=== PATIENT | male | born 1955 | race Caucasian/White ===

== ENCOUNTER 2020-05-25 06:15 | Inpatient (IN) ==
--- NOTE | 2020-05-06 14:17 | PAT Medication Instructions ---
Medication Instructions Date of Service May 06, 2020 Home Medications Medication Instructions Recorded nitroglycerin 0.4 mg sublingual 0.4 mg SL Q5M PRN #25 tab 12/25/18 tablet nitroglycerin 0.4 mg sublingual tablet 0.4 mg SL Q5M PRN cyclobenzaprine 10 mg tablet 10 mg PO Q12H PRN sertraline 50 mg tablet 50 mg PO QAM zolpidem 10 mg tablet 10 mg PO HS PRN B-complex with vitamin C 1 cap PO HS aspirin [Adult Low Dose Aspirin] 162 mg PO HS cholecalciferol (vitamin D3) 1,000 units PO QAM ezetimibe [Zetia] 10 mg PO HS fluticasone propionate [Flonase] 2 spray INTRANASAL DAILY PRN hydrocodone-acetaminophen [Vicodin] 1 tab PO Q6H PRN levothyroxine 88 mcg PO QAM melatonin 3 mg PO HS multivitamin [Multiple Vitamins] 1 tab PO HS nebivolol [Bystolic] 10 mg PO HS omeprazole 20 mg PO QAM ranolazine 2,000 mg PO HS rosuvastatin [Crestor] 40 mg PO HS tramadol 100 mg PO Q6H PRN Continue as directed nitroglycerin 0.4 mg sublingual tablet 0.4 mg SL Q5M PRN(if needed) ASK your prescriber and surgeon aspirin [Adult Low Dose Aspirin] 162 mg PO HS DO NOT take the morning of surgery cyclobenzaprine 10 mg tablet 10 mg PO Q12H PRN cholecalciferol (vitamin D3) 1,000 units PO QAM Take morning of surgery With a small sip of water, OTHERWISE NOTHING TO EAT OR DRINK AFTER MIDNIGHT: sertraline 50 mg tablet 50 mg PO QAM fluticasone propionate [Flonase] 2 spray INTRANASAL DAILY PRN (if needed) hydrocodone-acetaminophen [Vicodin] 1 tab PO Q6H PRN (okay to take up to 4 hours prior to surgery if needed) levothyroxine 88 mcg PO QAM omeprazole 20 mg PO QAM tramadol 100 mg PO Q6H PRN (okay to take up to 4 hours prior to surgery if needed) Take evening before surgery cyclobenzaprine 10 mg tablet 10 mg PO Q12H PRN (if needed) zolpidem 10 mg tablet 10 mg PO HS PRN (if needed) B-complex with vitamin C 1 cap PO HS ezetimibe [Zetia] 10 mg PO HS fluticasone propionate [Flonase] 2 spray INTRANASAL DAILY PRN (if needed) hydrocodone-acetaminophen [Vicodin] 1 tab PO Q6H PRN (if needed) melatonin 3 mg PO HS multivitamin [Multiple Vitamins] 1 tab PO HS nebivolol [Bystolic] 10 mg PO HS ranolazine 2,000 mg PO HS rosuvastatin [Crestor] 40 mg PO HS tramadol 100 mg PO Q6H PRN (if needed) Other Notes If you have any questions please call us at [phone] or [phone] or [phone] or [phone]
--- NOTE | 2020-05-10 14:35 | Anesthesiology Consultation ---
Date of Service May 10, 2020 Assessment & Plan (1) Encounter for pre-operative examination: - Per assessment on 05/10: Travel screen negative. No known COVID-19 positive contacts or current COVID-19 related symptoms. Patient had COVID related symptoms 02/18/20 of joint/abdominal pain, low grade fever, decreased taste/smell which resolved after short period of time without intervention except for mild residual taste deficits. Patient did not have any other recent episodes consistent with Covid related symptoms except those surrounding 02/17. Patient did not have formal testing at time of symptoms but did have COVID a ntibodies test 04/19/20 which was positive ([facility]). DOS > 21 days since COVID antibodies tested positive. Surgeon arranging preop COVID testing (scheduled 05/18; [facility]). Awaiting results. - PCP office visit: 05/11/20: "He is doing well from a cardiopulmonary standpoint. Risk would be mild to moderate given multiple comorbidities.. medically optimized for surgery" - ASA instructions per surgeon/prescriber - Rib fracture: Mechanical fall 04/17/19 > Acute/subacute nondisplaced right lateral 7th rib fracture per 05/06/20 CT. Pt reports residual rib pain but improving. PCP monitoring. Chart Review Chart Review: Acceptable Risk for Surgery (pending surgeon-ordered cardiology clearance) and Patient seen in Pre Admission Testing Teaching & Discussion Pre-Anesthesia Teaching/Discussion Notes: Instructed NPO after midnight before surgery,except medications with 15 cc of water. Medication instructions provided according to the PAT guidelines. History Surgery Operation Date: 05/25/20 10:05 Proposed Procedures p L5-S1 Decompression Fusion, Spinal Cord Monitoring - Ramone Mann DO Height/Weight Height: 5 ft 11 in Weight: 100.8 kg Allergies Allergy/AdvReac Type Severity Reaction Status Date / Time LORCET Allergy Mild Itching Uncoded 05/04/20 10:49 Medications Home Medications Medication Instructions Recorded Confirmed Last Taken nitroglycerin 0.4 mg sublingual 0.4 mg SL Q5M PRN #25 tab 12/25/18 05/04/20 Unknown tablet cyclobenzaprine 10 mg tablet 10 mg PO Q12H PRN tab 02/25/19 05/04/20 Unknown sertraline 50 mg tablet 50 mg PO QAM 02/25/19 05/04/20 Unknown zolpidem 10 mg tablet 10 mg PO HS PRN tab 02/25/19 05/04/20 Unknown B-complex with vitamin C 1 cap PO HS 05/04/20 05/04/20 Unknown aspirin [Adult Low Dose Aspirin] 162 mg PO HS 05/04/20 05/04/20 Unknown cholecalciferol (vitamin D3) 1,000 units PO QAM 05/04/20 05/04/20 Unknown ezetimibe [Zetia] 10 mg PO HS 05/04/20 05/04/20 Unknown fluticasone propionate [Flonase] 2 spray INTRANASAL DAILY PRN 05/04/20 05/04/20 Unknown hydrocodone-acetaminophen [Vicodin] 1 tab PO Q6H PRN 05/04/20 05/04/20 Unknown levothyroxine 88 mcg PO QAM 05/04/20 05/04/20 Unknown melatonin 3 mg PO HS 05/04/20 05/04/20 Unknown multivitamin [Multiple Vitamins] 1 tab PO HS 05/04/20 05/04/20 Unknown nebivolol [Bystolic] 10 mg PO HS 05/04/20 05/04/20 Unknown omeprazole 20 mg PO QAM 05/04/20 05/04/20 Unknown ranolazine 2,000 mg PO HS 05/04/20 05/04/20 Unknown rosuvastatin [Crestor] 40 mg PO HS 05/04/20 05/04/20 Unknown tramadol 100 mg PO Q6H PRN 05/04/20 05/04/20 Unknown Past Medical History Medical History (Updated 05/13/20 @ 08:37 by Marsha Thompson) CAD (coronary artery disease) stent x1 to LAD (2003) Chronic back pain RLE radiculopathy Depression Dyslipidemia History of COVID-19 02/18/20 patient had symptoms of joint/abdominal pain, low grade fever, decreased taste/smell which resolved after short period of time without intervention except for mild residual taste deficits. 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 Exercise / Class Metabolic Activity II 4-5 Yardwork/Stairs/Walk up hill Past Family History Family History Grandfather (Maternal) Coronary heart disease Grandmother (Maternal) Family history of diabetes mellitus Father Family hx of colon cancer Past Surgical History Surgical History H/O hernia repair History of cardiac cath 2003 (stent x1), 2015 (no stent) History of colonoscopy History of esophagogastroduodenoscopy (EGD) History of foot surgery Left great toe Past Anesthesia History No Hx of Anesthesia Complications and No Family Hx of Anesthesia Complications History of PONV No Hx of PONV and Hx of Motion Sickness (+ boat rides) Social History Smoking Status: Never smoker Do You Dip or Chew Tobacco: No Hx Alcohol Use: Yes Alcohol type: wine and hard liquor alcohol intake frequency: 0-2 drinks per day (2 drinks/day a few days per week) Hx Substance Use: No Review of Systems Patient denies chest pain, shortness of breath, dyspnea on exertion, joint pain, reflux, cough, wheezing, palpitations. Physical Exam Vital Signs VITALS BP 159/84 P 72 TEMP SP02 99%RA RESP 16 PHYSICAL Full neck and c-spine range of motion. Full TMJ range of motion. TMD 3 finger breaths Mallampati Score 2 Dentition: intact Lungs: clear throughout to auscultation Cardiac: regular rate and rhythm, no murmurs noted Spine: normal Carotid arteries: negative bruit Extremities: no edema Testing Laboratory Results 05/10/20 15:15 05/10/20 15:15 PT 10.7 Seconds (9.0-12.0) 05/10/20 15:15 INR 1.1 (0.9-1.1) 05/10/20 15:15 APTT 25.3 Seconds (21.0-31.0) 05/10/20 15:15 Urine Color Dark Yellow 05/10/20 Unknown Urine Appearance Clear (Clear) 05/10/20 Unknown Urine pH 6.5 (4.5-7.5) 05/10/20 Unknown Ur Specific [place] 1.026 (1.000-1.030) 05/10/20 Unknown Urine Protein Negative (Negative) 05/10/20 Unknown Urine Glucose (UA) Negative (Negative) 05/10/20 Unknown Urine Ketones Trace (Negative) H 05/10/20 Unknown Urine Nitrite Negative (Negative) 05/10/20 Unknown Ur Leukocyte Esterase Negative (Negative) 05/10/20 Unknown Blood Type O Negative 05/10/20 15:15 Antibody Screen NEGATIVE 05/10/20 15:15 Electrocardiogram Date: 05/10/20 Findings: + NSR @ (66) Chest X-Ray Date: 04/19/20 No acute displaced right rib fracture is identified. The visualized lungs are clear, without focal consolidation, pleural effusion, or pneumothorax. Cardiac Catheterization Date: 12/11/15 Coronary Anatomy Dominant: Right Left Main (% Stenosis): Ostial (30), Distal (20) LAD (% Stenosis): Proximal (10-20 in stent), Mid (30-40,50-70), Distal (0- 10) D1 (% Stenosis): Ostial (30) Circumflex (% Stenosis): Proximal (20), Mid (0-10), Distal (0-10) RCA (% Stenosis): Proximal (30), Mid (30-40,75), Distal (0-10) R PDA (% Stenosis): Proximal (0-10), Mid (0-10) R PL1 (% Stenosis): Proximal (0-10), Mid (0-10) Ramus (% Stenosis): Mid, Distal (0-10), Proximal (30) Left Ventricular Angiography EF (%): 55 Medical therapy recommended. Other Testing CT Chest: 05/06/20: Patent central airways. The lungs are clear. No pleural effusion or pneumothorax. Acute/subacute nondisplaced fracture of the right lateral 7th rib. No pneumothorax.
[2020-05-10 16:00] LABS: Basophils # (auto) 0.01 K/uL (0-0.2); Basophils % (auto) 0.2 %; Eosinophils # (auto) 0.17 K/uL (0-0.5); Eosinophils % (auto) 3.1 %; Hematocrit (blood only) 41.4 % (42-52); Hemoglobin 14.2 g/dL (14.0-18.0); Immature Granulocytes # (auto) 0.01 K/uL (0.00-0.02); Immature Granulocytes % (auto) 0.2 %; Lymphocytes # (auto) 1.18 K/uL (1.2-3.4); Lymphocytes % (auto) 21.3 %; Mean Corpuscular Hemoglobin 31.1 pg (25-34); Mean Corpuscular Hgb Conc 34.3 g/dL (32-36); Mean Corpuscular Volume 90.6 fL (80-100); Mean Platelet Volume 8.8 fL (7.4-10.4); Monocytes # (auto) 0.75 K/uL (0.11-0.59); Monocytes % (auto) 13.6 %; Neutrophils # (auto) 3.41 K/uL (1.4-6.5); Neutrophils % (auto) 61.6 %; Platelet Count 139 K/uL (130-400); RDW Coefficient of Variation 13.1 % (11.5-14.5); RDW Standard Deviation 43.3 fL (36.4-46.3); Red Blood Count 4.57 M/uL (4.7-6.1); White Blood Count 5.53 K/uL (4.8-10.8)
[2020-05-10 16:19] LABS: BUN Creatinine Ratio 16.8 (10-20); Creatinine Clr Calc Pharmacy 73.8 ml/min; Est GFR (African American) 73.3; Est GFR (Non-African American) 63.3; Potassium 4.3 mmol/L (3.5-5.1)
[2020-05-10 16:24] LABS: INR 1.1 (0.9-1.1); Partial Thromboplastin Time 25.3 Seconds (21.0-31.0); Prothrombin Time 10.7 Seconds (9.0-12.0)
[2020-05-10 16:39] LABS: Appearance Urine Clear (Clear); Bilirubin Urine Negative (Negative); Blood Urine Negative (Negative); Color Urine Dark Yellow; Glucose Urine UA Negative (Negative); Ketones Urine Trace (Negative); Leukocyte Esterase Urine Negative (Negative); Nitrite Urine Negative (Negative); Protein Urine Negative (Negative); Specific Gravity Urine 1.026 (1.000-1.030); Urobilinogen Urine Negative (Negative); pH Urine 6.5 (4.5-7.5)
--- NOTE | 2020-05-10 17:06 | Electrocardiogram Report ---
Test Reason : Blood Pressure : / mmHG Vent. Rate : 066 BPM Atrial Rate : 066 BPM P-R Int : 178 ms QRS Dur : 094 ms QT Int : 432 ms P-R-T Axes : 072 -04 038 degrees QTc Int : 452 ms Normal sinus rhythm Normal ECG No previous ECGs available Confirmed by Lonnie Escalante ([id number]) on 05/10/2020 5:06:22 PM Referred By: Ramone Mann Confirmed By:Lonnie Escalante
[~2020-05-25 06:15] MED LIST: ACETAMINOPHEN 500 MG TAB PO SCH; CeleBREX 200 MG CAP PO SCH; GABAPENTIN 300 MG CAP PO SCH; LR 15ML/HR IV SCH; ceFAZolin 2000MG 2,000 MG/15 ML SYR IV SCH
[2020-05-25] MEDS ORDERED: DEXAMETHASONE SOD INJ 4 MG/ML VIAL ONE (06:39)
[2020-05-25] MEDS ORDERED: ONDANSETRON INJ 2 MG/ML 2 ML VIAL ONE (06:39)
[2020-05-25] MEDS ORDERED: ROCURONIUM BROMIDE 10 MG/ML 5 ML VIAL IV ONE ×2 (06:39→13:27)
[2020-05-25] MEDS ORDERED: LIDOCAINE HCL 2% 2 ML VIAL/AMP(20MG/ML) INFIL ONE (06:39)
[2020-05-25] MEDS ORDERED: fentaNYL citrate 100 MCG/2 ML VIAL ONE (06:39)
[2020-05-25] MEDS ORDERED: PROPOFOL IV EMULSION 10 MG/ML 20 ML VIAL IV ONE (06:39)
[2020-05-25] MEDS ORDERED: ATROPINE SULFATE 0.1 MG/ML 10ML SYR IV PRN (06:45)
[2020-05-25] MEDS ORDERED: ePHEDrine sulfate 50 MG/ML AMP IV PRN (06:45)
[2020-05-25] MEDS ORDERED: HYDROmorphone INJ 2 MG/ML SYR/VIAL IV PRN (06:45)
[2020-05-25] MEDS ORDERED: ONDANSETRON INJ 2 MG/ML 2 ML VIAL IV PRN ×2 (06:45→10:37)
[2020-05-25] MEDS ORDERED: BUPIVACAINE/EPINEPHRINE 0.5% MPF 1:200,000 30 ML VIAL ONE (07:08)
[2020-05-25] MEDS ORDERED: BACITRACIN INJ 50,000 UNIT VIAL ONE (07:08)
[2020-05-25] MEDS ORDERED: MIDAZOLAM HCL 1 MG/ML 2ML VIAL ONE (07:28)
[2020-05-25] MEDS ORDERED: KETAMINE 50 MG/5 ML SYRINGE ONE (07:29)
--- NOTE | 2020-05-25 07:35 | History & Physical Bridge Note ---
Date of Service May 25, 2020 History & Physical Bridge Note I have examined the patient, reviewed the History & Physical and in the interval since the performance of the History & Physical I have noted the following changes of clinical significance: no changes noted
--- NOTE | 2020-05-25 07:36 | History & Physical Report ---
Date of Service May 25, 2020 Assessment & Plan (1) Neurogenic claudication due to lumbar spinal stenosis: Admission and Anticipated Discharge Date Admission Date: L5-S1 decompression fusion History of Present Illness Chief Complaint: Back and leg pain Primary Care Provider: Moise Parish MD This is a 65-year-old male who presents with chronic persistent back and leg pain. Failing course of nonoperative care is here for surgical invention. Allergies Allergy/AdvReac Type Severity Reaction Status Date / Time hydrocodone Allergy Verified 05/25/20 06:37 acetaminophen [From Percocet] AdvReac Verified 05/25/20 06:37 oxycodone [From Percocet] AdvReac Verified 05/25/20 06:37 LORCET Allergy Mild Itching Uncoded 05/25/20 06:37 Home Medications Medication Instructions Recorded Confirmed Type nitroglycerin 0.4 mg sublingual 0.4 mg SL Q5M PRN #25 tab 12/25/18 05/25/20 Rx tablet cyclobenzaprine 10 mg tablet 10 mg PO Q12H PRN tab 02/25/19 05/25/20 History sertraline 50 mg tablet 50 mg PO QAM 02/25/19 05/25/20 History zolpidem 10 mg tablet 10 mg PO HS PRN tab 02/25/19 05/25/20 History B-complex with vitamin C 1 cap PO HS 05/04/20 05/25/20 History aspirin [Adult Low Dose Aspirin] 162 mg PO HS 05/04/20 05/25/20 History cholecalciferol (vitamin D3) 1,000 units PO QAM 05/04/20 05/25/20 History ezetimibe [Zetia] 10 mg PO HS 05/04/20 05/25/20 History fluticasone propionate [Flonase] 2 spray INTRANASAL DAILY PRN 05/04/20 05/25/20 History hydrocodone-acetaminophen [Vicodin] 1 tab PO Q6H PRN 05/04/20 05/25/20 History levothyroxine 88 mcg PO QAM 05/04/20 05/25/20 History melatonin 3 mg PO HS 05/04/20 05/25/20 History multivitamin [Multiple Vitamins] 1 tab PO HS 05/04/20 05/25/20 History nebivolol [Bystolic] 10 mg PO HS 05/04/20 05/25/20 History omeprazole 20 mg PO QAM 05/04/20 05/25/20 History ranolazine 2,000 mg PO HS 05/04/20 05/25/20 History rosuvastatin [Crestor] 40 mg PO HS 05/04/20 05/25/20 History tramadol 100 mg PO Q6H PRN 05/04/20 05/25/20 History Past Med/Surg History Medical History (Updated 05/25/20 @ 07:36 by Ramone Mann DO) CAD (coronary artery disease) stent x1 to LAD (2003) Chronic back pain RLE radiculopathy Depression Dyslipidemia History of COVID-19 02/18/20 patient had symptoms of joint/abdominal pain, low grade fever, decreased taste/smell which resolved after short period of time without intervention except for mild residual taste deficits. 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 Surgical History H/O hernia repair History of cardiac cath 2003 (stent x1), 2015 (no stent) History of colonoscopy History of esophagogastroduodenoscopy (EGD) History of foot surgery Left great toe Family History Grandfather (Maternal) Coronary heart disease Grandmother (Maternal) Family history of diabetes mellitus Father Family hx of colon cancer Social History (Updated 05/04/20 @ 11:30 by Lena Duggan RN) Smoking Status: Never smoker Second Hand Exposure: Yes (FATHER SMOKED); Do You Dip or Chew Tobacco: No; Hx Alcohol Use: Yes Alcohol type: wine and hard liquor Hx Substance Use: No Preferred Language: Vietnamese Communication Ability: Effective Desktop Architect Required: No Beliefs That Will Affect Care: None marital status: Current Living Situation: Spouse current occupational status: retired current occupation: Psychologist Other Information That Helps Us Care for You: No Feels Safe at Home: Yes Safety Concerns: Feels Safe At This Time Assistive Devices: Glasses and Hearing Aid - Bilateral Physical Exam Physical Exam: Patient is alert and oriented Heart regular in rhythm Lungs clear to auscultation Results & Data ([facility]) Vital Signs (Past 12 Hours) Vital Signs Temp Pulse Resp BP Pulse Ox 05/25/20 06:51 36.5 C 59 L 18 163/83 H 97
[2020-05-25] MEDS ORDERED: GLYCOPYRROLATE 0.2 MG/ML VIAL ONE (08:26)
[2020-05-25] MEDS ORDERED: NEOSTIGMINE METHYLSULFATE 1 MG/ML 10ML VIAL ONE (08:26)
[2020-05-25] MEDS ORDERED: FLOSEAL HEMOSTATIC MATRIX 10ML TOP ONE (09:12)
--- NOTE | 2020-05-25 09:23 | Operative Report ---
Post Operative Report Pre & Post Diagnosis Operation Date: 05/25/20 07:45 Pre-Op Diagnosis: Spinal Stenosis, Lumbar Region with Neurogenic Cla Post-Op Diagnosis: Spinal Stenosis, Lumbar Region with Neurogenic Cla I identified the patient and participated in the time-out.: Yes Procedure Operation Date: 05/25/20 07:45 Actual Procedures #1 lumbar decompression with bilateral medial facetectomies and foraminotomies L4-5 and L5-S1 per #2 posterior spinal fusion L5-S1 per #3 placed posterior instrumentation L5-S1 per #4 interbody fusion L5-S1. #5 placement peek cage 11 x 26 mm at L5-S1. 6 placement locally harvested morselized autograft in the posterior lateral gutters. #7 placement of I factor in the interbody space and posterior lateral gutters. Surgeon Ramone Mann, Trap Operator Corry Delaney Estimated Blood Loss 150 Findings Consistent with Post-Op Diagnosis Specimens None Indications Patient has a significant back and bilateral leg pain. Failing extensive course of nonoperative care is for surgical invention. Description of Procedure Patient is met with identified informed consent obtained. Patient was then taken to the operative suite underwent ablation placed in a prone position injectable top Santos frame. All bony prominences well-padded eyes inspected to ensure no external pressure placed upon the bed at this point the lumbar spine was prepped and draped in a sterile fashion. Sharp dissection with the assistance of Bovie cautery was performed down to and exposing the lamina and transverse processes of L5 and sacral ala bilaterally. From a caudal cephalad fashion complete laminectomy of L5 partial laminectomy of L4 was performed including bilateral medial facetectomies and foraminotomies addressing severe spinal stenosis. Pedicle screws were then placed in L5 and S1 levels bilaterally with assistance of fluoroscopy and the proper sized destini placed. By way of a transforaminal portion right complete discectomy was performed endplates curetted to subcortical being bone and a 11 x 26 mm peek cage filled with I factor tapped in position. The rods were then locked in final position bilaterally. The transverse processes of L5 and sacral ala burred to subcortical bleeding bone. I factor combined with local autograft placed in the posterior gutters. 15 round MISSY drain inserted. The incision was then closed with 1 Vicryl to fascia 2-0 Vicryl subcutaneously and 4 Monocryl for final skin closure. Steri-Strip sterile dressings placed. Patient will continue PACU stable condition. Please note spinal cord monitoring was utilized that the procedure no changes noted. Lastly Corry Delaney was present at the entire surgery involved the patient positioning complex portions of the surgery and final skin closure. I attest to the content of the Intraoperative Record and any orders documented therein. Any exceptions are noted below.
--- NOTE | 2020-05-25 09:40 | Fluoroscopy Report ---
FL lumbar spine 2-3V CLINICAL HISTORY: L5-S1 DECOMPRESSION AND FUSION COMPARISON STUDY: None. FLUOROSCOPY TIME: 22 seconds. FINDINGS: 2 fluoroscopic spot images of the lower lumbar spine demonstrate posterior decompression an d fusion at L5-S1 with pedicle screws and rods. The hardware appears intact. The disc spacer is locat ed anteriorly at the L5-S1 level. IMPRESSION: Fluoroscopy provided for L5-S1 posterior decompression and fusion. ACT 112: Negative or not required by law. Electronically signed by: Reuben King M.D. 05/25/2020 9:39 AM
[2020-05-25] MEDS: fentaNYL citrate 100 MCG/2 ML VIAL IV PRN ×2 (09:45→09:50)
[2020-05-25] MEDS ORDERED: HYDROmorphone INJ 1 MG/ML SYRINGE ONE (09:54)
[2020-05-25] MEDS ORDERED: SOD PHOSPHATE/SOD BIPHOSPHATE ENEMA 132 ML BTL PR PRN (10:37)
[2020-05-25] MEDS ORDERED: ALUMINUM/MAGNESIUM SUSP 30 ML UDC PO PRN (10:37)
[2020-05-25] MEDS ORDERED: hydrOXYzine HCl 25 MG TAB PO PRN (10:37)
[2020-05-25] MEDS ORDERED: FLUTICASONE PROPIONATE NA SPR 16 GM BTL PRN (10:37)
[2020-05-25] MEDS ORDERED: DO NOT ADMINISTER FLU VACCINE PRN (10:37)
[2020-05-25] MEDS ORDERED: DO NOT ADMINISTER PNEUMOCOCCAL VACCINE PRN (10:37)
[2020-05-25] MEDS ORDERED: ACETAMINOPHEN 1,000 MG/100 ML VIAL IV PRN (10:37)
[2020-05-25] MEDS ORDERED: LORazepam 0.5 MG/1 ML VIAL IV PRN (10:37)
[2020-05-25] MEDS ORDERED: METOCLOPRAMIDE HCL INJ 5 MG/ML 2 ML VIAL IV PRN (10:37)
[2020-05-25] MEDS ORDERED: MAGNESIUM HYDROXIDE SUSP 30 ML UDC PO PRN (10:37)
[2020-05-25] MEDS ORDERED: NALOXONE HCL 0.4 MG/1 ML VIAL/CARP IV PRN (10:37)
[2020-05-25] MEDS ORDERED: ONDANSETRON 4 MG OD TAB PO PRN (10:37)
[2020-05-25] MEDS ORDERED: bisacodyL 10 MG SUPP PR PRN (10:37)
[2020-05-25] MEDS ORDERED: NITROGLYCERIN SL 0.4 MG/TAB TAB SL PRN (10:37)
[2020-05-25] MEDS ORDERED: PROMETHAZINE HCL 12.5 MG in SODIUM CHLORIDE 0.9% 50 ML IV PRN (10:37)
[2020-05-25] MEDS ORDERED: LORazepam 0.5 MG TAB PO PRN (10:37)
[2020-05-25] MEDS ORDERED: FAMOTIDINE 20 MG TAB PO PRN (10:37)
[2020-05-25] MEDS ORDERED: ePHEDrine sulfate 50 MG/ML SYR ONE (10:50)
[2020-05-25] MEDS: LACTATED RINGER'S 1,000 ML IV SCH ×2 (10:55→17:38)
--- NOTE | 2020-05-25 11:09 | Consultation ---
Date of Consultation May 25, 2020 Assessment & Plan (1) Neurogenic claudication due to lumbar spinal stenosis: This is a 65-year-old male who has significant past medical history of CAD with history of stent to proximal LAD in 2004 and follows [facility] cardiology, HTN, HLD, hypothyroidism, BPH, GERD, depression who presents for elective L5-S1 decomp fusion. Status post L5-S1 decompression fusion by Dr. Mann, POD #0 EBL 150 mL; MISSY drain 90 mL Tolerated procedure well Pain/wound management per orthopedic Activity, therapy and diet per orthopedics Encourage incentive spirometry, weaned off oxygen Monitor H&H (2) CAD (coronary artery disease): Denies chest pain or shortness of breath Continue nebivolol, ASA, statin, ranolazine, Zetia Follows [place] PG cards (3) Hypertension: Blood pressure controlled Continue nebivolol (4) Dyslipidemia: Continue Crestor and Zetia (5) DVT prophylaxis: Per primary team SCD/teds Dispo: Per primary team PCP: Jem FULL CODE Patient was seen and examined in collaboration with Dr. Rodriguez, please see addendum Thank you for this consultation. We will follow the patient with you during their hospital stay. You can reach a member of the [facility] Hospitalist Team 01/10 via pager @ [phone] or through [employer] hospitalist role. Supervising Physician Co-Signing Physician Notes Patient seen and examined with CRUZ Sosa, please refer to her note for further detail. Patient is a 65-year-old male, who just underwent L5-S1 decompression and fusion with Dr. Mann. Patient is currently sitting up in bed, in no acute distress, he is alert and oriented and answering questions appropriately. He denies any chest pain shortness of breath, nausea, abdominal pain. Reports that back pain starts to be more noticeable now. He also feels urge to urinate however he did not void yet. Nursing staff notified. His surgical dressings on his lower back are bloody, and therefore nursing staff again was notified. Currently he is on 1 L of O2 per minute. Usually does not use supplemental oxygen. He is able to move lower extremities. Lung sounds are clear to auscultation bilaterally, heart sounds regular. Abdomen soft, nontender, nondistended, obese. Continue to closely monitor hemodynamic status, monitor for anemia, oxygen requirements. A. Knab, MD History of Present Illness Requesting Physician: Dr. Mann Reason for Consultation: Postop medical management Attending Physician: Ramone Mann DO History of Present Illness This is a 65-year-old male who has significant past medical history of CAD with history of stent to proximal LAD in 2003 and follows [facility] cardiology, HTN, HLD, hypothyroidism, BPH, GERD, depression who presents for elective lumbar procedure by Dr. Mann. Patient does suffer from chronic back pain and lumbar spinal stenosis with neurogenic claudication. He underwent L5-S1 decompression fusion today by Dr. Mann and tolerated the procedure well. Currently he is having incisional tenderness as well as right lower extremity and foot numbness. He offers no acute complaints. He denies any fever, chills, sweats, lightheadedness, dizziness, chest pain, shortness breath, cough, nausea, vomiting, abdominal pain, change in bowel or urinary habits. He did have a MISSY drain placed. In regards to CAD he is managed on nebivolol, ranolazine, Crestor, Zetia and ASA. He denies any exertional chest pain and follows r outinely with [facility] cardiology. Blood pressure is well controlled on nebivolol. 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 He denies any tobacco use. He does drink 2 glasses of wine nightly and if he does not drink wine he takes Ambien to help him sleep. His last alcoholic drink was 3 days ago. Denies any prior history of withdrawal. Allergies Allergy/AdvReac Type Severity Reaction Status Date / Time hydrocodone Allergy Verified 05/25/20 06:37 acetaminophen [From Percocet] AdvReac Verified 05/25/20 06:37 oxycodone [From Percocet] AdvReac Verified 05/25/20 06:37 LORCET Allergy Mild Itching Uncoded 05/25/20 06:37 Home Medications Medication Instructions Recorded Confirmed Type nitroglycerin 0.4 mg sublingual 0.4 mg SL Q5M PRN #25 tab 12/25/18 05/25/20 Rx tablet cyclobenzaprine 10 mg tablet 10 mg PO Q12H PRN tab 02/25/19 05/25/20 History sertraline 50 mg tablet 50 mg PO QAM 02/25/19 05/25/20 History zolpidem 10 mg tablet 10 mg PO HS PRN tab 02/25/19 05/25/20 History B-complex with vitamin C 1 cap PO HS 05/04/20 05/25/20 History aspirin [Adult Low Dose Aspirin] 162 mg PO HS 05/04/20 05/25/20 History cholecalciferol (vitamin D3) 1,000 units PO QAM 05/04/20 05/25/20 History ezetimibe [Zetia] 10 mg PO HS 05/04/20 05/25/20 History fluticasone propionate [Flonase] 2 spray INTRANASAL DAILY PRN 05/04/20 05/25/20 History hydrocodone-acetaminophen [Vicodin] 1 tab PO Q6H PRN 05/04/20 05/25/20 History levothyroxine 88 mcg PO QAM 05/04/20 05/25/20 History melatonin 3 mg PO HS 05/04/20 05/25/20 History multivitamin [Multiple Vitamins] 1 tab PO HS 05/04/20 05/25/20 History nebivolol [Bystolic] 10 mg PO HS 05/04/20 05/25/20 History omeprazole 20 mg PO QAM 05/04/20 05/25/20 History ranolazine 2,000 mg PO HS 05/04/20 05/25/20 History rosuvastatin [Crestor] 40 mg PO HS 05/04/20 05/25/20 History tramadol 100 mg PO Q6H PRN 05/04/20 05/25/20 History Patient History Medical History CAD (coronary artery disease) stent x1 to LAD (2003) Chronic back pain RLE radiculopathy Depression Dyslipidemia History of COVID-19 02/18/20 patient had symptoms of joint/abdominal pain, low grade fever, decreased taste/smell which resolved after short period of time without intervention except for mild residual taste deficits. 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 Surgical History H/O hernia repair History of cardiac cath 2003 (stent x1), 2015 (no stent) History of colonoscopy History of esophagogastroduodenoscopy (EGD) History of foot surgery Left great toe Family History Grandfather (Maternal) Coronary heart disease Grandmother (Maternal) Family history of diabetes mellitus Father Family hx of colon cancer Social History Smoking Status: Never smoker Second Hand Exposure: Yes (FATHER SMOKED); Do You Dip or Chew Tobacco: No; Hx Alcohol Use: Yes Alcohol type: wine and hard liquor Hx Substance Use: No Preferred Language: Citizen Of [place] Communication Ability: Effective Ski Patroller Required: No Beliefs That Will Affect Care: None marital status: Current Living Situation: Spouse current occupational status: retired current occupation: Psychologist Other Information That Helps Us Care for You: No Feels Safe at Home: Yes Safety Concerns: Feels Safe At This Time Assistive Devices: Glasses and Hearing Aid - Bilateral Review of Systems Review of Systems: All systems reviewed & are unremarkable except as noted in HPI & below Physical Exam Physical Exam: Constitutional: WD/WN, male, vitals as above, NAD, sitting up in bed, pleasant, conversing easily Head: Normocephalic, Atraumatic Eyes: PERRL, conjunctivae normal, anicteric sclerae ENMT: external ear and nose normal, oropharynx normal Neck: trachea midline, no thyromegaly normal visual inspection Respiratory: normal respiratory effort, lungs clear to auscultation, no wheeze, rales, rhonchi. Normal insp/exp effort, no accessory muscle use Cardiovascular: RRR, no murmur, no edema Vessels: no JVD or carotid bruit Chest: normal inspection of chest Abdomen: normal bowel sounds, soft, nontender, no hepatosplenomegaly Musculoskeletal: no cyanosis or clubbing, active range of motion x4, lumbar caleb ssing CDI with MISSY drain and serosanguineous drainage Skin: no rashes, warm and dry normal turgor Neurologic: PERRL, EOMI, accommodation nl, no face palsy, no dysarthria CN's II-XI intact bilaterally and moves all extremities Psychiatric: A+Ox3, euthymic affect Lymphatic: no cervical or axillary lymphadenopathy : deferred Results & Data ([facility]) Vital Signs (Past 12 Hours) Vital Signs Temp Pulse Pulse Resp BP BP Pulse Ox 05/25/20 10:30 36.2 C L 67 16 136/76 92 05/25/20 10:05 68 12 138/84 95 05/25/20 09:55 61 14 150/80 H 100 05/25/20 09:45 64 15 134/80 100 05/25/20 09:37 36.4 C L 76 16 160/79 H 99 05/25/20 06:51 36.5 C 59 L 18 163/83 H 97 Laboratory Results Preop labs 05/10/2020 CBC: WBC 5.53, H&H 14.2 and 41.4, platelet 139 BMP sodium 139, creatinine 4.3, BUN 20, creatinine 1.19, glucose 139 Urinalysis negative Diagnostic Findings Lumbar spine xray: IMPRESSION: Fluoroscopy provided for L5-S1 posterior decompression and fusion. CT scan chest 05/06/2020 Acute/subacute nondisplaced fracture of the right lateral seventh rib Chest x-ray 04/21/2020 No acute cardiopulmonary disease Medications Administered Acetaminophen (Acetaminophen 500 Mg Tab) 1,000 mg PO PREOP CARLO Stop: 05/25/20 18:00 Last Admin: 05/25/20 07:04 Dose: 1,000 mg Documented by: [id number] Celecoxib (Celebrex 200 Mg Cap) 200 mg PO PREOP CARLO Stop: 05/25/20 18:00 Last Admin: 05/25/20 07:04 Dose: 200 mg Documented by: [id number] Gabapentin (Gabapentin 300 Mg Cap) 300 mg PO PREOP CARLO Stop: 05/25/20 18:00 Last Admin: 05/25/20 07:03 Dose: 300 mg Documented by: [id number] Lactated Ringer's (Lr) 1,000 mls @ 15 mls/hr IV .Q24H CARLO Stop: 05/26/20 05:59 Last Infusion: 05/25/20 07:45 Dose: 0 mls/hr Documented by: [id number] Admin: 05/25/20 07:03 Dose: 15 mls/hr Documented by: [id number] Cefazolin Sodium (Ancef 2000mg) 2,000 mg in 15 mls @ 3.75 mls/min IV PREOP CARLO; Protocol Stop: 05/25/20 18:00 Last Admin: 05/25/20 07:44 Dose: 3.75 mls/min Documented by: [id number] Lactated Ringer's (Lr) 1,000 mls @ 150 mls/hr IV .Q6H40M CARLO Stop: 06/24/20 10:59 Last Admin: 05/25/20 10:55 Dose: 150 mls/hr Documented by: [id number] Discontinued Medications Bacitracin (Bacitracin Inj 50,000 Unit Vial) Confirm Administered Dose 50,000 units .ROUTE .STK-MED ONE Stop: 05/25/20 07:09 Last Admin: 05/25/20 08:20 Dose: 50,000 units Documented by: [id number] Bupivacaine HCl/Epinephrine Bitart (Bupivacaine/Epinephrine 0.5% Mpf 1:200,000 30 Ml Vial) Confirm Administered Dose 30 ml .ROUTE .STK-MED ONE Stop: 05/25/20 07:09 Last Admin: 05/25/20 08:19 Dose: 20 ml Documented by: [id number] Fentanyl Citrate (Fentanyl Citrate 100 Mcg/2 Ml Vial) 50 mcg IV Q5M PRN PRN Reason: PACU Use Only-Pain Stop: 05/25/20 14:46 Last Admin: 05/25/20 09:50 Dose: 50 mcg Documented by: [id number] Admin: 05/25/20 09:45 Dose: 50 mcg Documented by: [id number] Miscellaneous ( Floseal Hemostatic Matrix 10ml) 10 ml TOP ONCE ONE Stop: 05/25/20 09:13 Last Admin: 05/25/20 09:13 Dose: 10 ml Documented by: [id number] ECG Rate (beats per minute): 66 Rhythm: normal sinus
--- NOTE | 2020-05-25 11:45 | Anesthesiology Progress Note ---
Date of Service May 25, 2020 Anesthesia Post Procedure Vital Signs Vital Signs: Temp Pulse Pulse Resp BP BP Pulse Ox 05/25/20 11:00 36.5 C 65 20 144/76 H 97 05/25/20 10:30 36.2 C L 67 16 136/76 92 05/25/20 10:05 68 12 138/84 95 05/25/20 09:55 61 14 150/80 H 100 05/25/20 09:45 64 15 134/80 100 05/25/20 09:37 36.4 C L 76 16 160/79 H 99 05/25/20 06:51 36.5 C 59 L 18 163/83 H 97 Pain Intensity Back: Pain Intensity: 4 Transfer of Care Handoff Completed per policy Notes Mental Status: alert / awake / arousable and participated in evaluation Patient Amnestic to Procedure: Yes Nausea / Vomiting: adequately controlled Pain: adequately controlled Airway Patency, RR, SpO2: stable & adequate BP & HR: stable & adequate Hydration State: stable & adequate Anesthetic Complications: no major complications apparent and Pt Satisfied with anesthetic care
[2020-05-25] MEDS: KETOROLAC TROMETHAMINE 15 MG/ML VIAL IV SCH ×3 (11:51→23:16)
[2020-05-25] MEDS ORDERED: KETOROLAC TROMETHAMINE 15 MG/ML VIAL IM SCH (12:00)
[2020-05-25] MEDS: HYDROmorphone INJ 0.5 MG/0.5 ML SYR IV PRN (12:19)
[2020-05-25] MEDS: traMADol HCL 50 MG TABLET PO PRN (14:02)
[2020-05-25] MEDS: diphenhydrAMINE Capsule 25 MG CAP PO PRN (14:03)
[2020-05-25] MEDS: HYDROmorphone INJ 1 MG/ML SYRINGE IV PRN ×2 (15:37→20:04)
[2020-05-25] MEDS: ceFAZolin 2000MG 2,000 MG/15 ML SYR IV SCH ×2 (16:46→23:16)
[2020-05-25] MEDS: EZETIMIBE 10 MG TABLET PO SCH (20:21)
[2020-05-25] MEDS: METOPROLOL TARTRATE 25 MG TAB PO SCH (20:21)
[2020-05-25] MEDS: VITAMIN B COMPLEX TAB PO SCH (20:22)
[2020-05-25] MEDS: DOCUSATE SODIUM/SENNA 50/8.6MG TAB PO SCH (20:22)
[2020-05-25] MEDS: ROSUVASTATIN CALCIUM 20 MG TAB PO SCH (20:22)
[2020-05-25] MEDS: ASPIRIN 81 MG ECTAB PO SCH (20:22)
[2020-05-25] MEDS: ASCORBIC ACID 500 MG TAB PO SCH (20:22)
[2020-05-25] MEDS: MELATONIN 3 MG TAB PO SCH (20:25)
[2020-05-25] MEDS ORDERED: B COMPLEX WITH VITAMIN C PO SCH (21:00)
[2020-05-25] MEDS: RANOLAZINE 500 MG ER TAB PO SCH (21:43)
[2020-05-26] MEDS: LACTATED RINGER'S 1,000 ML IV SCH ×2 (00:02→08:15)
[2020-05-26] MEDS: KETOROLAC TROMETHAMINE 15 MG/ML VIAL IV SCH (05:40)
[2020-05-26] MEDS: POLYETHYLENE (MIRALAX) 17 GM PACK PO SCH ×4 (05:42→22:49)
[2020-05-26] MEDS: LEVOTHYROXINE SODIUM 88 MCG TABLET PO SCH (06:02)
[2020-05-26] MEDS: diphenhydrAMINE Capsule 25 MG CAP PO PRN ×4 (07:17→20:25)
[2020-05-26] MEDS: traMADol HCL 50 MG TABLET PO PRN ×3 (07:17→20:26)
[2020-05-26 07:43] LABS: Basophils # (auto) 0.01 K/uL (0-0.2); Basophils % (auto) 0.1 %; Hematocrit (blood only) 33.9 % (42-52); Hemoglobin 11.6 g/dL (14.0-18.0); Immature Granulocytes # (auto) 0.05 K/uL (0.00-0.02); Immature Granulocytes % (auto) 0.4 %; Lymphocytes # (auto) 1.03 K/uL (1.2-3.4); Mean Corpuscular Hgb Conc 34.2 g/dL (32-36); Mean Corpuscular Volume 90.6 fL (80-100); Mean Platelet Volume 8.3 fL (7.4-10.4); Monocytes # (auto) 1.56 K/uL (0.11-0.59); Monocytes % (auto) 13.7 %; Neutrophils # (auto) 8.74 K/uL (1.4-6.5); Neutrophils % (auto) 76.8 %; Platelet Count 133 K/uL (130-400); RDW Coefficient of Variation 13.3 % (11.5-14.5); RDW Standard Deviation 43.5 fL (36.4-46.3); Red Blood Count 3.74 M/uL (4.7-6.1); White Blood Count 11.39 K/uL (4.8-10.8)
[2020-05-26 08:10] LABS: BUN Creatinine Ratio 12.1 (10-20); Calcium 8.7 mg/dl (8.5-10.1); Creatinine Clr Calc Pharmacy 94.9 ml/min; Est GFR (African American) 100.1; Est GFR (Non-African American) 86.4; Potassium 4.2 mmol/L (3.5-5.1)
[2020-05-26] MEDS: CHOLECALCIFEROL 1,000 UNITS 25 MCG TAB PO SCH (08:21)
[2020-05-26] MEDS: SERTRALINE HCL 50 MG TABLET PO SCH (08:21)
[2020-05-26] MEDS: PANTOprazole 40 MG TAB PO SCH (08:22)
[2020-05-26] MEDS: METOPROLOL TARTRATE 25 MG TAB PO SCH ×2 (08:22→20:21)
--- NOTE | 2020-05-26 09:17 | Hospitalist Consultation ---
Date of Consultation May 26, 2020 Assessment & Plan (1) Neurogenic claudication due to lumbar spinal stenosis: This is a 65-year-old male who has significant past medical history of CAD with history of stent to proximal LAD in 2004 and follows [facility] cardiology, HTN, HLD, hypothyroidism, BPH, GERD, depression who is POD#1 s/p L5-S1 decomp fusion. Status post L5-S1 decompression fusion by Dr. Mann, POD #1 EBL 150 mL; MISSY drain 90 mL Tolerated procedure well Pain/wound management per orthopedic Activity, therapy and diet per orthopedics Encourage incentive spirometry, weaned off oxygen Monitor H&H (2) CAD (coronary artery disease): Denies chest pain or shortness of breath Continue nebivolol, ASA, statin, ranolazine, Zetia Follows [place] PG cards (3) Hypertension: Blood pressure controlled Continue nebivolol (4) Dyslipidemia: Continue Crestor and Zetia (5) DVT prophylaxis: Per primary team SCD/teds Dispo: Per primary team PCP: Jem Patient was seen and examined in collaboration with Dr. Rodriguez, please see addendum Thank you for this consultation. We will follow the patient with you during their hospital stay. You can reach a member of the [facility] Hospitalist Team 01/10 via pager @ [phone] or through [employer] hospitalist role. History of Present Illness Reason for Consultation: post op med mgmt Attending Physician: Ramone Mann DO History of Present Illness Seen and examined in [facility]. Allergies Allergy/AdvReac Type Severity Reaction Status Date / Time hydrocodone Allergy Verified 05/25/20 06:37 acetaminophen [From Percocet] AdvReac Verified 05/25/20 06:37 oxycodone [From Percocet] AdvReac Verified 05/25/20 06:37 LORCET Allergy Mild Itching Uncoded 05/25/20 06:37 Home Medications Medication Instructions Recorded Confirmed Type nitroglycerin 0.4 mg sublingual 0.4 mg SL Q5M PRN #25 tab 12/25/18 05/25/20 Rx tablet cyclobenzaprine 10 mg tablet 10 mg PO Q12H PRN tab 02/25/19 05/25/20 History sertraline 50 mg tablet 50 mg PO QAM 02/25/19 05/25/20 History zolpidem 10 mg tablet 10 mg PO HS PRN tab 02/25/19 05/25/20 History B-complex with vitamin C 1 cap PO HS 05/04/20 05/25/20 History aspirin [Adult Low Dose Aspirin] 162 mg PO HS 05/04/20 05/25/20 History cholecalciferol (vitamin D3) 1,000 units PO QAM 05/04/20 05/25/20 History ezetimibe [Zetia] 10 mg PO HS 05/04/20 05/25/20 History fluticasone propionate [Flonase] 2 spray INTRANASAL DAILY PRN 05/04/20 05/25/20 History hydrocodone-acetaminophen [Vicodin] 1 tab PO Q6H PRN 05/04/20 05/25/20 History levothyroxine 88 mcg PO QAM 05/04/20 05/25/20 History melatonin 3 mg PO HS 05/04/20 05/25/20 History multivitamin [Multiple Vitamins] 1 tab PO HS 05/04/20 05/25/20 History nebivolol [Bystolic] 10 mg PO HS 05/04/20 05/25/20 History omeprazole 20 mg PO QAM 05/04/20 05/25/20 History ranolazine 2,000 mg PO HS 05/04/20 05/25/20 History rosuvastatin [Crestor] 40 mg PO HS 05/04/20 05/25/20 History tramadol 100 mg PO Q6H PRN 05/04/20 05/25/20 History Patient History Medical History CAD (coronary artery disease) stent x1 to LAD (2003) Chronic back pain RLE radiculopathy Depression Dyslipidemia History of COVID-19 02/18/20 patient had symptoms of joint/abdominal pain, low grade fever, decreased taste/smell which resolved after short period of time without intervention except for mild residual taste deficits. 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 Surgical History H/O hernia repair History of cardiac cath 2003 (stent x1), 2016 (no stent) History of colonoscopy History of esophagogastroduodenoscopy (EGD) History of foot surgery Left great toe Family History Grandfather (Maternal) Coronary heart disease Grandmother (Maternal) Family history of diabetes mellitus Father Family hx of colon cancer Social History Smoking Status: Never smoker Second Hand Exposure: Yes (FATHER SMOKED); Do You Dip or Chew Tobacco: No; Hx Alcohol Use: Yes Alcohol type: wine and hard liquor Hx Substance Use: No Preferred Language: U[place] Communication Ability: Effective Outsole Rounder Required: No Beliefs That Will Affect Care: None marital status: Current Living Situation: Spouse current occupational status: retired current occupation: Psychologist Other Information That Helps Us Care for You: No Feels Safe at Home: Yes Safety Concerns: Feels Safe At This Time Assistive Devices: Glasses Review of Systems Review of Systems: At least ten systems reviewed and negative except as noted in the HPI. Results & Data Results & Data ([facility]) Vital Signs (Past 12 Hours) Vital Signs Temp Pulse Pulse Resp BP BP Pulse Ox 05/26/20 07:03 36.9 C 63 18 153/74 H 96 05/26/20 02:30 36.8 C 64 16 122/62 96 05/25/20 22:18 36.9 C 64 16 128/65 94 Laboratory Results Short CBC 05/26/20 Range/Units 07:29 WBC 11.39 H (4.8-10.8) K/uL Hgb 11.6 L (14.0-18.0) g/dL Hct 33.9 L (42-52) % Plt Count 133 (130-400) K/uL BMP 05/26/20 07:29 Sodium 137 Potassium 4.2 Chloride 106 Carbon Dioxide 28 BUN 11 Creatinine 0.92 Glucose 120 H Calcium 8.7
--- NOTE | 2020-05-26 09:24 | Hospitalist Progress Note ---
Date of Service May 26, 2020 Assessment & Plan (1) Neurogenic claudication due to lumbar spinal stenosis: This is a 65-year-old male who has significant past medical history of CAD with history of stent to proximal LAD in 2004 and follows [facility] [place], HTN, HLD, hypothyroidism, BPH, GERD, depression who is POD#1 s/p L5-S1 decomp fusion. Status post L5-S1 decompression fusion by Dr. Mann, POD #1 EBL 150 mL; MISSY drain 455 mL to date Pain/wound management per orthopedic Activity, therapy and diet per orthopedics Not yet passing flatus, abdomen mildly distended on exam but no nausea/vomiting- continue bowel regimen, consider KUB tomorrow Encourage incentive spirometry, weaned off oxygen Monitor H&H Acute blood loss anemia and dilutional anemia Hgb down to 11.6 Expected post-op Cont to monitor H&H No need for blood transfusion (2) CAD (coronary artery disease): Denies chest pain or shortness of breath Continue nebivolol, ASA, statin, ranolazine, Zetia Follows [place] PG cards (3) Hypertension: Blood pressure controlled Continue nebivolol (4) Dyslipidemia: Continue Crestor and Zetia (5) DVT prophylaxis: Per primary team SCD/teds Dispo: Per primary team PCP: Dr. Parish Patient was seen and examined in collaboration with Dr. Rodriguez, please see addendum Thank you for this consultation. We will follow the patient with you during their hospital stay. You can reach a member of the [facility] Hospitalist Team 01/10 via pager @ [phone] or through [employer] hospitalist role. Admission and Anticipated Discharge Date Admission Date: May 25, 2020 Supervising Physician Co-Signing Physician Notes Pt seen and examined by me, care coordinated with Angela Diaz PA-C, pls see her note above for further detail. Pt is currently laying in bed in [facility]. Reports he has been walking today w/o difficulty. Has minimal post surgical back pain. No fever, chills, chest pain, shortness of breath. He is voiding w/o difficulty but no BM yet. He has been eating. Lungs are CTAB, heart sounds regular. Abdomen soft, mildly distended, nontender to palp. Pt moves extremities. Some drop in Hgb noted - likely dilutional and acute blood loss/ post-op, expected, no need for blood transfusion, cont. to monitor H&H. Ignacio Rodriguez MD Subjective Seen and examined in [id number]. Minimal surgical pain today with some extension into R sciatic, which was previous prior to surgery. Tolerating diet without issue. Not passing flatus since surgery yesterday. No bowel movement yet. Denies any f ever, chills, lightheadedness, headache, chest pain, shortness of breath, nausea, vomiting, abdominal pain, dysuria or diarrhea. Review of Systems Review of Systems: At least ten systems reviewed and negative except as noted in the HPI. Physical Exam Physical Exam: General Appearance: WD/WN, vitals as above, NAD, sitting in bedside chair, pleasant, conversing easily Head: normocephalic, atraumatic Eyes: normal inspection, PERRL, conjunctivae normal, anicteric sclerae ENT: external ear and nose normal, oropharynx normal Neck: normal visual inspection, trachea midline, no thyromegaly Respiratory: normal respiratory effort, lungs clear to auscultation, no wheeze, rales, rhonchi. No accessory muscle use Cardiovascular: regular rate, rhythm, no murmur, normal peripheral pulses, no BLE edema. Vessels: no JVD Chest: normal inspection of chest Abdomen/GI: hypoactive bowel sounds, soft but distended, nontender, no hepatosplenomegaly Extremities/Musculoskeletal: Lumbar surgical dressing c/d/i. MISSY drain visualized. No cyanosis or clubbing, extremities motor strength 5/5 Neurologic: PERRL, EOMI, accommodation nl, no face palsy, no dysarthria, CN's II-XI intact bilaterally and moves all extremities Psychiatric: A+Ox3, euthymic affect Skin: no rashes, normal color, warm/dry Results & Data Results & Data ([facility]) Vital Signs (Past 12 Hours) Vital Signs Temp Pulse Pulse Resp BP BP Pulse Ox 05/26/20 07:03 36.9 C 63 18 153/74 H 96 05/26/20 02:30 36.8 C 64 16 122/62 96 05/25/20 22:18 36.9 C 64 16 128/65 94 Laboratory Results Short CBC 05/26/20 Range/Units 07:29 WBC 11.39 H (4.8-10.8) K/uL Hgb 11.6 L (14.0-18.0) g/dL Hct 33.9 L (42-52) % Plt Count 133 (130-400) K/uL BMP 05/26/20 07:29 Sodium 137 Potassium 4.2 Chloride 106 Carbon Dioxide 28 BUN 11 Creatinine 0.92 Glucose 120 H Calcium 8.7
[2020-05-26] MEDS: HYDROmorphone INJ 0.5 MG/0.5 ML SYR IV PRN (10:39)
--- NOTE | 2020-05-26 15:24 | Orthopedic Progress Note ---
Date of Service May 26, 2020 Assessment & Plan (1) Neurogenic claudication due to lumbar spinal stenosis: Admission and Anticipated Discharge Date Admission Date: May 25, 2020 This time we will continue physical therapy monitor his MISSY operatively discharge home in next day or so. Subjective Back pain controlled leg symptoms improved Physical Exam Physical Exam: Patient is comfortable with good strength testing. Results & Data ([facility]) Vital Signs (Past 12 Hours) Vital Signs Temp Pulse Resp BP Pulse Ox 05/26/20 15:07 37.2 C 63 20 156/79 H 93 05/26/20 11:00 36.8 C 62 18 145/75 H 98 05/26/20 07:03 36.9 C 63 18 153/74 H 96
[2020-05-26] MEDS: HYDROmorphone INJ 1 MG/ML SYRINGE IV PRN (17:42)
[2020-05-26] MEDS: DOCUSATE SODIUM/SENNA 50/8.6MG TAB PO SCH (20:18)
[2020-05-26] MEDS: ASCORBIC ACID 500 MG TAB PO SCH (20:18)
[2020-05-26] MEDS: RANOLAZINE 500 MG ER TAB PO SCH (20:19)
[2020-05-26] MEDS: ROSUVASTATIN CALCIUM 20 MG TAB PO SCH (20:19)
[2020-05-26] MEDS: ASPIRIN 81 MG ECTAB PO SCH (20:21)
[2020-05-26] MEDS: VITAMIN B COMPLEX TAB PO SCH (20:21)
[2020-05-26] MEDS: MELATONIN 3 MG TAB PO SCH (20:22)
[2020-05-26] MEDS: EZETIMIBE 10 MG TABLET PO SCH (20:22)
[2020-05-26] MEDS: ACETAMINOPHEN 500 MG TAB PO PRN (20:25)
[2020-05-26] MEDS ORDERED: diphenhydrAMINE Capsule 25 MG CAP PO ONE (22:42)
[2020-05-26] MEDS ORDERED: diphenhydrAMINE Capsule 25 MG CAP ONE (22:46)
[2020-05-26] MEDS: ZOLPIDEM TARTRATE 10 MG TAB PO PRN ×2 (22:49)
[2020-05-27] MEDS: LEVOTHYROXINE SODIUM 88 MCG TABLET PO SCH (06:19)
[2020-05-27] MEDS: POLYETHYLENE (MIRALAX) 17 GM PACK PO SCH ×2 (06:19→11:59)
[2020-05-27 06:38] LABS: Hematocrit (blood only) 33.3 % (42-52); Hemoglobin 11.4 g/dL (14.0-18.0); Mean Corpuscular Hemoglobin 30.8 pg (25-34); Mean Corpuscular Hgb Conc 34.2 g/dL (32-36); Mean Platelet Volume 8.8 fL (7.4-10.4); Platelet Count 147 K/uL (130-400); RDW Coefficient of Variation 13.4 % (11.5-14.5); RDW Standard Deviation 44.2 fL (36.4-46.3); White Blood Count 8.12 K/uL (4.8-10.8)
[2020-05-27 07:16] LABS: BUN Creatinine Ratio 17.1 (10-20); Calcium 8.3 mg/dl (8.5-10.1); Creatinine Clr Calc Pharmacy 88.2 ml/min; Est GFR (African American) 91.6
[2020-05-27] MEDS: METOPROLOL TARTRATE 25 MG TAB PO SCH (08:09)
[2020-05-27] MEDS: traMADol HCL 50 MG TABLET PO PRN ×2 (08:10→16:04)
[2020-05-27] MEDS: diphenhydrAMINE Capsule 25 MG CAP PO PRN ×2 (08:10→14:13)
[2020-05-27] MEDS: CHOLECALCIFEROL 1,000 UNITS 25 MCG TAB PO SCH (08:11)
[2020-05-27] MEDS: PANTOprazole 40 MG TAB PO SCH (08:11)
[2020-05-27] MEDS: SERTRALINE HCL 50 MG TABLET PO SCH (08:11)
--- NOTE | 2020-05-27 09:37 | Hospitalist Progress Note ---
Date of Service May 27, 2020 Assessment & Plan (1) Neurogenic claudication due to lumbar spinal stenosis: This is a 65-year-old male who has significant past medical history of CAD with history of stent to proximal LAD in 2004 and follows [facility] cardiology, HTN, HLD, hypothyroidism, BPH, GERD, depression who is POD#1 s/p L5-S1 decomp fusion. Status post L5-S1 decompression fusion by Dr. Mann, POD #2 Pain/wound management per orthopedic Activity, therapy and diet per orthopedics Passing flatus, however no BM yet, discussed suppository with the patient and the nursing staff Encourage incentive spirometry, weaned off oxygen Monitor H&H Acute blood loss anemia and dilutional anemia Hgb down to 11.4 (stable from 11.6 yesterday) Expected post-op Cont to monitor H&H No need for blood transfusion (2) CAD (coronary artery disease): Denies chest pain or shortness of breath Continue nebivolol, ASA, statin, ranolazine, Zetia Follows [place] [facility] cards (3) Hypertension: Blood pressure controlled Continue nebivolol (4) Dyslipidemia: Continue Crestor and Zetia (5) DVT prophylaxis: Per primary team SCD/teds Dispo: Per primary team PCP: Dr. Parish Thank you for this consultation. We will follow the patient with you during their hospital stay. You can reach a member of the [facility] Hospitalist Team 01/10 via pager @ [phone] or through [email or web address] text hospitalist role. Admission and Anticipated Discharge Date Admission Date: May 25, 2020 Subjective Patient seen in follow-up, medicine consult. s/p back surgery Patient is feeling well, walking around without difficulty Says he overdid it this morning, and then required Dilaudid He is urinating, passing gas, however no BM yet, despite several stool softeners. Discussed with him that he should try suppository now. He denies any fevers, chills, chest pain, shortness of breath, abdominal pain, nausea or vomiting. Review of Systems Review of Systems: All systems reviewed & are unremarkable except as noted in HPI & below Constitutional: no fever and no chills Respiratory: no cough and no dyspnea Cardiovascular: no chest pain and no palpitations Gastrointestinal: no abdominal pain, no nausea and no vomiting Physical Exam Physical Exam: General Appearance: WD/WN, vitals as above, NAD, pleasant, conversing easily Head: normocephalic, atraumatic Eyes: normal inspection, PERRL, EOMI, conjunctivae normal, anicteric sclerae ENT: external ear and nose normal, oropharynx normal Neck: normal visual inspection, trachea midline, no thyromegaly Respiratory: normal respiratory effort, lungs clear to auscultation, no wheeze, rales, rhonchi. No accessory muscle use Cardiovascular: regular rate, rhythm, no murmur, normal peripheral pulses, no BLE edema. Vessels: no JVD Chest: normal inspection of chest Abdomen/GI: hypoactive bowel sounds, soft but distended, nontender Extremities/Musculoskeletal: Lumbar surgical dressing c/d/i. MISSY drain visualized. No cyanosis or clubbing, extremities motor strength 5/5 Neurologic: PERRL, EOMI, no face palsy, no dysarthria, CN's II-XI intact bilaterally and moves all extremities Psychiatric: A+Ox3, euthymic affect Skin: no rashes, normal color, warm/dry Results & Data Results & Data ([facility]) Vital Signs (Past 12 Hours) Vital Signs Temp Pulse Resp BP Pulse Ox 05/27/20 07:40 37 C 59 L 16 145/74 H 95 05/26/20 22:45 36.9 C 57 L 14 150/74 H 96 Laboratory Results 05/27/20 05/27/20 Range/Units 05:54 05:54 WBC 8.12 (4.8-10.8) K/uL RBC 3.70 L (4.7-6.1) M/uL Hgb 11.4 L (14.0-18.0) g/dL Hct 33.3 L (42-52) % MCV 90.0 (80-100) fL MCH 30.8 (25-34) pg MCHC 34.2 (32-36) g/dL RDW Std Deviation 44.2 (36.4-46.3) fL RDW Coeff of [place] 13.4 (11.5-14.5) % Plt Count 147 (130-400) K/uL MPV 8.8 (7.4-10.4) fL Sodium 138 (136-145) mmol/L Potassium 4.0 (3.5-5.1) mmol/L Chloride 106 (98-107) mmol/L Carbon Dioxide 27 (21-32) mmol/L Anion Gap 5.0 (3-11) BUN 17 D (7-18) mg/dl Creatinine 0.99 (0.6-1.4) mg/dl Est Cr Clr Drug Dosing 88.2 ml/min Est GFR ( Amer) 91.6 Est GFR (Non-Af Amer) 79.0 BUN/Creatinine Ratio 17.1 (10-20) Glucose 84 (70-99) mg/dl Calcium 8.3 L (8.5-10.1) mg/dl Specimen Hemolysis Medications Administered Current Inpatient Medications Acetaminophen (Acetaminophen 500 Mg Tab) 1,000 mg PO Q8H PRN PRN Reason: MILD Pain Scale 1,2,3 & Pre PT Stop: 06/24/20 10:36 Last Admin: 05/26/20 20:25 Dose: 1,000 mg Documented by: Al Hydrox/Mg Hydrox/Simethicone (Aluminum/Magnesium Susp 30 Ml Udc) 30 ml PO Q6H PRN PRN Reason: Dyspepsia Stop: 06/24/20 10:36 Ascorbic Acid (Ascorbic Acid 500 Mg Tab) 500 mg PO [facility] Stop: 06/24/20 20:59 Last Admin: 05/26/20 20:18 Dose: 500 mg Documented by: Aspirin (Aspirin 81 Mg Ectab) 162 mg PO [facility] Stop: 06/24/20 20:59 Last Admin: 05/26/20 20:21 Dose: 162 mg Documented by: Bisacodyl (Bisacodyl 10 Mg Supp) 10 mg [place] DAILY PRN PRN Reason: Constipation Stop: 06/24/20 10:36 Diphenhydramine HCl (Diphenhydramine Capsule 25 Mg Cap) 50 mg PO Q6H PRN PRN Reason: Allergic Rhinitis/Insomnia Stop: 06/24/20 10:36 Last Admin: 05/27/20 08:10 Dose: 50 mg Documented by: Ezetimibe (Ezetimibe 10 Mg Tablet) 10 mg PO [facility] Stop: 06/24/20 20:59 Last Admin: 05/26/20 20:22 Dose: 10 mg Documented by: Famotidine (Famotidine 20 Mg Tab) 20 mg PO Q12H PRN PRN Reason: Dyspepsia Stop: 06/24/20 10:36 Fluticasone Propionate (Fluticasone Propionate Na Spr 16 Gm Btl) 2 sprays NA DAILY PRN PRN Reason: Nasal Congestion Stop: 06/24/20 10:36 Hydromorphone HCl (Hydromorphone Inj 0.5 Mg/0.5 Ml Syr) 0.5 mg IV Q3H PRN PRN Reason: MOD pain (scale 4-6) & Pre PT Stop: 06/08/20 10:36 Last Admin: 05/26/20 10:39 Dose: 0.5 mg Documented by: Hydromorphone HCl (Hydromorphone Inj 1 Mg/Ml Syringe) 1 mg IV Q3H PRN PRN Reason: severe pain (scale 7-10) Stop: 06/08/20 10:36 Last Admin: 05/26/20 17:42 Dose: 1 mg Documented by: Hydroxyzine HCl (Hydroxyzine Hcl 25 Mg Tab) 25 mg PO Q8H PRN PRN Reason: Anxiety Stop: 06/24/20 10:36 Lorazepam (Ativan) 0.5 mg in 1 mls @ 0.5 mls/min IV Q8H PRN PRN Reason: Sedation/Anxiety Stop: 06/24/20 10:36 Promethazine HCl 12.5 mg/ (Sodium Chloride) 50.5 mls @ 204 mls/hr IV Q6H PRN PRN Reason: Nausea &/or Vomiting Stop: 06/24/20 10:36 Influenza Virus Vaccine Quadrival (Do Not Administer Flu Vaccine) 1 ea N/A PRN PRN PRN Reason: Notification Stop: 06/24/20 10:36 Levothyroxine Sodium (Levothyroxine Sodium 88 Mcg Tablet) [facility] Stop: 06/25/20 06:29 Last Admin: 05/27/20 06:19 Dose: 88 mcg Documented by: Lorazepam (Lorazepam 0.5 Mg Tab) 0.5 mg PO Q8H PRN PRN Reason: Sedation/Anxiety Stop: 06/24/20 10:36 Magnesium Hydroxide (Magnesium Hydroxide Susp 30 Ml Udc) 30 ml PO DAILY PRN PRN Reason: Constipation Stop: 06/24/20 10:36 Melatonin (Melatonin 3 Mg Tab) 3 mg PO HS [facility] Stop: 06/24/20 20:59 Last Admin: 05/26/20 20:22 Dose: Not Given Documented by: Metoclopramide HCl (Metoclopramide Hcl Inj 5 Mg/Ml 2 Ml Vial) 10 mg IV Q6H PRN PRN Reason: Nausea &/or Vomiting Stop: 06/24/20 10:36 Metoprolol Tartrate (Metoprolol Tartrate 25 Mg Tab) 50 mg PO BID [facility]; Protocol Stop: 06/24/20 20:59 Last Admin: 05/27/20 08:09 Dose: Not Given Documented by: Naloxone HCl (Naloxone Hcl 0.4 Mg/1 Ml Vial/Carp) 0.1 mg IV Q5M PRN; Protocol PRN Reason: Oversedation/Resp Depression Stop: 06/24/20 10:36 Nitroglycerin (Nitroglycerin Sl 0.4 Mg/Tab Tab) 0.4 mg SL Q5M PRN PRN Reason: chest pain Stop: 06/24/20 10:36 Ondansetron HCl (Ondansetron Inj 2 Mg/Ml 2 Ml Vial) 4 mg IV Q6H PRN PRN Reason: Nausea &/or Vomiting Stop: 06/24/20 10:36 Ondansetron HCl (Ondansetron 4 Mg Od Tab) 4 mg PO Q6H PRN PRN Reason: Nausea Stop: 06/24/20 10:36 Pantoprazole Sodium (Pantoprazole 40 Mg Tab) 40 mg PO QAM [facility]; Protocol Stop: 06/25/20 08:59 Last Admin: 05/27/20 08:11 Dose: 40 mg Documented by: Pneumococcal Polyvalent Vaccine (Do Not Administer Pneumococcal Vaccine) 1 ea N/A PRN PRN PRN Reason: Notification Stop: 06/24/20 10:36 Polyethylene Glycol (Polyethylene (Miralax) 17 Gm Pack) 17 gm PO Q6 [facility] Stop: 06/25/20 05:59 Last Admin: 05/27/20 06:19 Dose: 17 gm Documented by: Ranolazine (Ranolazine 500 Mg Er Tab) 2,000 mg PO [facility] Stop: 06/24/20 20:59 Last Admin: 05/26/20 20:19 Dose: 2,000 mg Documented by: Rosuvastatin Calcium (Rosuvastatin Calcium 20 Mg Tab) 40 mg PO HS [facility] Stop: 06/24/20 20:59 Last Admin: 05/26/20 20:19 Dose: 40 mg Documented by: Senna/Docusate Sodium (Docusate Sodium/Senna 50/8.6mg Tab) 2 tab PO HS [facility] Stop: 06/24/20 20:59 Last Admin: 05/26/20 20:18 Dose: 2 tab Documented by: Sertraline HCl (Sertraline Hcl 50 Mg Tablet) 50 mg PO QAM [facility] Stop: 06/25/20 08:59 Last Admin: 05/27/20 08:11 Dose: 50 mg Documented by: Sodium Biphosphate/Sodium Phosphate (Sod Phosphate/Sod Biphosphate Enema 132 Ml Btl) 132 ml [place] ONE PRN PRN Reason: Constipation Stop: 06/24/20 10:36 Tramadol HCl (Tramadol Hcl 50 Mg Tablet) 50 - 100 mg PO Q4H PRN PRN Reason: Moderate-Severe Pain & Pre PT Stop: 06/24/20 10:36 Last Admin: 05/27/20 08:10 Dose: 100 mg Documented by: Vitamin B Complex (Vitamin B Complex Tab) 1 tab PO HS [facility] Stop: 06/24/20 20:59 Last Admin: 05/26/20 20:21 Dose: 1 tab Documented by: Vitamin D (Cholecalciferol 1,000 Units 25 Mcg Tab) 1,000 units PO QAM [facility] Stop: 06/25/20 08:59 Last Admin: 05/27/20 08:11 Dose: 1,000 units Documented by: Zolpidem Tartrate (Zolpidem Tartrate 10 Mg Tab) 10 mg PO HS PRN PRN Reason: sleep Stop: 06/24/20 10:36 Last Admin: 05/26/20 22:49 Dose: 10 mg Documented by:
[2020-05-27] MEDS: ACETAMINOPHEN 500 MG TAB PO PRN (09:44)
[2020-05-27] MEDS: HYDROmorphone INJ 1 MG/ML SYRINGE IV PRN (11:08)
--- NOTE | 2020-05-27 15:00 | Discharge Summary ---
Date of Service May 27, 2020 Principal Diagnosis Lumbar spinal stenosis with neurogenic claudication Discharge Data Allergies Allergy/AdvReac Type Severity Reaction Status Date / Time hydrocodone Allergy Verified 05/25/20 06:37 acetaminophen [From Percocet] AdvReac Verified 05/25/20 06:37 oxycodone [From Percocet] AdvReac Verified 05/25/20 06:37 LORCET Allergy Mild Itching Uncoded 05/25/20 06:37 Consultations 05/25/20 10:37 Consult Hospitalist Routine Procedures Performed Operation Date: 05/25/20 07:45 Actual Procedures p L5-S1 Decompression and Fusion, Spinal Cord Monitoring - Ramone Mann DO Ordered Studies 05/25/20 07:45 FL fluoroscopy <1hr Routine FL lumbar spine 2-3V Routine Hospital Course (1) Neurogenic claudication due to lumbar spinal stenosis: Patient with lumbar decompression fusion tolerated so was taken to orthopedic for postoperative. Postop day 1 is up and ambulating leg pain impr bryant progressed to postop day #2 MISSY drain decreasing appropriately. Pain well controlled. Excellent strength testing. Subsequent discharge home. Discharge orders and instructions were on the chart for further review. Total Time Total Time Spent Total Time Spent (In Minutes): 20 minutes Discharge Plan Discharge Items Patient Disposition: Home - Self-Care Reason For Visit: Spinal Stenosis, Lumbar Region with Neurogenic Cla Discharge Diagnosis: Lumbar spinal stenosis with neurogenic claudication Activity: As commented below Non-emergency contact: Primary Care Provider Call non-emergency contact if: you have any medication questions Follow-up/Referrals: Moise Parish MD [Primary Care Provider] - Diet: Regular Addtl Attending Provider Instructions: ACTIVITY RECOMMENDATIONS: SELF CARE INSTRUCTIONS AFTER THORACIC/LUMBAR FUSIONS 1. You may walk to your tolerance. It is good exercise for your legs and back. Expect some back and intermittent leg aches and pains. 2. You may perform "counter-top" level activities (make a sandwich, asia with a project, etc.). 3. No bending or lifting of more than 10 pounds or back twisting of any nature (roll like a log when turning in bed). 4. You may ride in a car for 20-30 minutes at a time. No driving until after your first visit with your doctor. 5. Frequent changes of position and restricting sitting to 30 minutes at a time will help limit the amount of back spasms and stiffness you may experience. 6. You may discontinue the use of ambulatory aids (cane, crutches, etc.) once your strength and confidence allow. 7. You may business planning manager the shower and let water strike your incision when you arrive home at least once daily. Do not take a tub bath, sit in a hot tub or go into a swimming pool until after your first recheck in the office. SPECIAL CARE INSTRUCTIONS: VERY IMPORTANT TO READ AND REVIEW A. Your surgical incision has been closed with a cosmetic suture under the skin that will dissolve in about 6 weeks. In 14 days, you can use a pair of clean scissors and cut the suture that is left outside of the skin at the ends of your incision. 1. The small skin tapes can be removed 7 days after surgery if they have not fallen off by that point. 2. You may keep the wound open to air as much as possible to promote healing after post-op day number 5 unless told otherwise by your doctor. 3. If you think the wound looks like it is becoming infected (redness or worsening drainage) and/or you are experiencing fever, chill or worsening back pain and muscle spasms, contact the office so that we may evaluate you as soon as possible. B. Complications are uncommon, but please contact us if you have any signs or symptoms of: 1. wound infection (fever higher than 102.5 degrees F, redness, separation of wound, drainage, or increasing pain from the incision) 2. blood clots in legs (pain, swelling, redness and warmth in legs) 3. urinary tract infection (fever higher than 102.5 degrees F, burning upon urination or increased frequency of urination) 4. nerve problems (inability to walk on your toes or heels, numbness, loss of bowel or bladder control) 5. any other symptoms that concern you C. Please call the office at if you have any concerns or questions about your operation or recovery. D. No smoking! Smoking drastically decreases the chance of a solid fusion. E. Do not take any anti-inflammatory medications (Indocin, Advil, Motrin, Aspirin, Naprosyn, etc.) as these may inhibit the chance of a solid fusion. Tylenol is okay to take for pain. MANAGING PAIN AFTER SPINAL SURGERY 1. Narcotic medication is intended for short-term use and will be provided for surgical pain. Surgical pain usually lasts for a period of 4-6 weeks. Narcotic medication includes Percocet, Vicodin, Darvocet, Tylenol #3 or Lortab. 2. Longer-term pain is more appropriately treated with non-narcotic medication such as Tylenol ES. 3. Muscle spasm is not appropriately treated with narcotics. Muscle relaxers such as Soma, Flexeril or Skelaxin can be used along with Tylenol ES. 4. Remember that we all live with some "aches and pains". This is not unusual or uncommon after an injury or as we get older. a. Back pain is expected and may include muscle spasms for 4 to 6 weeks after surgery. The pain should gradually improve. If the pain worsens for no apparent reason, please contact the office. b. Intermittent leg pain may also be experienced and should not be concerned about unless it worsens for no apparent reason. If so, please contact the office. 5. We will provide appropriate medication within the normal guidelines of their prescribed use. We will also be very cautious and aware of potential abuse and extended duration of patients' medication needs. a. Pain medications are for your comfort and to assist with sleep and rest so that the tissue can heal. They are not provided in order to return to normal activity and should not be used through the day. To do so or worsening pain at night can result from ongoing tissue damage and development of tolerance to the prescribed medicine. 6. Please allow 2-3 days to process refills. Prescriptions will not be mailed but must be picked up at the office. FOLLOW UP VISIT: Keep your scheduled follow-up appointment. Any questions, please call the office at . Pending Studies at Discharge: No Stand-Alone Forms: My [employer], Smoking Cessation Medications and DC Order Prescriptions: New tramadol 50 mg tablet 50 mg PO Q6H PRN (Reason: pain, moderate) Qty: 30 RF: 0 hydromorphone [Dilaudid] 2 mg tablet 2 mg PO Q6H PRN (Reason: pain) Qty: 20 RF: 0 Continued nitroglycerin 0.4 mg tablet, sublingual 0.4 mg SL Q5M PRN (Reason: chest pain) Qty: 25 RF: 0 sertraline 50 mg tablet 50 mg PO QAM RF: 0 cyclobenzaprine 10 mg tablet 10 mg PO Q12H PRN (Reason: muscle spasm) RF: 0 zolpidem 10 mg tablet 10 mg PO HS PRN (Reason: sleep) RF: 0 hydrocodone-acetaminophen 5-300 mg Tablet 1 tab PO Q6H PRN (Reason: Pain) RF: 0 aspirin [Adult Low Dose Aspirin] 81 mg tablet,delayed release (DR/EC) 162 mg PO HS RF: 0 cholecalciferol (vitamin D3) 1,000 unit capsule 1,000 units PO QAM RF: 0 B-complex with vitamin C capsule 1 cap PO HS RF: 0 ezetimibe [Zetia] 10 mg tablet 10 mg PO HS RF: 0 levothyroxine 88 mcg capsule 88 mcg PO QAM RF: 0 multivitamin [Multiple Vitamins] tablet 1 tab PO HS RF: 0 rosuvastatin [Crestor] 40 mg tablet 40 mg PO HS RF: 0 ranolazine 1,000 mg tablet extended release 12 hr 2,000 mg PO HS RF: 0 Bystolic 10 mg tablet 10 mg PO HS RF: 0 omeprazole 20 mg tablet,delayed release (DR/EC) 20 mg PO QAM RF: 0 fluticasone propionate 50 mcg/actuation [place],Suspension 2 spray INTRANASAL DAILY PRN (Reason: Nasal Congestion) RF: 0 tramadol 50 mg Tablet 100 mg PO Q6H PRN (Reason: Pain) RF: 0 melatonin 3 mg Tablet 3 mg PO HS RF: 0 Discharge Orders: Discharge Order (Routine); Ordered 05/27/20 Ordered By: Ramone Mann Admission Data Admit Date/Time: 05/25/20 09:55 Attending Provider: Ramone Mann Admit Provider: Ramone Mann Primary Care Provider: Moise Parish Other Providers: Uriah Rodriguez
== END 2020-05-27 16:50 | disposition home or self-care (01) | DRG 454 ==
LOC: ASU 06:15 → 3N 09:55

== ENCOUNTER 2023-02-02 10:57 | Inpatient (IN) ==
--- OUTSIDE RECORDS SUMMARY | 2023-02-02 11:02 | External Medical Summary | Summary of Care ---
Author Name Unknown Organization [facility] Address [address] [place] [address] Phone [phone] Care Team Providers Care Claim Review Medical Director Name Role Phone Moise Parish MD Primary Care Provider [phone] [phone] Reason for Visit * Reason Onset Date Comments Appointment 11/23/2022 Encounter Details Date Type Department Care Team Description 11/23/2022 Telephone Gastroenterology, [facility] [address] [facility] [place] [id number] Specified, Zz No Resource [address], [place] [id number] Appointment Allergies Active Allergy Reactions Severity Noted Date Comments Acetaminophen 01/31/2022 Bee Venom Rash Medium 03/26/2012 Honeybees Honey Bee Venom Anaphylaxis High 04/11/2021 Hydrocodone 01/31/2022 Hydrocodone-Acetaminophen 01/31/2022 Other reaction(s): Dermatological problems, e.g., rash, hives Propoxyphene N-Acetaminophen Hives 12/28/2009 Oxycodone Medium 12/08/2019 Other reaction(s): Itching, Skin irritation documented as of this encounter (statuses as of 12/04/2022) Medications Medication Sig Dispensed Refills Start Date End Date Status ASPIRIN 81 MG PO TABS 1 daily 0 Active DAILY MULTIVITAMIN PO TABS 1 daily 0 Active Cholecalciferol (VITAMIN D) 1000 UNIT Capsule Take 1,000 Units by mouth daily. 0 Active nitroglycerin (NITROSTAT) 0.[address] 1 Tab under the tongue as needed for Pain, Chest. May repeat 3 times. If chest pain continues, call 911. 75 Tab 3 01/20/2019 Active Additional Information Patient not taking.Reported on 02/05/2022 EPINEPHrine, anaphylaxis, (EPI-PEN) 0.3 MG/0.3ML SOAJ injectionIndication s:Bee sting allergy For a severe reaction: Place orange end against the outer thigh, press firmly, hold in place for 10 seconds and go to the Emergency room. 2 Each 3 07/08/2019 Active betamethasone dipropionate (DIPROSONE) 0.05 % creamIndications:Se borrheic dermatitis Apply topically to affected area 2 times a day. To affected area. 90 g 3 07/07/2019 Active terbinafine (LAMISIL AT) 1 % creamIndications:Ti gina cruris Apply topically to affected area 2 times a day. To affected area. 12 g 0 07/10/2019 Active metroNIDAZOLE, topical, (METROCREAM) 0.75 % creamIndications:De rmatitis Apply topically to affected area 2 times a day. apply to affected area. 45 g 2 07/07/2019 Active triamcinolone acetonide (ARISTOCORT) 0.1 % lotionIndications:D ermatitis Apply topically to affected area 2 times a day. Apply to scalp daily as needed 60 mL 3 07/07/2019 Active traMADol HCl 100 MG Oral TabletIndications:L umbar back pain Take 100 mg by mouth every 6 hours as needed for Pain, Moderate or Pain, Severe. 90 Tab 3 01/18/2020 Active Olopatadine HCl 0.2 % Ophthalmic Solution (Pataday) Instill 1 Drop into eye daily. 7.5 mL 3 08/12/2020 Active Celecoxib 100 MG Oral Capsule (CeleBREX) Take 1 Capsule (100 mg) by mouth in the morning. 0 Active Ibuprofen 600 MG Oral Tablet (Motrin) Take 1 Tablet (600 mg) by mouth every 6 hours as needed. 0 Active Fluticasone Propionate 50 MCG/ACT Nasal Suspension (Flonase)Indication s:Seasonal allergic rhinitis due to pollen Administer 2 Sprays into each nostril in the morning. 16 g 0 05/29/2022 Active Zolpidem Tartrate 10 MG Oral Tablet (Ambien)Indications :Persistent insomnia Take 1 Tablet by mouth at bedtime as needed for Sleep. 15 Tablet 0 05/29/2022 Active Loratadine 10 MG Oral CapsuleIndications: Allergic rhinitis due to pollen Take 1 Capsule by mouth in the morning. 90 Capsule 3 08/25/2022 Active Ezetimibe 10 MG Oral Tablet (Zetia)Indications: Atherosclerosis of [place] coronary artery of [place] heart without angina pectoris Take 1 Tablet by mouth in the morning. In the morning.. 30 Tablet 0 08/25/2022 Active Levothyroxine Sodium 88 MCG Oral Tablet (Levoxyl)Indication s:Atherosclerosis of [place] coronary artery of [place] heart without angina pectoris,Hypothyroi dism, acquired Take 1 Tablet by mouth daily first thing in the morning. (at least 30 min prior to breakfast or other meds) 90 Tablet 3 08/25/2022 Active Sertraline HCl 50 MG Oral Tablet (Zoloft) Take 1 Tablet by mouth in the morning. 90 Tablet 3 08/27/2022 Active Nebivolol HCl 10 MG Oral Tablet (Bystolic)Indicatio ns:Atherosclerosis of [place] coronary artery of [place] heart without angina pectoris Take 1 Tablet by mouth in the morning. 90 Tablet 3 08/27/2022 Active Rosuvastatin Calcium 40 MG Oral Tablet (Crestor)Indication s:Atherosclerosis of [place] coronary artery of [place] heart without angina pectoris Take 1 Tablet by mouth in the morning. In the morning.. 30 Tablet 0 09/25/2022 Active Ranolazine ER 1000 MG Oral Tablet Extended Release 12 HourIndications:Ath erosclerosis of [place] coronary artery of [place] heart without angina pectoris Take 1 Tablet by mouth in the morning and 1 Tablet before bedtime. 60 Tablet 0 09/25/2022 Active documented as of this encounter (statuses as of 12/04/2022) Active Problems Problem Noted Date Alcoholism in recovery 12/12/2021 IPMN (intraductal papillary mucinous mak plasm) 11/09/2020 Arthritis of carpometacarpal (CMC) joint s of both thumbs 01/06/2020 Spinal stenosis of lumbar region with ne urogenic claudication 12/29/2019 Rosacea 04/30/2018 Recurrent major depressive disorder, in full remission 01/01/2018 Seasonal allergic rhinitis due to pollen 01/01/2018 Persistent insomnia 12/27/2016 HTN, goal below 130/80 01/06/2016 Coronary artery disease invo lving [place] coronary artery of [place] heart without angina pectoris 11/09/2015 Gastroesophageal reflux disease with eso phagitis 01/06/2015 Obesity, Class I, BMI 30.0-34.9 (see act ual BMI) 01/06/2015 S/P angioplasty with stent 01/06/2015 Primary osteoarthritis involving multipl e joints 01/06/2015 Hypothyroidism, acquired 10/04/2014 Hyperuricuria 03/26/2012 Dyslipidemia 12/28/2009 BPH with obstruction/lower urinary tract symptoms 12/28/2009 documented as of this encounter (statuses as of 12/04/2022) Resolved Problems Problem Noted Date Resolved Date Chronic bilateral low back pain without sciatica 11/09/2015 01/01/2018 Epigastric pain 11/09/2015 12/27/2016 Diarrhea 11/09/2015 12/27/2016 Ganglion cyst 11/09/2015 07/01/2017 Overview: 1st carpal/metacarpal joint at base of left thumb Tick bite 11/09/2015 12/27/2016 Overview: Questionable - Early October Atherosclerosis of [place] co ronary artery without angina pectoris 01/06/2015 11/09/2015 Primary osteoarthritis of fi rst carpometacarpal joint of one hand 01/06/2015 01/06/2015 Elevated prostate specific antigen (PSA) 015 09/15/2019 Adjustment disorder with depressed mood 01/07/20 15 01/01/2018 Family history of thyroid disease 08/31/2014 01/06/2015 Onychomycosis 11/24/2012 01/06/2015 Low back pain 03/26/2012 11/09/2015 Bee sting allergy 03/26/2012 04/30/2018 MEDICATION USE AGREEMENT 03/26/2012 015 Overview: Signed here 03/26/12 Chronic narcotic use 03/26/2012 10/22/2013 Overview: Intermittant use Hearing loss 03/26/2012 01/06/2015 Right kidney stone 09/21/2011 03/26/2012 Overweight (BMI 25.0-29.9) 08/01/201101/06 Obesity, Class I, BMI 30.0-34.9 (see actual BMI) 03/30/2011 08/01/2011 Osteoarthritis 03/30/2011 01/06/2015 Tinea cruris 03/30/2011 03/26/2012 Lumbar spine strain 03/30/2011 03/26/2012 Seborrheic dermatitis 03/30/2011 01/06/2015 Lumbar spine pain 03/29/2011 03/26/2012 TEAR OF ARTICULAR CARTILEGE LEFT KNEE 09/06/2010 03/26/2012 TEAR LATERAL MENISCUS OF LEFT KNEE 08/14/2010 09/06/2010 GOUT 05/15/2010 01/06/2015 Lipoma 05/15/2010 03/26/2012 Overview: ICD-10 update of inactive term SLEEP APNEA 12/28/2009 03/26/2012 PPD POSITIVE 199412/28/2009 03/26/2012 CAD S/P STENTING 12/28/2009 01/06/2015 URETERAL CALCULI IN PAST 12/28/2009 013 UMBILICAL HERNIA S/P REPAIR 200212/28/2009 03/26/2012 TINEA CORPORIS 12/21/2009 03/26/2012 Esophageal reflux 07/01/2009 01/06/2015 Floaters 07/01/2009 03/26/2012 TINNITUS 07/01/2009 04/30/2018 documented as of this encounter (statuses as of 12/04/2022) Immunizations Name Administration Dates Next Due PPD 03/11/1994 Pneumococcal Conjugate Vacc, 13 Valent (Prevnar) 09/15/2019 Pneumococcal Polysaccharide PPV23 (Pneumovax) 03/30/2011 Season Influenza, Quad, PF, Adjuvanted, 65+ Yrs, IM (FLUAD) 12/29/2019 Seasonal Influenza, PF, 6 mo ns & Above, IM , (Flulaval) 12/27/2016 Seasonal Influenza, Quadriva lent, No Preserve, IM 02/28/2021,01/22/2018,02/15/2015 Seasonal Influenza, Split, I IV3, With Preserve, Inj 12/23/2015,11/01/2014,01/09/2014,11/24,12/05/2011,12/09/2010,12/27/2009 ,12/09/2006,12/09/2005,01/09/2005 TDAP (age 11 and older)(Adacel) 03/30/2011 Varicella Zoster Vaccine (Adult) 11/01/2014 documented as of this encounter Social History Tobacco Use Types Packs/Day Years Used Date Smoking Tobacco: Never Smokeless Tobacco: Never Alcohol Use Standard Drinks/Week Comments Yes 0 (1 standard drink = 0.6 oz pur e alcohol) daily Food Insecurity Answer Date Recorded Within the past 12 months, y ou worried that your food would run out before you got money to buy more. Never true 01/07/2019 Within the past 12 months, t he food you bought just didn't last and you didn't have money to get more. Never true 01/07/2019 Sex Assigned at Date Recorded Not on file Job Start Date Occupation Industry Not on file Not on file Not on file documented as of this encounter Miscellaneous Notes * Telephone Encounter - LEXUS Patel - 12/04/2022 12:46 PM EDT Pt returned call, appt scheduled on 03/27 * Telephone Encounter - LEXUS Patel - 11/30/2022 12:11 PM EDT Letter sent * Telephone Encounter - LEXUS Patel - 11/29/2022 10:49 AM EDT LMOM for pt to call back to schedule * Telephone Encounter - LEXUS Paul - 11/23/2022 3:52 PM EDT Records scanned, referral is for pancreatic cyst. * Telephone Encounter - Whit Cavanaugh - 11/23/2022 2:11 PM EDT [facility]. (Consult) DX:Abnormal finds on Diagnostic Imaging of other parts of [place] (ICD-CM- R93.3) Referring provider: Jf Melvin LMDEWEY 11/23/22 Records were placed into scans on 11/23/22 documented in this encounter Plan of Treatment Upcoming Encounters Date Type Specialty Care Team Description 03/27/2023 Office Visit Gastroenterology Cheyanne Mcginnis CRNP [address] [place] [id number] Scheduled Procedures Name Priority Associated Diagnoses Date/Ti me COLONOSCOPY FLEXIBLE PROXIMA L DIAGNOSTIC Recall History of colonic polyps Family history of colon cancer Health Maintenance Due Date Last Done Comments COVID-19 Vaccine (#1) 1955 Albumin/Creatinine Ratio 02/09/1972 Pneumococcal Vaccine: 65+ Years (3 - PPSV23 or PCV20) 09/14/2020 09/15/2019, 03/30/2011 Depression Screening 12/28/2020 12/29/2019 DTaP,Tdap,and Td Vaccines (2 - Td or Tdap) 03/30/2021 03/30/2011 TSH 06/21/2022 06/21/2021, 1208/2020, 12/29/2019, Additional history exists Influenza Vaccine (FLU shot) (#1) 2022 02/28/2021, 12/29/2019, 01/22/2018, Additional history exists GFR 12/12/2022 12/12/2021, 10/09, 12/29/2019, Additional history exists Diabetes Screening 12/12/2024 12/12/2021, 0 10/25/2020, 12/29/2019, Additional history exists COLONOSCOPY-EVERY 5 YRS AGES 18-100 02/07/2027 02/07/2022, 02/07/2022, 08/08/2016, Additional history exists Zoster Vaccines Completed 07/19/2021, 03/2021, 11/01/2014 Colonoscopy Discontinued 02/07/2022, 01/11, 08/08/2016, Additional history exists Colorectal Cancer Screening Discontinued Cologuard Discontinued Fecal Occult Blood Test Discontinued GARDASIL-HPV IMMUNIZATION SERIES Aged Out No longer eligible based on patient's age to complete this topic Hepatitis B Aged Out No longer eligi ble based on patient's age to complete this topic MENINGOCOCCAL (MENACTRA/MENVEO) Aged Out No longer eligible based on patient's age to complete this topic Sigmoidoscopy Discontinued documented as of this encounter Medical Devices Not on filedocumented as of this encounter Care Teams Claim Review Medical Director Relationship Specialty Start Date End Date Moise Parish MD [address] [place] [id number] PCP - General Family Medicine 01/07/19 documented as of this encounter
--- OUTSIDE RECORDS SUMMARY | 2023-02-02 11:02 | External Medical Summary | Summary of Care ---
Author Name Unknown Organization [facility] Address [address] [place] [address] Phone [phone] Care Team Providers Care Bunghole Borer Name Role Phone Moise Parish MD Primary Care Provider [phone] [phone] Reason for Visit * Reason Onset Date Comments Appointment 11/23/2022 Encounter Details Date Type Department Care Team Description 11/23/2022 Telephone Gastroenterology, [facility] [address] [facility] [place] [id number] Specified, Zz No Resource [address] [place], [place] [id number] Appointment Allergies Active Allergy Reactions Severity Noted Date Comments Acetaminophen 01/31/2022 Bee Venom Rash Medium 03/26/2012 Honeybees Honey Bee Venom Anaphylaxis High 04/11/2021 Hydrocodone 01/31/2022 Hydrocodone-Acetaminophen 01/31/2022 Other reaction(s): Dermatological problems, e.g., rash, hives Propoxyphene N-Acetaminophen Hives 12/28/2009 Oxycodone Medium 12/08/2019 Other reaction(s): Itching, Skin irritation documented as of this encounter (statuses as of 11/29/2022) Medications Medication Sig Dispensed Refills Start Date [...] 10 MG Oral Tablet (Zetia)Indications: Atherosclerosis of [place] coronary artery of [place] heart without angina pectoris Take 1 Tablet by mouth in the morning. In the morning.. 30 Tablet 0 08/25/2022 Active Levothyroxine Sodium 88 MCG Oral Tablet (Levoxyl)Indication s:Atherosclerosis of [place] coronary artery of [place] heart without angina pectoris,Hypothyroi dism, acquired Take 1 Tablet by mouth daily first thing in the morning. (at least 30 min prior to breakfast or other meds) 90 Tablet 3 08/25/2022 Active Sertraline HCl 50 MG Oral Tablet (Zoloft) Take 1 Tablet by mouth in the morning. 90 Tablet 3 08/27/2022 Active Nebivolol HCl 10 MG Oral Tablet (Bystolic)Indicatio ns:Atherosclerosis of [place] coronary artery of [place] heart without angina pectoris Take 1 Tablet by mouth in the morning. 90 Tablet 3 08/27/2022 Active Rosuvastatin Calcium 40 MG Oral Tablet (Crestor)Indication s:Atherosclerosis of [place] coronary artery of [place] heart without angina pectoris Take 1 Tablet by mouth in the morning. In the morning.. 30 Tablet 0 09/25/2022 Active Ranolazine ER 1000 MG Oral Tablet Extended Release 12 HourIndications:Ath erosclerosis of [place] coronary artery of [place] heart without angina pectoris Take 1 Tablet by mouth in the morning and 1 Tablet before bedtime. 60 Tablet 0 09/25/2022 Active documented as of this encounter (statuses as of 11/29/2022) Active Problems Problem Noted Date Alcoholism in [...] 130/80 01/06/2016 Coronary artery disease invo lving [place] coronary artery of [place] heart without angina pectoris 11/09/2015 Gastroesophageal reflux disease with eso phagitis 01/06/2015 Obesity, Class I, BMI 30.0-34.9 (see act ual BMI) 01/06/2015 S/P angioplasty with stent 01/06/2015 Primary osteoarthritis involving multipl e joints 01/06/2015 Hypothyroidism, acquired 10/04/2014 Hyperuricuria 03/26/2012 Dyslipidemia 12/28/2009 BPH with obstruction/lower urinary tract symptoms 12/28/2009 documented as of this encounter (statuses as of 11/29/2022) Resolved Problems Problem Noted Date Resolved Date Chronic bilateral low back pain without sciatica 11/09/2015 01/01/2018 Epigastric pain 11/09/2015 12/27/2016 Diarrhea 11/09/2015 12/27/2016 Ganglion cyst 11/09/2015 07/01/2017 Overview: 1st carpal/metacarpal joint at base of left thumb Tick bite 11/09/2015 12/27/2016 Overview: Questionable - Early October Atherosclerosis of [place] co ronary artery without angina pectoris 01/06/2015 [...] as of this encounter (statuses as of 11/29/2022) Immunizations Name Administration Dates Next Due PPD [...] 2:11 PM EDT Referral received from the [facility] to get patient scheduled for an appointment. (Consult) DX:Abnormal finds on Diagnostic Imaging of other parts of [place] (ICD-CM- R93.3) Referring provider: Jf Melvin 11/23/22 Records were placed into scans on 11/23/22 documented in this encounter Plan of Treatment Scheduled Procedures Name Priority Associated Diagnoses Date/Ti [...] or Tdap) 03/30/2021 03/30/2011 TSH 06/21/2022 06/21/2021, 12/08/2020, 12/29/2019, Additional history exists Influenza Vaccine (FLU [...] filedocumented as of this encounter Care Teams Bunghole Borer Relationship Specialty Start Date End Date Moise Parish MD [address] [place] [id number] PCP - General Family Medicine 01/07/19 documented as of this encounter
--- OUTSIDE RECORDS SUMMARY | 2023-02-02 11:02 | External Medical Summary | Summary of Care ---
Author Name Unknown Organization [facility] Address [address] [place] [address] Phone [phone] Care Team Providers Care Events Associate Name Role Phone Moise Parish MD Primary Care Provider [phone] [phone] Reason for Visit * Reason Onset Date Comments Appointment 11/23/2022 Encounter Details Date Type Department Care Team Description 11/23/2022 Telephone Gastroenterology, [facility] [address] [facility] [place] [id number] Specified, Zz No Resource [address] [place], [place] [phone] Appointment Allergies Active Allergy Reactions Severity Noted Date Comments Acetaminophen 01/31/2022 Bee Venom Rash Medium 03/26/2012 Honeybees Honey Bee Venom Anaphylaxis High 04/11/2021 Hydrocodone 01/31/2022 Hydrocodone-Acetaminophen 01/31/2022 Other reaction(s): Dermatological problems, e.g., rash, hives Propoxyphene N-Acetaminophen Hives 12/28/2009 Oxycodone Medium 12/08/2019 Other reaction(s): Itching, Skin irritation documented as of this encounter (statuses as of 11/23/2022) Medications Medication Sig Dispensed Refills Start Date [...] 10 MG Oral Tablet (Zetia)Indications: Atherosclerosis of [place] coronary artery of [place] heart without angina pectoris Take 1 Tablet by mouth in the morning. In the morning.. 30 Tablet 0 08/25/2022 Active Levothyroxine Sodium 88 MCG Oral Tablet (Levoxyl)Indication s:Atherosclerosis of [place] coronary artery of [place] heart without angina pectoris,Hypothyroi dism, acquired Take 1 Tablet by mouth daily first thing in the morning. (at least 30 min prior to breakfast or other meds) 90 Tablet 3 08/25/2022 Active Sertraline HCl 50 MG Oral Tablet (Zoloft) Take 1 Tablet by mouth in the morning. 90 Tablet 3 08/27/2022 Active Nebivolol HCl 10 MG Oral Tablet (Bystolic)Indicatio ns:Atherosclerosis of [place] coronary artery of [place] heart without angina pectoris Take 1 Tablet by mouth in the morning. 90 Tablet 3 08/27/2022 Active Rosuvastatin Calcium 40 MG Oral Tablet (Crestor)Indication s:Atherosclerosis of [place] coronary artery of [place] heart without angina pectoris Take 1 Tablet by mouth in the morning. In the morning.. 30 Tablet 0 09/25/2022 Active Ranolazine ER 1000 MG Oral Tablet Extended Release 12 HourIndications:Ath erosclerosis of [place] coronary artery of [place] heart without angina pectoris Take 1 Tablet by mouth in the morning and 1 Tablet before bedtime. 60 Tablet 0 09/25/2022 Active documented as of this encounter (statuses as of 11/23/2022) Active Problems Problem Noted Date Alcoholism in [...] 130/80 01/06/2016 Coronary artery disease invo lving [place] coronary artery of [place] heart without angina pectoris 11/09/2015 Gastroesophageal reflux disease with eso phagitis 01/06/2015 Obesity, Class I, BMI 30.0-34.9 (see act ual BMI) 01/06/2015 S/P angioplasty with stent 01/06/2015 Primary osteoarthritis involving multipl e joints 01/06/2015 Hypothyroidism, acquired 10/04/2014 Hyperuricuria 03/26/2012 Dyslipidemia 12/28/2009 BPH with obstruction/lower urinary tract symptoms 12/28/2009 documented as of this encounter (statuses as of 11/23/2022) Resolved Problems Problem Noted Date Resolved Date Chronic bilateral low back pain without sciatica 11/09/2015 01/01/2018 Epigastric pain 11/09/2015 12/27/2016 Diarrhea 11/09/2015 12/27/2016 Ganglion cyst 11/09/2015 07/01/2017 Overview: 1st carpal/metacarpal joint at base of left thumb Tick bite 11/09/2015 12/27/2016 Overview: Questionable - Early October Atherosclerosis of [place] co ronary artery without angina pectoris 01/06/2015 [...] as of this encounter (statuses as of 11/23/2022) Immunizations Name Administration Dates Next Due PPD [...] Miscellaneous Notes * Telephone Encounter - LEXUS Paul - [...] or Tdap) 03/30/2021 03/30/2011 TSH 06/21/2022 06/21/2021, 12/0 08/2020, 12/29/2019, Additional history exists Influenza Vaccine (FLU [...] filedocumented as of this encounter Care Teams Events Associate Relationship Specialty Start Date End Date Moise Parihs MD [address] [place] [id number] PCP - General Family Medicine 01/07/19 documented as of this encounter
--- OUTSIDE RECORDS SUMMARY | 2023-02-02 11:02 | External Medical Summary | Summary of Care ---
Author Name Unknown Organization [facility] Address [address] [facility] [place] [address] Phone [phone] Care Team Providers Care Paster Supervisor Name Role Phone Moise Parish MD Primary Care Provider [phone] [phone] Reason for Visit * Reason Onset Date Comments Tick Bite 12/31/2022 Encounter Details Date Type Department Care Team (Late st Contact Info) Description 12/31/2022 Telephone Family Practice [facility] [address] [place] [id number] Moise Parish MD [address] [place] [id number] Tick Bite Allergies Active Allergy Reactions Criticality Noted Date Comments Acetaminophen 01/31/2022 Bee Venom Rash Medium 03/26/2012 Honeybees Honey Bee Venom Anaphylaxis High 04/11/2021 Hydrocodone 01/31/2022 Hydrocodone-Acetaminophen 01/31/2022 Other reaction(s): Dermatological problems, e.g., rash, hives Propoxyphene N-Acetaminophen Hives 12/28/2009 Oxycodone Medium 12/08/2019 Other reaction(s): Itching, Skin irritation documented as of this encounter (statuses as of 12/31/2022) Medications Medication Sig Dispensed Refills Start Date [...] 10 MG Oral Tablet (Zetia)Indications: Atherosclerosis of [place] coronary artery of [place] heart without angina pectoris Take 1 Tablet by mouth in the morning. In the morning.. 30 Tablet 0 08/25/2022 Active Levothyroxine Sodium 88 MCG Oral Tablet (Levoxyl)Indication s:Atherosclerosis of [place] coronary artery of [place] heart without angina pectoris,Hypothyroi dism, acquired Take 1 Tablet by mouth daily first thing in the morning. (at least 30 min prior to breakfast or other meds) 90 Tablet 3 08/25/2022 Active Sertraline HCl 50 MG Oral Tablet (Zoloft) Take 1 Tablet by mouth in the morning. 90 Tablet 3 08/27/2022 Active Nebivolol HCl 10 MG Oral Tablet (Bystolic)Indicatio ns:Atherosclerosis of [place] coronary artery of [place] heart without angina pectoris Take 1 Tablet by mouth in the morning. 90 Tablet 3 08/27/2022 Active Rosuvastatin Calcium 40 MG Oral Tablet (Crestor)Indication s:Atherosclerosis of [place] coronary artery of [place] heart without angina pectoris Take 1 Tablet by mouth in the morning. In the morning.. 30 Tablet 0 09/25/2022 Active Ranolazine ER 1000 MG Oral Tablet Extended Release 12 HourIndications:Ath erosclerosis of [place] coronary artery of [place] heart without angina pectoris Take 1 Tablet by mouth in the morning and 1 Tablet before bedtime. 60 Tablet 0 09/25/2022 Active Doxycycline Hyclate 100 MG Oral Capsule Take 2 Capsules by mouth once for 1 dose. For a tick bite 2 Capsule 0 12/31/2022 12/31/2022 Active documented as of this encounter (statuses as of 12/31/2022) Active Problems Problem Noted Date Diagnosed Date Alcoholism in recovery 12/12/2021 IPMN (intraductal papillary mucinous neoplasm) 0 11/09/2020 Arthritis of carpometacarpal (CMC) joints of bot h thumbs 01/06/2020 Spinal stenosis of lumbar re gion with neurogenic claudication 12/29/2019 Rosacea 04/30/2018 Recurrent major depressive disorder, in full rem ission 01/01/2018 Seasonal allergic rhinitis due to pollen 018 Persistent insomnia 12/27/2016 HTN, goal below 130/80 01/06/2016 Coronary artery disease invo lving [place] coronary artery of [place] heart without angina pectoris 11/09/2015 Gastroesophageal reflux disease with esophagitis 01/06/2015 Obesity, Class I, BMI 30.0-34.9 (see actual BMI) 01/06/2015 S/P angioplasty with stent 01/06/2015 Primary osteoarthritis involving multiple joints 01/06/2015 Hypothyroidism, acquired 10/04/2014 Hyperuricuria 03/26/2012 Dyslipidemia 12/28/2009 BPH with obstruction/lower urinary tract symptom s 12/28/2009 documented as of this encounter (statuses as of 12/31/2022) Resolved Problems Problem Noted Date Diagnosed Date Resolved Date Chronic bilateral low back p ain without sciatica 11/09/2015 01/01/2018 Epigastric pain 11/09/2015 12/27/2016 Diarrhea 11/09/2015 12/27/2016 Ganglion cyst 11/09/2015 07/01/2017 Overview: 1st carpal/metacarpal joint at base of left thumb Tick bite 11/09/2015 12/27/2016 Overview: - Early October Atherosclerosis of [place] co ronary artery without angina pectoris 01/06/2015 11/09/2015 Primary osteoarthritis of fi rst carpometacarpal joint of one hand 01/06/20152014 Elevated prostate specific antigen (PSA) 01/06/2015 09/15/2019 Adjustment disorder with depressed mood 01/06/2015 01/01/2018 Family history of thyroid disease 08/31/2014 01/06/2015 Onychomycosis 11/24/2012 01/06/2015 Low back pain 03/26/2012 11/09/2015 Bee sting allergy 03/26/2012 04/30/2018 MEDICATION USE AGREEMENT 03/26/2012 Overview: Signed here 03/26/12 Chronic narcotic use 03/26/2012 014 Overview: Intermittant use Hearing loss 03/26/2012 01/06/2015 Right kidney stone 09/21/2011 3 Overweight (BMI 25.0-29.9) 08/01/2011 1 Obesity, Class I, BMI 30.0-3 4.9 (see actual BMI) 03/30/2011 08/01/2011 Osteoarthritis 03/30/2011 01/06/2015 Tinea cruris 03/30/2011 03/26/2012 Lumbar spine strain 03/30/2011 03/26/19 13 Seborrheic dermatitis 03/30/20112014 Lumbar spine pain 03/29/2011 03/26/2012 TEAR OF ARTICULAR CARTILEGE LEFT KNEE 09/06/2010 03/26/2012 TEAR LATERAL MENISCUS OF LEFT KNEE 08/14/2010 09/06/2010 GOUT 05/15/2010 01/06/2015 Lipoma 05/15/2010 03/26/2012 Overview: ICD-10 update of inactive term SLEEP APNEA 12/28/2009 03/26/2012 PPD POSITIVE 199412/28/2009 03/26/2012 CAD S/P STENTING 12/28/2009 01/06/2015 URETERAL CALCULI IN PAST 12/28/2009 UMBILICAL HERNIA S/P REPAIR 200212/28/2009 03/26/2012 TINEA CORPORIS 12/21/2009 03/26/2012 Esophageal reflux 07/01/2009 01/06/2015 Floaters 07/01/2009 03/26/2012 TINNITUS 07/01/2009 04/30/2018 documented as of this encounter (statuses as of 12/31/2022) Immunizations Name Administration Dates Next Due PPD 03/11/1994 Pneumococcal Conjugate Vacc, 13 Valent (Prevnar) 09/15/2019 Pneumococcal Polysaccharide PPV23 (Pneumovax) 03/30/2011 SEASONAL INFLUENZA, PF, 6 M & Above, IM , (FLULAVAL or FLUZONE) 12/27/2016 Season Influenza, Quad, PF, Adjuvanted, 65+ Yrs, IM (FLUAD) 12/29/2019 Seasonal Influenza, Quadriva lent, No Preserve, IM [...] = 0.6 oz pur e alcohol) daily Sex and Gender Information Value Date Recorded Sex Assigned at Not on file Gender Identity Not on file Sexual Orientation Not on file Job Start Date Occupation Industry Not on file Not on file Not on file documented as of this encounter Miscellaneous Notes * Telephone Encounter - Zoila Vega LPN - 12/31/2022 3:59 PM EDT Patient is requesting to be treated for his tick bite now Pharm selected. Please advise. He would like a phone call back once med is sent in * Telephone Encounter - Zoila Vega LPN - 12/31/2022 3:52 PM EDT Patient called to c/o of tick bite. Symptoms include: Tick bite occurred on [place] - but was out hunting 12/27, 12/28 and 12/29 Tick is not still attached. Has the tick been completely removed: Yes Patient was bitten while HUNTING in [facility]. Tick thought to be attached for UNKNOWN hours. Tick thought to be unknown. History of Lyme Disease? No Presence of a rash: No Other associated symptoms: Erythema around bite area Symptom onset: TODAY Patient Instruction: 1. If the tick has been completely removed, no appointment needed. 2. If the tick is still embedded, try to remove it by grasping it as close to the skin as possible w/ tweezers and pulling gently until it lets go or its mouth breaks off. 3. The longer the tick stays embedded, the greater the chance to transmit infection. 4. The bite itself will be red and sore for a few days or more. That is to be expected. Call back for an appointment if: 1. Redness at the bite site persists and is still sore in a week. 2. The development of any flu-like symptoms over the next month, (such as fatigue, achy, feverish or generally ill). 3. If a rash that looks like a bullseye develops over the next month. 4. Call with any further questions or concerns. Verify pharmacy. Route message to provider if tick is attached longer than 36 hours but less than 72 hours. If tick is attached for over 72 hours schedule an appointment. Any symptoms require an appointment. * Telephone Encounter - LEXUS Banegas - 12/31/2022 3:48 PM EDT Reason for patient's call: tick bite. Could have been there since or after. Pt was deer hunting Caller was transferred to Zoila at the nurse line. documented in this encounter Plan of Treatment Upcoming Encounters Date Type Department Care Team (Late st Contact Info) Description 03/27/2023 12:00 PM EST Office Visit Gastroenterology, [facility] [address] [facility] [place] [address] Cheyanne Mcginnis CRNP [address] [facility] [place] [address] Scheduled Procedures Name Priority Associated Diagnoses Date/Ti [...] filedocumented as of this encounter Care Teams Paster Supervisor Relationship Specialty Start Date End Date Moise Parish MD [address] [facility] [place] [address] PCP - General Family Medicine 01/07/19 documented as of this encounter
--- OUTSIDE RECORDS SUMMARY | 2023-02-02 11:02 | External Medical Summary | Summary of Care ---
Author Name Unknown Organization [facility] Address [address] [place] [address] Phone [phone] Care Team Providers Care Gynecologist Name Role Phone Moise Parish MD Primary Care Provider [phone] Reason for Visit * Reason Onset Date Comments Appointment 11/23/2022 Encounter Details Date Type Department Care Team Description 11/23/2022 Telephone Gastroenterology, [facility] [address] [facility] [place] [id number] Specified, Zz No Resource [address] [place], [place] [phone] Appointment Allergies Active Allergy Reactions Severity Noted [...] 10 MG Oral Tablet (Zetia)Indications: Atherosclerosis of [place] coronary artery of [place] heart without angina pectoris Take 1 Tablet by mouth in the morning. In the morning.. 30 Tablet 0 08/25/2022 Active Levothyroxine Sodium 88 MCG Oral Tablet (Levoxyl)Indication s:Atherosclerosis of [place] coronary artery of [place] heart without angina pectoris,Hypothyroi dism, acquired Take 1 Tablet by mouth daily first thing in the morning. (at least 30 min prior to breakfast or other meds) 90 Tablet 3 08/25/2022 Active Sertraline HCl 50 MG Oral Tablet (Zoloft) Take 1 Tablet by mouth in the morning. 90 Tablet 3 08/27/2022 Active Nebivolol HCl 10 MG Oral Tablet (Bystolic)Indicatio ns:Atherosclerosis of [place] coronary artery of [place] heart without angina pectoris Take 1 Tablet by mouth in the morning. 90 Tablet 3 08/27/2022 Active Rosuvastatin Calcium 40 MG Oral Tablet (Crestor)Indication s:Atherosclerosis of [place] coronary artery of [place] heart without angina pectoris Take 1 Tablet by mouth in the morning. In the morning.. 30 Tablet 0 09/25/2022 Active Ranolazine ER 1000 MG Oral Tablet Extended Release 12 HourIndications:Ath erosclerosis of [place] coronary artery of [place] heart without angina pectoris Take 1 Tablet [...] 130/80 01/06/2016 Coronary artery disease invo lving [place] coronary artery of [place] heart without angina pectoris 11/09/2015 Gastroesophageal reflux [...] Overview: Questionable - Early October Atherosclerosis of [place] co ronary artery without angina pectoris 01/06/2015 [...] encounter Miscellaneous Notes * Telephone Encounter - Whit Cavanaugh - [...] filedocumented as of this encounter Care Teams Gynecologist Relationship Specialty Start Date End Date Moise Parish MD [address] [place] [address] PCP - General Family Medicine 01/07/19 documented as of this encounter
--- OUTSIDE RECORDS SUMMARY | 2023-02-02 11:02 | External Medical Summary | Summary of Care ---
Author Name Unknown Organization [facility] Address [address] [place] [address] Phone [phone] Care Team Providers Care Compressor Mechanic Bus Name Role Phone Moise Parish MD Primary Care Provider [phone] Reason for Visit * Reason Onset Date Comments Appointment 11/23/2022 Encounter Details Date Type Department Care Team Description 11/23/2022 Telephone Gastroenterology, [facility] [address] [facility] [place] [id number] Specified, Zz No Resource [address] [place], [place] [id number] Appointment Allergies Active Allergy Reactions Severity Noted Date Comments Acetaminophen 01/31/2022 Bee Venom Rash Medium 03/26/2012 Honeybees Honey Bee Venom Anaphylaxis High 04/11/2021 Hydrocodone 01/31/2022 Hydrocodone-Acetaminophen 01/31/2022 Other reaction(s): Dermatological problems, e.g., rash, hives Propoxyphene N-Acetaminophen Hives 12/28/2009 Oxycodone Medium 12/08/2019 Other reaction(s): Itching, Skin irritation documented as of this encounter (statuses as of 11/30/2022) Medications Medication Sig Dispensed Refills Start Date [...] 10 MG Oral Tablet (Zetia)Indications: Atherosclerosis of [place] coronary artery of [place] heart without angina pectoris Take 1 Tablet by mouth in the morning. In the morning.. 30 Tablet 0 08/25/2022 Active Levothyroxine Sodium 88 MCG Oral Tablet (Levoxyl)Indication s:Atherosclerosis of [place] coronary artery of [place] heart without angina pectoris,Hypothyroi dism, acquired Take 1 Tablet by mouth daily first thing in the morning. (at least 30 min prior to breakfast or other meds) 90 Tablet 3 08/25/2022 Active Sertraline HCl 50 MG Oral Tablet (Zoloft) Take 1 Tablet by mouth in the morning. 90 Tablet 3 08/27/2022 Active Nebivolol HCl 10 MG Oral Tablet (Bystolic)Indicatio ns:Atherosclerosis of [place] coronary artery of [place] heart without angina pectoris Take 1 Tablet by mouth in the morning. 90 Tablet 3 08/27/2022 Active Rosuvastatin Calcium 40 MG Oral Tablet (Crestor)Indication s:Atherosclerosis of [place] coronary artery of [place] heart without angina pectoris Take 1 Tablet by mouth in the morning. In the morning.. 30 Tablet 0 09/25/2022 Active Ranolazine ER 1000 MG Oral Tablet Extended Release 12 HourIndications:Ath erosclerosis of [place] coronary artery of [place] heart without angina pectoris Take 1 Tablet by mouth in the morning and 1 Tablet before bedtime. 60 Tablet 0 09/25/2022 Active documented as of this encounter (statuses as of 11/30/2022) Active Problems Problem Noted Date Alcoholism in [...] 130/80 01/06/2016 Coronary artery disease invo lving [place] coronary artery of [place] heart without angina pectoris 11/09/2015 Gastroesophageal reflux disease with eso phagitis 01/06/2015 Obesity, Class I, BMI 30.0-34.9 (see act ual BMI) 01/06/2015 S/P angioplasty with stent 01/06/2015 Primary osteoarthritis involving multipl e joints 01/06/2015 Hypothyroidism, acquired 10/04/2014 Hyperuricuria 03/26/2012 Dyslipidemia 12/28/2009 BPH with obstruction/lower urinary tract symptoms 12/28/2009 documented as of this encounter (statuses as of 11/30/2022) Resolved Problems Problem Noted Date Resolved Date Chronic bilateral low back pain without sciatica 11/09/2015 01/01/2018 Epigastric pain 11/09/2015 12/27/2016 Diarrhea 11/09/2015 12/27/2016 Ganglion cyst 11/09/2015 07/01/2017 Overview: 1st carpal/metacarpal joint at base of left thumb Tick bite 11/09/2015 12/27/2016 Overview: Questionable - Early October Atherosclerosis of [place] co ronary artery without angina pectoris 01/06/2015 [...] as of this encounter (statuses as of 11/30/2022) Immunizations Name Administration Dates Next Due PPD [...] 11/23/22 Records were placed into scans on 09/15/23 documented in this encounter Plan of Treatment [...] or Tdap) 03/30/2021 03/30/2011 TSH 06/21/2022 06/21/2021, 08/2020, 12/29/2019, Additional history exists Influenza Vaccine [...] filedocumented as of this encounter Care Teams Compressor Mechanic Bus Relationship Specialty Start Date End Date Moise Parish MD [address] [place] [address] PCP - General Family Medicine 01/07/19 documented as of this encounter
--- OUTSIDE RECORDS SUMMARY | 2023-02-02 11:03 | External Medical Summary | Summary of Care ---
Author Name Unknown Organization [facility] Address [address] [facility] [place] [address] Phone [phone] Care Team Providers Care Breed To Wean Production Technician Name Role Phone Moise Parish MD Primary Care Provider [phone] Reason for Visit * Reason Onset Date Comments Medication Refill 08/23/2022 Encounter Details Date Type Department Care Team Description 08/23/2022 [facility] [address] [facility] [place] [address] Ankit Camacho DO [address] [place] [address] Atherosclerosis of twenty-nine [place] coronary artery of [place] heart without angina pectoris Allergies Active Allergy Reactions Severity Noted Date Comments Acetaminophen 01/31/2022 Bee Venom Rash Medium 03/26/2012 Honeybees Honey Bee Venom Anaphylaxis High 04/11/2021 Hydrocodone 01/31/2022 Hydrocodone-Acetaminophen 01/31/2022 Other reaction(s): Dermatological problems, e.g., rash, hives Propoxyphene N-Acetaminophen Hives 12/28/2009 Oxycodone Medium 12/08/2019 Other reaction(s): Itching, Skin irritation documented as of this encounter (statuses as of 08/27/2022) Medications Medication Sig Dispensed Refills Start Date [...] 02/05/2022 EPINEPHrine, anaphylaxis, (EPI-PEN) 0.3 MG/0.3ML SOAJ injectionIndicatio ns:Bee sting allergy For a severe reaction: Place orange end against the outer thigh, press firmly, hold in place for 10 seconds and go to the Emergency room. 2 Each 3 07/08/2019 Active betamethasone dipropionate (DIPROSONE) 0.05 % creamIndications:S eborrheic dermatitis Apply topically to affected area 2 times a day. To affected area. 90 g 3 07/07/2019 Active terbinafine (LAMISIL AT) 1 % creamIndications:T inea cruris Apply topically to affected area 2 times a day. To affected area. 12 g 0 07/10/2019 Active metroNIDAZOLE, topical, (METROCREAM) 0.75 % creamIndications:D ermatitis Apply topically to affected area 2 times a day. apply to affected area. 45 g 2 07/07/2019 Active triamcinolone acetonide (ARISTOCORT) 0.1 % lotionIndications: Dermatitis Apply topically to affected area 2 times a day. Apply to scalp daily as needed 60 mL 3 07/07/2019 Active traMADol HCl 100 MG Oral TabletIndications: Lumbar back pain Take 100 mg by mouth [...] Active Fluticasone Propionate 50 MCG/ACT Nasal Suspension (Flonase)Indicatio ns:Seasonal allergic rhinitis due to pollen Administer 2 Sprays into each nostril in the morning. 16 g 0 05/29/2022 Active Zolpidem Tartrate 10 MG Oral Tablet (Ambien)Indication s:Persistent insomnia Take 1 Tablet by mouth at bedtime as needed for Sleep. 15 Tablet 0 05/29/2022 Active Sertraline HCl 50 MG Oral Tablet (Zoloft) Take 1 Tablet by mouth in the morning. 90 Tablet 3 08/27/2022 Active Nebivolol HCl 10 MG Oral Tablet (Bystolic)Indicati ons:Atherosclerosi s of [place] coronary artery of [place] heart without angina pectoris Take 1 Tablet by mouth in the morning. 90 Tablet 3 08/27/2022 Active Loratadine 10 MG CapIndications:All ergic rhinitis due to pollen Take 1 Cap by mouth daily. 90 Cap 3 07/07/2019 3 Discontinue d(Refill) Sertraline HCl 50 MG Oral Tablet (Zoloft) TAKE 1 TABLET DAILY 90 Tablet 3 06/27/2021 3 Discontinue d(Refill) Nebivolol HCl 10 MG Oral Tablet (Bystolic)Indicati ons:Atherosclerosi s of [place] coronary artery of [place] heart without angina pectoris TAKE 1 TABLET DAILY 90 Tablet 3 06/27/2021 3 Discontinue d(Refill) Ezetimibe 10 MG Oral Tablet (Zetia)Indications :Atherosclerosis of [place] coronary artery of [place] heart without angina pectoris Take 1 Tablet by mouth in the morning. In the morning.. 30 Tablet 0 05/29/2022 3 Discontinue d(Refill) Levothyroxine Sodium 88 MCG Oral Tablet (Levoxyl)Indicatio ns:Atherosclerosis of [place] coronary artery of [place] heart without angina pectoris,Hypothyro idism, acquired Take 1 Tablet by mouth daily first thing in the morning. (at least 30 min prior to breakfast or other meds) 90 Tablet 3 05/29/2022 3 Discontinue d(Refill) Rosuvastatin Calcium 40 MG Oral Tablet (Crestor)Indicatio ns:Atherosclerosis of [place] coronary artery of [place] heart without angina pectoris Take 1 Tablet by mouth in the morning. In the morning.. 30 Tablet 0 05/29/2022 3 Discontinue d(Refill) Ranolazine ER 1000 MG Oral Tablet Extended Release 12 HourIndications:At herosclerosis of [place] coronary artery of [place] heart without angina pectoris Take 1 Tablet by mouth in the morning and 1 Tablet before bedtime. 60 Tablet 0 05/29/2022 3 Discontinue d(Refill) documented as of this encounter (statuses as of 08/27/2022) Active Problems Problem Noted Date Alcoholism in [...] 130/80 01/06/2016 Coronary artery disease invo lving [place] coronary artery of [place] heart without angina pectoris 11/09/2015 Gastroesophageal reflux disease with eso phagitis 01/06/2015 Obesity, Class I, BMI 30.0-34.9 (see act ual BMI) 01/06/2015 S/P angioplasty with stent 01/06/2015 Primary osteoarthritis involving multipl e joints 01/06/2015 Hypothyroidism, acquired 10/04/2014 Hyperuricuria 03/26/2012 Dyslipidemia 12/28/2009 BPH with obstruction/lower urinary tract symptoms 12/28/2009 documented as of this encounter (statuses as of 08/27/2022) Resolved Problems Problem Noted Date Resolved Date Chronic bilateral low back pain without sciatica 11/09/2015 01/01/2018 Epigastric pain 11/09/2015 12/27/2016 Diarrhea 11/09/2015 12/27/2016 Ganglion cyst 11/09/2015 07/01/2017 Overview: 1st carpal/metacarpal joint at base of left thumb Tick bite 11/09/2015 12/27/2016 Overview: - Early October Atherosclerosis of [place] co ronary artery without angina pectoris 01/06/2015 11/09/2015 Primary osteoarthritis of fi rst carpometacarpal joint of one hand 01/06/2015 01/06/2015 Elevated prostate specific antigen (PSA) 015 09/15/2019 Adjustment disorder with depressed mood 01/07/20 01/01/2018 Family history of thyroid disease 08/31/2014 [...] as of this encounter (statuses as of 08/27/2022) Immunizations Name Administration Dates Next Due PPD 03/11/1994 Pneumococcal Conjugate Vacc, 13 Valent (Prevnar) 09/15/2019 Pneumococcal Polysaccharide PPV23 (Pneumovax) 03/30/2011 Seasonal Influenza, Quadriva lent, No Preserve, 6 Mons & Above, IM 12/27/2016 Seasonal Influenza, Quadriva lent, No Preserve, Adjuvanted, 65+ Yrs, IM 12/29/2019 Seasonal Influenza, Quadriva lent, No Preserve, [...] encounter Miscellaneous Notes * Telephone Encounter - Ankit Camacho DO - 08/27/2022 9:36 AM EDTSigned Prescriptions: Disp Refills Sertraline HCl 50 MG Oral Tablet (Zoloft) 90 Tab*3 Sig: Take 1 Tablet by mouth in the morning. Authorizing Provider: ANKIT CAMACHO Nebivolol HCl 10 MG Oral Tablet (Bystolic) 90 Tab*3 Sig: Take 1 Tablet by mouth in the morning. Authorizing Provider: ANKIT CAMACHO * Telephone Encounter - Luz Arroyo LPN - 08/25/2022 12:28 PM EDTPending Prescriptions: Disp Refills Sertraline HCl 50 MG Oral Tablet (Zoloft) 90 Tab*3 Sig: Take 1 Tablet by mouth in the morning. Nebivolol HCl 10 MG Oral Tablet (Bystolic) 90 Tab*3 Sig: Take 1 Tablet by mouth in the morning. * Telephone Encounter - Luz Arroyo LPN - 08/25/2022 12:27 PM EDT Pending Prescriptions: Disp Refills Sertraline HCl 50 MG Oral Tablet (Zoloft) 90 Tab*3 Sig: Take 1 Tablet by mouth in the morning. Nebivolol HCl 10 MG Oral Tablet (Bystolic)90 Tab*3 Sig: Take 1 Tablet by mouth in the morning. Last Visit: 01/01/2018 (in office), Visit date not found (telemedicine) Next Visit: Visit date not found Last date the medication was ordered: 06/27/2021 Patient Active Problem List Diagnosis Code Dyslipidemia E78.5 BPH with obstruction/lower urinary tract symptoms N40.1, N13.8 Hyperuricuria R82.998 Hypothyroidism, acquired E03.9 Gastroesophageal reflux disease with esophagitis K21.00 Obesity, Class I, BMI 30.0-34.9 (see actual BMI) E66.9 S/P angioplasty with stent Z95.820 Primary osteoarthritis involving multiple joints M15.9 Coronary artery disease involving [place] coronary artery of [place] heart without angina pectoris I25.10 HTN, goal below 130/80 I10 Persistent insomnia G47.00 Recurrent major depressive disorder, in full remission (HCC) F33.42 Seasonal allergic rhinitis due to pollen J30.1 Rosacea L71.9 Spinal stenosis of lumbar region with neurogenic claudication M48.062 Arthritis of carpometacarpal (CMC) joints of both thumbs M18.0 IPMN (intraductal papillary mucinous neoplasm) D49.0 Alcoholism in recovery (HCC) F10.21 Labs: Lab Results Component Value Date/Time CREATININE - [facility] 1.0 12/12/2021 02:44 PM CREATININE - [facility] 0.9 12/29/2019 01:23 PM CREATININE-[facility] 1.06 01/07/2019 12:00 AM Lab Results Component Value Date/Time POTASSIUM - [facility] 4.7 12/12/2021 02:44 PM POTASSIUM - [facility] 4.8 12/29/2019 01:23 PM POTASSIUM-[facility] 4.5 01/07/2019 12:00 AM Lab Results Component Value Date/Time TSH - [facility] 2.07 06/21/2021 04:54 PM TSH - [facility] 3.02 12/29/2019 01:23 PM TSH - [facility] 3.92 01/07/2019 12:00 AM Lab Results Component Value Date/Time LDL (CALCULATED)-[facility] 106 (A) 01/07/2019 12:00 AM LDL (CALCULATED)-[facility] 70 12/30/2017 12:00 AM LDL (DIRECT MEASURE)-[facility] 90 06/27/2017 12:00 AM LDL (DIRECT MEASURE)-[facility] 88 12/25/2012 12:00 AM LDL CHOLESTEROL (CALCULATED) - [facility] 75 02/13/2021 10:38 AM LDL CHOLESTEROL (CALCULATED) - [facility] 79 12/29/2019 01:23 PM LDL CHOLESTEROL (CALCULATED) - [facility] 89 10/11/2015 08:12 AM LDL CHOLESTEROL (DIRECT MEASURE) - [facility] NOT APPLICABLE 12/29/2019 01:23 PM LDL CHOLESTEROL (DIRECT MEASURE) - [facility] 69 12/25/2016 08:31 AM LDL CHOLESTEROL (DIRECT MEASURE) - [facility] 120 11/11/2015 08:08 AM Lab Results Component Value Date/Time ALT - [facility] 41 12/12/2021 02:44 PM ALT - [facility] 61 (H) 12/25/2016 08:31 AM Hemoglobin AIC Results: No results found for: HEMOGLOBIN A1C documented in this encounter Plan of Treatment Scheduled Procedures Name Priority Associated Diagnoses Date/Ti me COLONOSCOPY FLEXIBLE PROXIMA L DIAGNOSTIC Recall History of colonic polyps Family history of colon cancer Health Maintenance Due Date Last Done Comments COVID-19 Vaccine (#1) 1955 Albumin/Creatinine Ratio 02/09/1972 Pneumococcal Vaccine: 65+ Years (3 - PPSV23 if available, else PCV20) 09/14/2020 09/15/2019, 03/30/2011 Depression Screening, Annual for Pts 12 and Over 12/28/2020 12/29/2019 DTaP,Tdap,and Td Vaccines (2 - Td or Tdap) 03/30/2021 03/30/2011 TSH 06/21/2022 06/21/2021, 12/0 08/2020, 12/29/2019, Additional history exists Influenza Vaccine (FLU shot) (Season Ended) 2022 02/28/2021, 12/29/2019, 01/22/2018, Additional history exists GFR 12/12/2022 12/12/2021, 10/09, 12/29/2019, Additional history exists Diabetes Screening 12/12/2024 12/12/2021, 0 10/25/2020, 12/29/2019, Additional history exists COLONOSCOPY-EVERY 5 YRS AGES 18-100 02/07/2027 02/07/2022, 02/07/2022, 08/08/2016, Additional history exists Zoster Vaccines Completed 07/19/2021, 020 03/2021, 11/01/2014 Colonoscopy Discontinued 02/07/2022, 01/11, 08/08/2016, [...] Not on filedocumented as of this encounter Visit Diagnoses Diagnosis Atherosclerosis of twenty-nine [place] coronary artery of [place] heart without angina pectoris documented in this encounter Care Teams Breed To Wean Production Technician Relationship Specialty Start Date End Date Moise Parish MD [address] [place] [address] PCP - General Family Medicine 01/07/19 documented as of this encounter
--- OUTSIDE RECORDS SUMMARY | 2023-02-02 11:03 | External Medical Summary | Summary of Care ---
Author Name Unknown Organization [facility] [address] [facility] [address] Phone [phone] Care Team Providers Care Asset Protection Representative Name Role Phone Ace Turk MD Primary Care Provider [phone] Reason for Visit * Reason Onset Date Comments Medication Refill 08/23/2022 Encounter Details Date Type Department Care Team Description 08/23/2022 Refill [facility] [address] [facility] [place] [address] Ace Turk MD [address] [facility] [place] [address] Allergic rhinitis due to pollen; Atherosclerosis of [place] coronary artery of [place] heart without angina pectoris; Hypothyroidism, acquired Allergies Active Allergy Reactions Severity Noted Date Comments Acetaminophen 01/31/2022 Bee Venom Rash Medium 03/26/2012 Honeybees Honey Bee Venom Anaphylaxis High 04/11/2021 Hydrocodone 01/31/2022 Hydrocodone-Acetaminophen 01/31/2022 Other reaction(s): Dermatological problems, e.g., rash, hives Propoxyphene N-Acetaminophen Hives 12/28/2009 Oxycodone Medium 12/08/2019 Other reaction(s): Itching, Skin irritation documented as of this encounter (statuses as of 08/25/2022) Medications Medication Sig Dispensed Refills Start Date [...] eye daily. 7.5 mL 3 08/12/2020 Active Sertraline HCl 50 MG Oral Tablet (Zoloft) TAKE 1 TABLET DAILY 90 Tablet 3 06/27/2021 Active Nebivolol HCl 10 MG Oral Tablet (Bystolic)Indicati ons:Atherosclerosi s of [place] coronary artery of [place] heart without angina pectoris TAKE 1 TABLET DAILY 90 Tablet 3 06/27/2021 Active Celecoxib 100 MG Oral Capsule (CeleBREX) [...] 0 05/29/2022 Active Loratadine 10 MG Oral CapsuleIndications :Allergic rhinitis due to pollen Take 1 Capsule by mouth in the morning. 90 Capsule 3 08/25/2022 Active Ezetimibe 10 MG Oral Tablet (Zetia)Indications :Atherosclerosis of [place] coronary artery of [place] heart without angina pectoris Take 1 Tablet by mouth in the morning. In the morning.. 30 Tablet 0 08/25/2022 Active Levothyroxine Sodium 88 MCG Oral Tablet (Levoxyl)Indicatio ns:Atherosclerosis of [place] coronary artery of [place] heart without angina pectoris,Hypothyro idism, acquired Take 1 Tablet by mouth daily first thing in the morning. (at least 30 min prior to breakfast or other meds) 90 Tablet 3 08/25/2022 Active Rosuvastatin Calcium 40 MG Oral Tablet (Crestor)Indicatio ns:Atherosclerosis of [place] coronary artery of [place] heart without angina pectoris Take 1 Tablet by mouth in the morning. In the morning.. 30 Tablet 0 08/25/2022 Active Ranolazine ER 1000 MG Oral Tablet Extended Release 12 HourIndications:At herosclerosis of [place] coronary artery of [place] heart without angina pectoris Take 1 Tablet by mouth in the morning and 1 Tablet before bedtime. 60 Tablet 0 08/25/2022 Active Loratadine 10 MG CapIndications:All ergic rhinitis due to pollen Take 1 Cap by mouth daily. 90 Cap 3 07/07/2019 3 Discontinue d(Refill) Ezetimibe 10 MG Oral Tablet (Zetia)Indications :Atherosclerosis of [place] coronary artery of [place] heart without angina pectoris Take 1 Tablet by mouth in the morning. In the morning.. 30 Tablet 0 05/29/2022 3 Discontinue d(Refill) Levothyroxine Sodium 88 MCG Oral Tablet (Levoxyl)Indicatio ns:Atherosclerosis of [place] coronary artery of [place] heart without angina pectoris,Hypothyro idism, acquired Take 1 Tablet by mouth daily first thing in the morning. (at least 30 min prior to breakfast or other meds) 90 Tablet 3 05/29/2022 3 Discontinue d(Refill) Rosuvastatin Calcium 40 MG Oral Tablet (Crestor)Indicatio ns:Atherosclerosis of [place] coronary artery of [place] heart without angina pectoris Take 1 Tablet by mouth in the morning. In the morning.. 30 Tablet 0 05/29/2022 3 Discontinue d(Refill) Ranolazine ER 1000 MG Oral Tablet Extended Release 12 HourIndications:At herosclerosis of [place] coronary artery of [place] heart without angina pectoris Take 1 Tablet by mouth in the morning and 1 Tablet before bedtime. 60 Tablet 0 05/29/2022 3 Discontinue d(Refill) documented as of this encounter (statuses as of 08/25/2022) Active Problems Problem Noted Date Alcoholism in [...] 130/80 01/06/2016 Coronary artery disease invo lving [place] coronary artery of [place] heart without angina pectoris 11/09/2015 Gastroesophageal reflux disease with eso phagitis 01/06/2015 Obesity, Class I, BMI 30.0-34.9 (see act ual BMI) 01/06/2015 S/P angioplasty with stent 01/06/2015 Primary osteoarthritis involving multipl e joints 01/06/2015 Hypothyroidism, acquired 10/04/2014 Hyperuricuria 03/26/2012 Dyslipidemia 12/28/2009 BPH with obstruction/lower urinary tract symptoms 12/28/2009 documented as of this encounter (statuses as of 08/25/2022) Resolved Problems Problem Noted Date Resolved Date Chronic bilateral low back pain without sciatica 11/09/2015 01/01/2018 Epigastric pain 11/09/2015 12/27/2016 Diarrhea 11/09/2015 12/27/2016 Ganglion cyst 11/09/2015 07/01/2017 Overview: 1st carpal/metacarpal joint at base of left thumb Tick bite 11/09/2015 12/27/2016 Overview: Questionable - Early October Atherosclerosis of [place] co ronary artery without angina pectoris 01/06/2015 [...] as of this encounter (statuses as of 08/25/2022) Immunizations Name Administration Dates Next Due PPD [...] encounter Miscellaneous Notes * Telephone Encounter - Ace Turk MD - 08/25/2022 12:33 PM EDTSigned Prescriptions: Disp Refills Loratadine 10 MG Oral Capsule 90 Cap*3 Sig: Take 1 Capsule by mouth in the morning. Authorizing Provider: ACE TURK Ezetimibe 10 MG Oral Tablet (Zetia) 30 Tab*0 Sig: Take 1 Tablet by mouth in the morning. In the morning.. Authorizing Provider: ACE TURK Levothyroxine Sodium 88 MCG Oral Tablet (L*90 Tab*3 Sig: Take 1 Tablet by mouth daily first thing in the morning. (at least 30 min prior to breakfast or other meds) Authorizing Provider: ACE TURK Rosuvastatin Calcium 40 MG Oral Tablet (Cr*30 Tab*0 Sig: Take 1 Tablet by mouth in the morning. In the morning.. Authorizing Provider: ACE TURK Ranolazine ER 1000 MG Oral Tablet Exten ded*60 Tab*0 Sig: Take 1 Tablet by mouth in the morning and 1 Tablet before bedtime. Authorizing Provider: ACE TURK * Telephone Encounter - Luz Arroyo LPN - 08/25/2022 12:26 PM EDTPending Prescriptions: Disp Refills Loratadine 10 MG Oral Capsule 90 Cap*3 Sig: Take 1 Capsule by mouth in the morning. Ezetimibe 10 MG Oral Tablet (Zetia) 30 Tab*0 Sig: Take 1 Tablet by mouth in the morning. In the morning.. Levothyroxine Sodium 88 MCG Oral Tablet (L*90 Tab*3 Sig: Take 1 Tablet by mouth daily first thing in the morning. (at least 30 min prior to breakfast or other meds) Rosuvastatin Calcium 40 MG Oral Tablet (Cr*30 Tab*0 Sig: Take 1 Tablet by mouth in the morning. In the morning.. Ranolazine ER 1000 MG Oral Tablet Extended*60 Tab*0 Sig: Take 1 Tablet by mouth in the morning and 1 Tablet before bedtime. * Telephone Encounter - Luz Arroyo LPN - 08/25/2022 12:25 PM EDT Pending Prescriptions: Disp Refills Loratadine 10 MG Oral Capsule 90 Cap*3 Sig: Take 1 Capsule by mouth in the morning. Ezetimibe 10 MG Oral Tablet (Zetia) 30 Tab*0 Sig: Take 1 Tablet by mouth in the morning. In the morning.. Levothyroxine Sodium 88 MCG Oral Tablet (*90 Tab*3 Sig: Take 1 Tablet by mouth daily first thing in the morning. (at least 30 min prior to breakfast or other meds) Rosuvastatin Calcium 40 MG Oral Tablet (C*30 Tab*0 Sig: Take 1 Tablet by mouth in the morning. In the morning.. Ranolazine ER 1000 MG Oral Tablet Extende*60 Tab*0 Sig: Take 1 Tablet by mouth in the morning and 1 Tablet before bedtime. Last Visit: 01/01/2018 (in office), Visit date not found (telemedicine) Next Visit: Visit date not found Last date the medication was ordered: 05/29/2022 Patient Active Problem List Diagnosis Code Dyslipidemia E78.5 BPH with obstruction/lower urinary tract symptoms N40.1, N13.8 Hyperuricuria R82.998 Hypothyroidism, acquired E03.9 Gastroesophageal reflux disease with esophagitis K21.00 Obesity, Class I, BMI 30.0-34.9 (see actual BMI) E66.9 S/P angioplasty with stent Z95.820 Primary osteoarthritis involving multiple joints M15.9 Coronary artery disease involving [place] coronary artery of [place] heart without angina pectoris I25.10 HTN, goal [...] Additional history exists Zoster Vaccines Completed 07/19/2021, 0203/2021, 11/01/2014 Colonoscopy Discontinued 02/07/2022, 01/11, 08/08/2016, Additional [...] as of this encounter Visit Diagnoses Diagnosis Allergic rhinitis due to pollen Atherosclerosis of [place] coronary artery of [place] heart without angina pectoris Hypothyroidism, acquired Unspecified hypothyroidism documented in this encounter Care Teams Asset Protection Representative Relationship Specialty Start Date End Date Ace Turk MD [address] [place] [address] PCP - General Family Medicine 01/07/19 documented as of this encounter
--- OUTSIDE RECORDS SUMMARY | 2023-02-02 11:03 | External Medical Summary | Summary of Care ---
Author Name Unknown Organization [facility] Address [address] [place] [address] Phone [phone] Care Team Providers Care Canning Machine Operator Name Role Phone Moise Parish MD Primary Care Provider [phone] Reason for Visit * Reason Onset Date Comments Films 10/16/2022 Encounter Details Date Type Department Care Team Description 10/16/2022 Telephone Radiology Film File [address], [place] [id number] Moise Parish MD [address] [place] [address] Films Allergies Active Allergy Reactions Severity Noted Date Comments Acetaminophen 01/31/2022 Bee Venom Rash Medium 03/26/2012 Honeybees Honey Bee Venom Anaphylaxis High 04/11/2021 Hydrocodone 01/31/2022 Hydrocodone-Acetaminophen 01/31/2022 Other reaction(s): Dermatological problems, e.g., rash, hives Propoxyphene N-Acetaminophen Hives 12/28/2009 Oxycodone Medium 12/08/2019 Other reaction(s): Itching, Skin irritation documented as of this encounter (statuses as of 10/16/2022) Medications Medication Sig Dispensed Refills Start Date [...] 10 MG Oral Tablet (Zetia)Indications: Atherosclerosis of [place] coronary artery of [place] heart without angina pectoris Take 1 Tablet by mouth in the morning. In the morning.. 30 Tablet 0 08/25/2022 Active Levothyroxine Sodium 88 MCG Oral Tablet (Levoxyl)Indication s:Atherosclerosis of [place] coronary artery of [place] heart without angina pectoris,Hypothyroi dism, acquired Take 1 Tablet by mouth daily first thing in the morning. (at least 30 min prior to breakfast or other meds) 90 Tablet 3 08/25/2022 Active Sertraline HCl 50 MG Oral Tablet (Zoloft) Take 1 Tablet by mouth in the morning. 90 Tablet 3 08/27/2022 Active Nebivolol HCl 10 MG Oral Tablet (Bystolic)Indicatio ns:Atherosclerosis of [place] coronary artery of [place] heart without angina pectoris Take 1 Tablet by mouth in the morning. 90 Tablet 3 08/27/2022 Active Rosuvastatin Calcium 40 MG Oral Tablet (Crestor)Indication s:Atherosclerosis of [place] coronary artery of [place] heart without angina pectoris Take 1 Tablet by mouth in the morning. In the morning.. 30 Tablet 0 09/25/2022 Active Ranolazine ER 1000 MG Oral Tablet Extended Release 12 HourIndications:Ath erosclerosis of [place] coronary artery of [place] heart without angina pectoris Take 1 Tablet by mouth in the morning and 1 Tablet before bedtime. 60 Tablet 0 09/25/2022 Active documented as of this encounter (statuses as of 10/16/2022) Active Problems Problem Noted Date Alcoholism in [...] 130/80 01/06/2016 Coronary artery disease invo lving [place] coronary artery of [place] heart without angina pectoris 11/09/2015 Gastroesophageal reflux disease with eso phagitis 01/06/2015 Obesity, Class I, BMI 30.0-34.9 (see act ual BMI) 01/06/2015 S/P angioplasty with stent 01/06/2015 Primary osteoarthritis involving multipl e joints 01/06/2015 Hypothyroidism, acquired 10/04/2014 Hyperuricuria 03/26/2012 Dyslipidemia 12/28/2009 BPH with obstruction/lower urinary tract symptoms 12/28/2009 documented as of this encounter (statuses as of 10/16/2022) Resolved Problems Problem Noted Date Resolved Date Chronic bilateral low back pain without sciatica 11/09/2015 01/01/2018 Epigastric pain 11/09/2015 12/27/2016 Diarrhea 11/09/2015 12/27/2016 Ganglion cyst 11/09/2015 07/01/2017 Overview: 1st carpal/metacarpal joint at base of left thumb Tick bite 11/09/2015 12/27/2016 Overview: Questionable - Early October Atherosclerosis of [place] co ronary artery without angina pectoris 01/06/2015 [...] as of this encounter (statuses as of 10/16/2022) Immunizations Name Administration Dates Next Due PPD [...] Miscellaneous Notes * Telephone Encounter - LEXUS Hall - 10/16/2022 10:22 AM EDT [facility] / [place] requesting 11/07/20 Liver MR Imaging and Report(s). [place] Authorization to Release on file. Images pushed through [email or web address] to [facility]. Job ID: [id number] Report(s) faxed to [phone]. Successful fax confirmation received. documented in this encounter Plan of Treatment Scheduled Procedures Name Priority Associated Diagnoses Date/Ti me COLONOSCOPY FLEXIBLE PROXIMA L DIAGNOSTIC Recall History of colonic polyps Family history of colon cancer Health Maintenance Due Date Last Done Comments COVID-19 Vaccine (#1) 1955 Albumin/Creatinine Ratio 02/09/1972 Pneumococcal Vaccine: 65+ Years (3 - PPSV23 or PCV20) 09/14/2020 09/15/2019, 03/30/2011 Depression Screening, Annual [...] filedocumented as of this encounter Care Teams Canning Machine Operator Relationship Specialty Start Date End Date Moise Parish MD [address] [place] [address] PCP - General Family Medicine 01/07/19 documented as of this encounter
--- OUTSIDE RECORDS SUMMARY | 2023-02-02 11:03 | External Medical Summary | Summary of Care ---
Author Name Unknown Organization [facility] Address [address] [facility] [address] Phone [phone] Care Team Providers Care Marketing Analytics Specialist Name Role Phone Ace Turk MD Primary Care Provider [phone] Reason for Visit * Reason Onset Date Comments Medication Refill 09/25/2022 Encounter Details Date Type Department Care Team Description 09/25/2022 Refill [facility] [address] [facility] [place] [address] Ace Turk MD [address] [facility] [place] [address] Atherosclerosis of [place] coronary artery of [place] heart without angina pectoris Allergies Active Allergy Reactions Severity Noted Date Comments Acetaminophen 01/31/2022 Bee Venom Rash Medium 03/26/2012 Honeybees Honey Bee Venom Anaphylaxis High 04/11/2021 Hydrocodone 01/31/2022 Hydrocodone-Acetaminophen 01/31/2022 Other reaction(s): Dermatological problems, e.g., rash, hives Propoxyphene N-Acetaminophen Hives 12/28/2009 Oxycodone Medium 12/08/2019 Other reaction(s): Itching, Skin irritation documented as of this encounter (statuses as of 09/25/2022) Medications Medication Sig Dispensed Refills Start Date [...] 10 MG Oral Tablet (Zetia)Indications :Atherosclerosis of [place] coronary artery of [place] heart without angina pectoris Take 1 Tablet by mouth in the morning. In the morning.. 30 Tablet 0 08/25/2022 Active Levothyroxine Sodium 88 MCG Oral Tablet (Levoxyl)Indicatio ns:Atherosclerosis of [place] coronary artery of [place] heart without angina pectoris,Hypothyro idism, acquired Take 1 Tablet by mouth daily first thing in the morning. (at least 30 min prior to breakfast or other meds) 90 Tablet 3 08/25/2022 Active Sertraline HCl 50 MG Oral Tablet (Zoloft) Take 1 Tablet by mouth in the morning. 90 Tablet 3 08/27/2022 Active Nebivolol HCl 10 MG Oral Tablet (Bystolic)Indicati ons:Atherosclerosi s of [place] coronary artery of [place] heart without angina pectoris Take 1 Tablet by mouth in the morning. 90 Tablet 3 08/27/2022 Active Rosuvastatin Calcium 40 MG Oral Tablet (Crestor)Indicatio ns:Atherosclerosis of [place] coronary artery of [place] heart without angina pectoris Take 1 Tablet by mouth in the morning. In the morning.. 30 Tablet 0 09/25/2022 Active Ranolazine ER 1000 MG Oral Tablet Extended Release 12 HourIndications:At herosclerosis of [place] coronary artery of [place] heart without angina pectoris Take 1 Tablet by mouth in the morning and 1 Tablet before bedtime. 60 Tablet 0 09/25/2022 Active Rosuvastatin Calcium 40 MG Oral Tablet (Crestor)Indicatio ns:Atherosclerosis of [place] coronary artery of [place] heart without angina pectoris Take 1 Tablet by mouth in the morning. In the morning.. 30 Tablet 0 08/25/2022 3 Discontinue d(Refill) Ranolazine ER 1000 MG Oral Tablet Extended Release 12 HourIndications:At herosclerosis of [place] coronary artery of [place] heart without angina pectoris Take 1 Tablet by mouth in the morning and 1 Tablet before bedtime. 60 Tablet 0 08/25/2022 3 Discontinue d(Refill) documented as of this encounter (statuses as of 09/25/2022) Active Problems Problem Noted Date Alcoholism in [...] 130/80 01/06/2016 Coronary artery disease invo lving [place] coronary artery of [place] heart without angina pectoris 11/09/2015 Gastroesophageal reflux disease with eso phagitis 01/06/2015 Obesity, Class I, BMI 30.0-34.9 (see act ual BMI) 01/06/2015 S/P angioplasty with stent 01/06/2015 Primary osteoarthritis involving multipl e joints 01/06/2015 Hypothyroidism, acquired 10/04/2014 Hyperuricuria 03/26/2012 Dyslipidemia 12/28/2009 BPH with obstruction/lower urinary tract symptoms 12/28/2009 documented as of this encounter (statuses as of 09/25/2022) Resolved Problems Problem Noted Date Resolved Date Chronic bilateral low back pain without sciatica 11/09/2015 01/01/2018 Epigastric pain 11/09/2015 12/27/2016 Diarrhea 11/09/2015 12/27/2016 Ganglion cyst 11/09/2015 07/01/2017 Overview: 1st carpal/metacarpal joint at base of left thumb Tick bite 11/09/2015 12/27/2016 Overview: Questionable - Early October Atherosclerosis of [place] co ronary artery without angina pectoris 01/06/2015 [...] as of this encounter (statuses as of 09/25/2022) Immunizations Name Administration Dates Next Due PPD [...] Telephone Encounter - Ace Turk MD - 09/25/2022 3:42 PM EDTSigned Prescriptions: Disp Refills Rosuvastatin Calcium 40 MG Oral Tablet (Cr*30 Tab*0 Sig: Take 1 Tablet by mouth in the morning. In the morning.. Authorizing Provider: ACE TURK Ranolazine ER 1000 MG Oral Tablet Extended*60 Tab*0 Sig: Take 1 Tablet by mouth in the morning and 1 Tablet before bedtime. Authorizing Provider: ACE TURK * Telephone Encounter - Luz Arroyo LPN - 09/25/2022 3:39 PM EDTPending Prescriptions: Disp Refills Rosuvastatin Calcium 40 MG Oral Tablet (Cr*30 Tab*0 Sig: Take 1 Tablet by mouth in the morning. In the morning.. Ranolazine ER 1000 MG Oral Tablet Extended*60 Tab*0 Sig: Take 1 Tablet by mouth in the morning and 1 Tablet before bedtime. * Telephone Encounter - Luz Arroyo LPN - 09/25/2022 3:38 PM EDT Pending Prescriptions: Disp Refills Rosuvastatin Calcium 40 MG Oral Tablet (C*30 [...] found Last date the medication was ordered: 08/25/2022 Patient Active Problem List Diagnosis Code Dyslipidemia E78.5 BPH with obstruction/lower urinary tract symptoms N40.1, N13.8 Hyperuricuria R82.998 Hypothyroidism, acquired E03.9 Gastroesophageal reflux disease with esophagitis K21.00 Obesity, Class I, BMI 30.0-34.9 (see actual BMI) E66.9 S/P angioplasty with stent Z95.820 Primary osteoarthritis involving multiple joints M15.9 Coronary artery disease involving [place] coronary artery of [place] heart without angina pectoris I25.10 HTN, goal [...] this encounter Visit Diagnoses Diagnosis Atherosclerosis of [place] coronary artery of [place] heart without angina pectoris documented in this encounter Care Teams Marketing Analytics Specialist Relationship Specialty Start Date End Date Ace Turk MD [address] [place] [id number] PCP - General Family Medicine 01/07/19 documented as of this encounter
[2023-02-02] MEDS ORDERED: SODIUM CHLORIDE 0.9% 500 ML IV ONE (11:29)
[2023-02-02] MEDS ORDERED: OPTIRAY 320 125ml IV ONE (11:33)
[2023-02-02 11:41] LABS: Basophils # (auto) 0.02 K/uL (0.00-0.20); Basophils % (auto) 0.4 %; Eosinophils # (auto) 0.13 K/uL (0.00-0.50); Eosinophils % (auto) 2.3 %; Hematocrit (blood only) 40.6 % (42.0-52.0); Hemoglobin 13.8 g/dl (14.0-18.0); Immature Granulocytes % (auto) 1.8 %; Lymphocytes # (auto) 0.98 K/uL (1.20-3.40); Lymphocytes % (auto) 17.5 %; Mean Corpuscular Hemoglobin 30.3 pg (25.0-34.0); Mean Platelet Volume 8.7 fL (9.4-12.4); Monocytes # (auto) 0.81 K/uL (0.11-0.59); Monocytes % (auto) 14.4 %; Neutrophils # (auto) 3.57 K/uL (1.40-6.50); Neutrophils % (auto) 63.6 %; Platelet Count 164 K/uL (130-400); RDW Coefficient of Variation 13.2 % (11.5-14.5); RDW Standard Deviation 43.3 fL (36.4-46.3); Red Blood Count 4.56 M/uL (4.70-6.10); White Blood Count 5.61 K/ul (4.8-10.8)
--- NOTE | 2023-02-02 11:50 | CT Scan Report ---
HEAD CT NONCONTRAST CT DOSE: HISTORY: neuro deficit, acute stroke suspected TECHNIQUE: Multiaxial CT images of the head were performed without the use of intravenous contrast. A utomated exposure control was utilized for this study. A dose lowering technique was utilized adheri ng to the principles of ALARA. Comparison: None. Findings: Mild mucosal thickening within the right maxillary sinus. The mastoid air cells are clear. The calvarium and skull base are intact. The ventricles and sulci are within normal limits. There is no mass, hematoma, midline shift, or acute infarct. Impression: No acute intracranial abnormality. ACT 112: Negative or not required by law. Electronically signed by: Reuben King M.D. 02/02/2023 11:47 AM
--- NOTE | 2023-02-02 11:56 | Emergency Department Note ---
Impression & Plan Acute CVA (cerebrovascular accident), Hypertension, Stuttering, Weakness, Involuntary trembling, Fall, Headache, Nausea ED Provider Note NAME: JOSE C BETANCUR AGE: 67 SEX: M : 1955 ARRIVES VIA: Ambulance INFORMANT: [Patient][EMS, family] ED PROVIDER(S): [Peter Cárdenas MD] Patient first seen by me at 1115 CHIEF COMPLAINT: Neuro symptoms HISTORY OF PRESENT ILLNESS: The patient is a 67-year-old male who states that at around 915, just over 2 hours ago, he was out hunting. He was in a hut with a propane heater. His grandson was with him. The patient began to feel like the surroundings were off. He felt off balance and he felt things were tilted. He had a hard time standing because both legs, not just one leg, were weak. The patient eventually tried to make his way back to the house but as he stepped down, his leg gave out and he fell forward. He did not strike his head or lose consciousness. He was helped back to the house by his grandson and EMS was called. As per the son who is at the bedside, the patient did not have one-sided weakness. His thinking seems intact however, he is stuttering which is new. The patient admits to the stuttering and states that he feels very shaky. There is a mild headache. There has been some mild nausea. No chest pain or shortness of breath. He was in baseline health earlier today. The patient is on a baby aspirin daily. No other blood thinning agents. PMHx/PSHx/Social Hx: See Below PHYSICAL EXAM: GENERAL: Patient is in no acute distress. HEENT: No acute trauma, normocephalic atraumatic, mucous membranes moist, no nasal congestion. NECK: No stridor, no adenopathy, no meningismus, trachea is midline. LUNGS: Clear to auscultation bilaterally, no wheeze, no rhonchi, breath sounds equal. HEART: Without murmurs gallops or rubs, regular rate and rhythm. ABDOMEN: Soft, nontender, no peritonitis. EXTREMITIES: No cyanosis, full range of motion of all the joints without pain or difficulty. NEUROLOGIC: Oriented x 3, no acute motor or sensory deficits, no focal weakness. No extremity drift or cerebellar dysfunction. No speech slur. He does have a hard time finding his words and does stutter some. No facial droop. He is quite shaky with cerebellar testing but this function is intact. SKIN: No jaundice, no diaphoresis. DIFFERENTIAL DIAGNOSIS: Stroke, dehydration, electrolyte imbalance, car monoxide exposure, medication reaction, dehydration, exhaustion, among others. EMERGENCY DEPARTMENT PROCEDURES: MEDICAL DECISION MAKING: There was no leukocytosis or concerning anemia. There was a normal platelet count. No coagulopathy. Carboxyhemoglobin level was not elevated. No renal failure or significant electrolyte abnormality. No concerning liver enzyme elevation. ECG showed a normal sinus rhythm, no ischemia or dysrhythmia. Cardiac enzyme testing x1 was not consistent with acute cardiac injury. Brain CT showed no acute bleed or mass effect. CT angio of the head neck was performed, no stenosis or clot. On exam, the patient had stuttering speech. He was very shaky and tremulous. He had a hard time finding his words. No extremity drift or true cerebellar dysfunction. He complained of some nausea and a headache. A stroke alert was called. I did speak with the [place] neurologist, Dr. Perez. She did assess the patient via telemedicine. The patient was felt a candidate for TNK, this was given per protocol. I discussed giving the TNK with the patient and his family, there were no contraindications, they were comfortable with the risks discussed. There was a slight delay with giving the TNK as the patient spiked a higher blood pressure. He received 2 doses of IV labetalol and then eventually was placed on a nicardipine drip. Once the blood pressure was within the acceptable range, the TNK was given. As per Dr. Perez, there was a 4-1/2-hour window with this patient. The patient did receive a 500 cc saline bolus. He was given IV Tylenol for headache. The patient did have a repeat noncontrast head CT after the TNK was given as his headache seemed to worsen. The repeat CT did not show any acute bleeding. The patient has made some improvement in how he examines. He seems to be stuttering less. He is less tremulous. He is able to operate his cell phone without difficulty. I did speak with case management, the on-call hospitalist was consulted. The patient is going to require admission, further work-up. He will be initially admitted to the ICU. Of note, the patient's blood pressure is much better controlled since the labetalol and nicardipine drip. Prior/Outside records/notes reviewed: Cardiology note from 06/05/2022 discussing his known coronary artery disease and plans moving forward. ECG per my interpretation: Indication was possible stroke. The ECG shows a normal sinus rhythm with a rate of 68. There is no concerning ST elevation, no PVCs. The QTc is 473. Continuous Cardiac Monitoring per my interpretation: An order was placed for continuous cardiac monitoring. The monitor shows a rate of 83 with normal sinus rhythm. Imaging/x-ray results per my interpretation: Chronic Medical/Social conditions affecting care: Coronary artery disease Care/Management discussed with: Alyse Perez. Case management and the on-call hospitalist. Level of care consideration(s): After review of the information above and other included data: --I believe the patient requires escalation of care to admission Critical Care Note: I have personally spent 62 minutes of critical care time in the direct management of this patient. This includes bedside care, interpretation of diagnostic studies, and testing, discussion with consultants, patient, and family members, and other required patient management activities. This 62 minutes is in excess of all separately billable procedures. 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 Did not have formal testing at time of symptoms but did have COVID antibodies test 04/19/20 positive ([facility]) Chronic back pain RLE radiculopathy Osteoarthritis Hypothyroidism Depression Nonspecific reaction to 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 subsequent negative CXR Dyslipidemia Hypertension CAD (coronary artery disease) stent x1 to LAD (2003) Surgical History History of foot surgery Left great toe History of colonoscopy History of esophagogastroduodenoscopy (EGD) History of cardiac cath 2003 (stent x1), 2016 (no stent) H/O hernia repair Family History Grandfather (Maternal) Coronary heart disease Grandmother (Maternal) Family history of diabetes mellitus Father Family hx of colon cancer Social History Smoking Status: Never smoker Second Hand Exposure: No; Do You Dip or Chew Tobacco: No; Hx Alcohol Use: Yes Alcohol type: wine Hx Substance Use: No Preferred Language: Greek Communication Ability: Effective Insulation Mechanic Required: No Beliefs That Will Affect Care: None marital status: Current Living Situation: Spouse current occupational status: retired current occupation: Psychologist Feels Safe at Home: Yes Assistive Devices: Glasses and Hearing Aid - Bilateral Allergies Allergies Allergy/AdvReac Type Severity Reaction Status Date / Time hydrocodone Allergy Verified 06/05/22 10:09 acetaminophen [From Percocet] AdvReac Verified 06/05/22 10:09 oxycodone [From Percocet] AdvReac Verified 06/05/22 10:09 LORCET Allergy Mild Itching Uncoded 06/05/22 10:09 Home Meds Home Medications Medication Instructions Recorded Confirmed B-complex with vitamin C 1 cap PO HS 05/04/20 02/02/23 aspirin 81 mg tablet,delayed 81 mg PO HS 05/04/20 02/02/23 release (Adult Low Dose Aspirin) cholecalciferol (vitamin D3) 25 1,000 units PO QAM 05/04/20 02/02/23 mcg (1,000 unit) capsule ezetimibe 10 mg tablet (Zetia) 10 mg PO HS 05/04/20 02/02/23 levothyroxine 88 mcg capsule 88 mcg PO QAM 05/04/20 02/02/23 multivitamin (Multiple Vitamins 1 tab PO HS 05/04/20 02/02/23 tablet) omeprazole 20 mg tablet,delayed 20 mg PO QAM 05/04/20 02/02/23 release ranolazine 1,000 mg 1,000 mg PO Q12 05/04/20 02/02/23 tablet,extended release,12 hr rosuvastatin 40 mg tablet (Crestor) 40 mg PO HS 05/04/20 02/02/23 carvedilol 12.5 mg tablet 12.5 mg PO BID 02/02/23 02/02/23 Previous Rx's Medication Instructions Recorded nitroglycerin 0.4 mg sublingual 0.4 mg sublingual Q5M PRN chest 06/05/22 tablet pain #25 tabs Results & Data (ED) Vital Signs Vital Signs - 24 hr 02/02/23 11:00 02/02/23 11:30 02/02/23 11:48 Temperature 36.6 C Temperature Source Oral Pulse Rate 87 84 83 Pulse Rate [Apical] Pulse Rate from SpO2 Sensor 83 Respiratory Rate 17 17 19 Respiratory Effort / Characteristics Non-Labored Respiratory Depth Normal Respiratory Pattern Regular Blood Pressure 148/86 H 181/111 H 173/83 H Blood Pressure [Right Arm] Blood Pressure Mean 106 134 113 Blood Pressure Mean [Right Arm] Blood Pressure Position [Right Arm] Pulse Oximetry 94 98 97 Oxygen Delivery Method Room Air Room Air Room Air Sepsis Recent Fever Within 48 Hours No Sepsis New/Unexplained Change in Mental Status N/A Sepsis Action Taken by Nursing No Action Required 02/02/23 11:53 02/02/23 12:00 02/02/23 12:15 Temperature Temperature Source Pulse Rate 83 84 85 Pulse Rate [Apical] Pulse Rate from SpO2 Sensor 84 Respiratory Rate 17 19 Respiratory Effort / Characteristics Respiratory Depth Respiratory Pattern Blood Pressure 161/88 H Blood Pressure [Right Arm] Blood Pressure Mean 112 Blood Pressure Mean [Right Arm] Blood Pressure Position [Right Arm] Pulse Oximetry 96 Oxygen Delivery Method Room Air Sepsis Recent Fever Within 48 Hours Sepsis New/Unexplained Change in Mental Status Sepsis Action Taken by Nursing 02/02/23 12:18 02/02/23 12:22 02/02/23 12:22 Temperature Temperature Source Pulse Rate 83 82 Pulse Rate [Apical] 74 Pulse Rate from SpO2 Sensor 81 Respiratory Rate 17 16 16 Respiratory Effort / Characteristics Non-Labored Spontaneous Respiratory Depth Normal Respiratory Pattern Regular Blood Pressure 188/91 H 180/84 H Blood Pressure [Right Arm] 168/90 H Blood Pressure Mean 123 116 Blood Pressure Mean [Right Arm] 116 Blood Pressure Position [Right Arm] Sitting Pulse Oximetry 98 96 99 Oxygen Delivery Method Room Air Room Air Room Air Sepsis Recent Fever Within 48 Hours Sepsis New/Unexplained Change in Mental Status Sepsis Action Taken by Nursing 02/02/23 12:25 02/02/23 12:30 02/02/23 12:37 Temperature Temperature Source Pulse Rate 80 75 75 Pulse Rate [Apical] Pulse Rate from SpO2 Sensor 80 74 74 Respiratory Rate 16 18 14 Respiratory Effort / Characteristics Respiratory Depth Respiratory Pattern Blood Pressure 162/61 H 168/90 H 171/91 H Blood Pressure [Right Arm] Blood Pressure Mean 94 116 117 Blood Pressure Mean [Right Arm] Blood Pressure Position [Right Arm] Pulse Oximetry 95 97 96 Oxygen Delivery Method Room Air Room Air Room Air Sepsis Recent Fever Within 48 Hours Sepsis New/Unexplained Change in Mental Status Sepsis Action Taken by Nursing 02/02/23 12:45 02/02/23 12:46 02/02/23 12:49 Temperature Temperature Source Pulse Rate 76 71 76 Pulse Rate [Apical] Pulse Rate from SpO2 Sensor Respiratory Rate 16 Respiratory Effort / Characteristics Respiratory Depth Respiratory Pattern Blood Pressure 164/118 H 164/118 H 164/118 H Blood Pressure [Right Arm] Blood Pressure Mean 133 Blood Pressure Mean [Right Arm] Blood Pressure Position [Right Arm] Pulse Oximetry 98 Oxygen Delivery Method Room Air Sepsis Recent Fever Within 48 Hours Sepsis New/Unexplained Change in Mental Status Sepsis Action Taken by Nursing 02/02/23 12:59 02/02/23 13:00 02/02/23 13:07 Temperature Temperature Source Pulse Rate 70 74 77 Pulse Rate [Apical] Pulse Rate from SpO2 Sensor 72 73 Respiratory Rate 16 14 Respiratory Effort / Characteristics Respiratory Depth Respiratory Pattern Blood Pressure 177/96 H 182/95 H 182/95 H Blood Pressure [Right Arm] Blood Pressure Mean 123 124 Blood Pressure Mean [Right Arm] Blood Pressure Position [Right Arm] Pulse Oximetry 97 99 Oxygen Delivery Method Room Air Sepsis Recent Fever Within 48 Hours Sepsis New/Unexplained Change in Mental Status Sepsis Action Taken by Nursing 02/02/23 13:15 02/02/23 13:29 02/02/23 13:30 Temperature Temperature Source Pulse Rate 76 77 77 Pulse Rate [Apical] Pulse Rate from SpO2 Sensor 76 78 77 Respiratory Rate 15 16 16 Respiratory Effort / Characteristics Respiratory Depth Respiratory Pattern Blood Pressure 176/96 H 173/91 H 156/77 H Blood Pressure [Right Arm] Blood Pressure Mean 122 118 103 Blood Pressure Mean [Right Arm] Blood Pressure Position [Right Arm] Pulse Oximetry 95 97 97 Oxygen Delivery Method Room Air Room Air Room Air Sepsis Recent Fever Within 48 Hours Sepsis New/Unexplained Change in Mental Status Sepsis Action Taken by Care Home Medications Current Medication List: was personally reviewed by me Laboratory Data Attestation: I reviewed the patient's lab results. 02/02/23 11:20 02/02/23 11:20 Lab Results 02/02/23 02/02/23 Range/Units 11:20 12:21 WBC 5.61 (4.8-10.8) K/ul RBC 4.56 L (4.70-6.10) M/uL Hgb 13.8 L (14.0-18.0) g/dl Hct 40.6 L (42.0-52.0) % MCV 89.0 (80.0-100.0) fL MCH 30.3 (25.0-34.0) pg MCHC 34.0 (32.0-36.0) g/dL RDW Std Deviation 43.3 (36.4-46.3) fL RDW Coeff of [place] 13.2 (11.5-14.5) % Plt Count 164 (130-400) K/uL MPV 8.7 L (9.4-12.4) fL Immature Gran % (Auto) 1.8 % Neut % (Auto) 63.6 % Lymph % (Auto) 17.5 % [place] % (Auto) 14.4 % Eos % (Auto) 2.3 % Baso % (Auto) 0.4 % Neut # (Auto) 3.57 (1.40-6.50) K/uL Lymph # (Auto) 0.98 L (1.20-3.40) K/uL [place] # (Auto) 0.81 H (0.11-0.59) K/uL Eos # (Auto) 0.13 (0.00-0.50) K/uL Baso # (Auto) 0.02 (0.00-0.20) K/uL Immature Gran # (Auto) 0.10 (0.01-0.20) K/uL PT 10.9 (9.0-12.0) Seconds INR 1.0 (0.9-1.1) APTT 25.1 (21.0-31.0) Seconds PTT Ratio 0.9 Carboxyhemoglobin 1.1 % THgb Sodium 137 (136-145) mmol/L Potassium 4.3 (3.5-5.1) mmol/L Chloride 103 (98-107) mmol/L Carbon Dioxide 25 (21-32) mmol/L Anion Gap 9 (3-11) BUN 17 (6-23) mg/dl Creatinine 1.01 (0.6-1.4) mg/dl Est Cr Clr Drug Dosing 84.2 ml/min Est GFR ( Amer) 88.2 ml/min Est GFR (Non-Af Amer) 76.1 ml/min BUN/Creatinine Ratio 16.8 (10-20) Glucose 107 H (70-99(Fasting)) mg/dl Calcium 9.3 (8.6-10.3) mg/dl Magnesium 1.7 (1.7-2.4) mg/dl Total Bilirubin 0.5 (0.2-1.0) mg/dl AST 18 (13-39) U/L ALT 21 (7-52) U/L Alkaline Phosphatase 59 (34-104) U/L Troponin I High Sens 3.7 (0-20) pg/ml Total Protein 7.5 (6.0-8.3) gm/dl Albumin 4.3 (3.4-5.0) gm/dl Globulin 3.2 (2.5-4.0) gm/dl Albumin/Globulin Ratio 1.3 (0.9-2) Administered Medications Nicardipine HCl 25 mg/ Sodium (Chloride) 250 mls @ 75 mls/hr IV .Q3H20M [facility]; Protocol Stop: 03/04/23 13:14 Last Titration: 02/02/23 16:03 Dose: 7.5 mg/hr, 75 mls/hr Documented By: Titration: 02/02/23 13:51 Dose: 5 mg/hr, 50 mls/hr Documented By: Titration: 02/02/23 13:39 Dose: 7.5 mg/hr, 75 mls/hr Documented By: Admin: 02/02/23 13:22 Dose: 5 mg/hr, 50 mls/hr Documented By: LORIN Co-signed By: TOY Discontinued Medications Gadobutrol (Gadobutrol 30ml Vial) 10 ml IV ONCE ONE Stop: 02/02/23 16:04 Last Admin: 02/02/23 16:05 Dose: 10 ml Documented By: DONNY Sodium Chloride (Nss) 500 mls @ 999 mls/hr IV .Q31M ONE Stop: 02/02/23 11:59 Last Infusion: 02/02/23 14:46 Dose: Infused Documented By: Admin: 02/02/23 12:53 Dose: 999 mls/hr Documented By: LORIN Tenecteplase 25 mg/ Syringe 5 mls @ 60 mls/min IV NOW ONE; Protocol Stop: 02/02/23 12:27 Last Admin: 02/02/23 12:24 Dose: 60 mls/min Documented By: LORIN Co-signed By: MONICA Acetaminophen (Ofirmev) 1,000 mg in 100 mls @ 400 mls/hr IV NOW STA Stop: 02/02/23 13:39 Last Admin: 02/02/23 14:47 Dose: Not Given Documented By: RAJIV Ioversol (Optiray 320 125ml) 115 ml IV ONCE ONE Stop: 02/02/23 11:34 Last Admin: 02/02/23 11:33 Dose: 115 ml Documented By: JOSE DAVID Labetalol HCl (Labetalol Hcl Iv 5 Mg/Ml 20ml) 10 mg IV NOW STA Stop: 02/02/23 12:20 Last Admin: 02/02/23 12:22 Dose: 10 mg Documented By: LORIN Co-signed By: MONICA Labetalol HCl (Labetalol Hcl Iv 5 Mg/Ml 20ml) 10 mg IV NOW STA Stop: 02/02/23 12:48 Last Admin: 02/02/23 12:49 Dose: 10 mg Documented By: LORIN Co-signed By: MAN Miscellaneous (Stat Iv/Im) 1 each N/A NOW STA Stop: 02/02/23 12:17 Last Admin: 02/02/23 14:46 Dose: Not Given Documented By: RAJIV Sodium Chloride (Sodium Chloride 0.9% 10ml Flush) 20 ml IV NOW STA Stop: 02/02/23 12:17 Last Admin: 02/02/23 14:47 Dose: Not Given Documented By: RAJIV Imaging Data Radiologist's Impression: Head CT 02/02/23 11:[address] DOSE: HISTORY: neuro deficit, acute stroke suspected TECHNIQUE: Multiaxial CT images of the head were performed without the use of intravenous contrast. Automated exposure control was utilized for this study. A dose lowering technique was utilized adhering to the principles of ALARA. Comparison: None. Findings: Mild mucosal thickening within the right maxillary sinus. The mastoid air cells are clear. The calvarium and skull base are intact. The ventricles and sulci are within normal limits. There is no mass, hematoma, midline shift, or acute infarct. Impression: No acute intracranial abnormality. ACT 112: Negative or not required by law. Electronically signed by: Reuben King M.D. 02/02/2023 11:47 AM Head CTA 02/02/23 11:29 HEAD & NECK CTA HISTORY: neuro deficit, acute stroke suspected TECHNIQUE: Multiaxial CT images of the head were performed following the intravenous administration of contrast to evaluate the major cerebral vessels. Multiaxial CT images of the neck were also performed following the intravenous administration of contrast to evaluate the major cervical vessels. 3D/MIP images were also obtained. Sagittal and coronal reformats were reviewed. A dose lowering technique was utilized adhering to the principles of ALARA. COMPARISON: Noncontrast head CT 02/02/2023. FINDINGS: There is no mass, hematoma, midline shift, or acute infarct. Visualized intracranial internal carotid arteries, distal vertebral arteries, and basilar artery are widely patent. There is no significant stenosis, occlusion, or aneurysm seen within the bilateral ACAs, MCAs, or hand tube bender. Mild calcified plaque within the bilateral carotid siphons. The major dural venous sinuses are patent. The aortic arch and proximal great vessels are widely patent. There is no significant stenosis, occlusion, or dissection identified within the bilateral common carotid, internal carotid, or vertebral arteries. Mild calcified plaque within the bilateral carotid bulbs. IMPRESSION: 1. No significant stenosis, occlusion, or aneurysm within the [place]. 2. No significant stenosis, occlusion, or dissection identified within the carotid or vertebral arteries. ACT 112: Negative or not required by law. Electronically signed by: Reuben King M.D. 02/02/2023 12:07 PM Neck CTA 02/02/23 11:29 HEAD & NECK CTA HISTORY: neuro deficit, acute stroke suspected TECHNIQUE: Multiaxial CT images of the head were performed following the intravenous administration of contrast to evaluate the major cerebral vessels. Multiaxial CT images of the neck were also performed following the intravenous administration of contrast to evaluate the major cervical vessels. 3D/MIP images were also obtained. Sagittal and coronal reformats were reviewed. A dose lowering technique was utilized adhering to the principles of ALARA. COMPARISON: Noncontrast head CT 02/02/2023. FINDINGS: There is no mass, hematoma, midline shift, or acute infarct. Visualized intracranial internal carotid arteries, distal vertebral arteries, and basilar artery are widely patent. There is no significant stenosis, occlusion, or aneurysm seen within the bilateral ACAs, MCAs, or hand tube bender. Mild calcified plaque within the bilateral carotid siphons. The major dural venous sinuses are patent. The aortic arch and proximal great vessels are widely patent. There is no significant stenosis, occlusion, or dissection identified within the bilateral common carotid, internal carotid, or vertebral arteries. Mild calcified plaque within the bilateral carotid bulbs. IMPRESSION: 1. No significant stenosis, occlusion, or aneurysm within the [place]. 2. No significant stenosis, occlusion, or dissection identified within the carotid or vertebral arteries. ACT 112: Negative or not required by law. Electronically signed by: Reuben King M.D. 02/02/2023 12:[address] 02/02/23 13:[address] DOSE: 625.8 mGy.cm HISTORY: headache, s/p tpa TECHNIQUE: Multiaxial CT images of the head were performed without the use of intravenous contrast. Automated exposure control was utilized for this study. A dose lowering technique was utilized adhering to the principles of ALARA. Comparison: Head CT 02/02/2023. Findings: Mild mucosal thickening within the right maxillary sinus. The mastoid air cells are clear. The calvarium and skull base are intact. There is residual contrast within the brain from the recent head CTA. This results in suboptimal evaluation for intracranial hemorrhage. However, there is no definite mass, hematoma, midline shift, or acute infarct. The ventricles and sulci are within normal limits. Impression: No definite acute intracranial abnormality. ACT 112: Negative or not required by law. Electronically signed by: Reuben King M.D. 02/02/2023 2:18 PM Discharge Plan Visit Data Chief Complaint: Neuro Symptoms/Deficit Stated Complaint: FALL, DIFFICULTY AMBULATING, FEELS OFF ED Provider: Peter Cárdenas Discharge Problem: Acute CVA (cerebrovascular accident), Hypertension, Stuttering, Weakness, Involuntary trembling, Fall, Headache, Nausea Patient Disposition: Admitted As Inpatient Condition: Serious Discharge Instructions Interventions: ED Discharge Assessment Last Done: 02/02/23 14:23 Discharge Problem: Hypertension Qualifiers: Hypertension type: unspecified Qualified Code(s): I10 - Essential (primary) hypertension Fall Qualifiers: Encounter type: initial encounter Qualified Code(s): W19.XXXA - Unspecified fall, initial encounter Headache Qualifiers: Headache type: unspecified Headache chronicity pattern: acute headache I ntractability: not intractable Qualified Code(s): R51.9 - Headache, unspecified
[2023-02-02 11:57] LABS: Albumin Globulin Ratio 1.3 (0.9-2); Albumin Level 4.3 gm/dl (3.4-5.0); BUN Creatinine Ratio 16.8 (10-20); Bilirubin,Total 0.5 mg/dl (0.2-1.0); Calcium 9.3 mg/dl (8.6-10.3); Creatinine Clr Calc Pharmacy 84.2 ml/min; Est GFR (African American) 88.2 ml/min; Est GFR (Non-African American) 76.1 ml/min; Globulin 3.2 gm/dl (2.5-4.0); Magnesium 1.7 mg/dl (1.7-2.4); Potassium 4.3 mmol/L (3.5-5.1); Total Protein 7.5 gm/dl (6.0-8.3)
[2023-02-02 12:03] LABS: Troponin I High Sensitivity 3.7 pg/ml (0-20)
[2023-02-02 12:08] LABS: Partial Thromboplastin Ratio 0.9; Partial Thromboplastin Time 25.1 Seconds (21.0-31.0); Prothrombin Time 10.9 Seconds (9.0-12.0)
--- NOTE | 2023-02-02 12:09 | CT Scan Report ---
HEAD & NECK CTA HISTORY: neuro deficit, acute stroke suspected TECHNIQUE: Multiaxial CT images of the head were performed following the intravenous administration o f contrast to evaluate the major cerebral vessels. Multiaxial CT images of the neck were also perform ed following the intravenous administration of contrast to evaluate the major cervical vessels. 3D/NH P images were also obtained. Sagittal and coronal reformats were reviewed. A dose lowering technique was utilized adhering to the principles of ALARA. COMPARISON: Noncontrast head CT 02/02/2023. FINDINGS: There is no mass, hematoma, midline shift, or acute infarct. Visualized intracranial internal carotid arteries, distal vertebral arteries, and basilar artery are widely patent. There is no significant s tenosis, occlusion, or aneurysm seen within the bilateral ACAs, MCAs, or peer specialist. Mild calcified plaque within the bilateral carotid siphons. The major dural venous sinuses are patent. The aortic arch and proximal great vessels are widely patent. There is no significant stenosis, occ lusion, or dissection identified within the bilateral common carotid, internal carotid, or vertebral arteries. Mild calcified plaque within the bilateral carotid bulbs. IMPRESSION: 1. No significant stenosis, occlusion, or aneurysm within the [place]. 2. No significant stenosis, occlusion, or dissection identified within the carotid or vertebral arter ies. ACT 112: Negative or not required by law. Electronically signed by: Reuben King M.D. 02/02/2023 12:07 PM
--- NOTE | 2023-02-02 12:09 | CT Scan Report ---
HEAD & NECK CTA HISTORY: neuro deficit, acute stroke suspected TECHNIQUE: Multiaxial CT images of the head were performed following the intravenous administration o f contrast to evaluate the major cerebral vessels. Multiaxial CT images of the neck were also perform ed following the intravenous administration of contrast to evaluate the major cervical vessels. 3D/AR P images were also obtained. Sagittal and coronal reformats were reviewed. A dose lowering technique was utilized adhering to the principles of ALARA. COMPARISON: Noncontrast head CT 02/02/2023. FINDINGS: There is no mass, hematoma, midline shift, or acute infarct. Visualized intracranial internal carotid arteries, distal vertebral arteries, and basilar artery are widely patent. There is no significant s tenosis, occlusion, or aneurysm seen within the bilateral ACAs, MCAs, or dental hygiene teacher. Mild calcified plaque within the bilateral carotid siphons. The major dural venous sinuses are patent. The aortic arch and proximal great vessels are widely patent. There is no significant stenosis, occ lusion, or dissection identified within the bilateral common carotid, internal carotid, or vertebral arteries. Mild calcified plaque within the bilateral carotid bulbs. IMPRESSION: 1. No significant stenosis, occlusion, or aneurysm within the [place]. 2. No significant stenosis, occlusion, or dissection identified within the carotid or vertebral arter ies. ACT 112: Negative or not required by law. Electronically signed by: Reuben King M.D. 02/02/2023 12:07 PM
[2023-02-02] MEDS ORDERED: SODIUM CHLORIDE 0.9% 10ML FLUSH IV STA (12:16)
[2023-02-02] MEDS ORDERED: STAT IV/IM STA (12:16)
[2023-02-02] MEDS ORDERED: LABETALOL HCL IV 5 MG/ML 20ML IV STA ×2 (12:19→12:47)
[2023-02-02] MEDS ORDERED: TENECTEPLASE 25 MG in SYRINGE 0 ML IV ONE (12:26)
[2023-02-02] MEDS ORDERED: No Aspirin within 24hrs of THROMBOLYTIC-Stroke PO SCH (12:30)
[2023-02-02] MEDS ORDERED: STAT IV Infusion **Titration per Protocol STA (13:06)
[2023-02-02] MEDS: niCARdipine 25 MG in SODIUM CHLORIDE 0.9% 240 ML IV SCH ×2 (13:22→17:49)
[2023-02-02] MEDS ORDERED: ACETAMINOPHEN 1,000 MG/100 ML VIAL IV STA (13:25)
--- NOTE | 2023-02-02 14:20 | CT Scan Report ---
HEAD CT NONCONTRAST CT DOSE: 625.8 mGy.cm HISTORY: headache, s/p tpa TECHNIQUE: Multiaxial CT images of the head were performed without the use of intravenous contrast. A utomated exposure control was utilized for this study. A dose lowering technique was utilized adheri ng to the principles of ALARA. Comparison: Head CT 02/02/2023. Findings: Mild mucosal thickening within the right maxillary sinus. The mastoid air cells are clear. The calvarium and skull base are intact. There is residual contrast within the brain from the recent head CTA. This results in suboptimal evaluation for intracranial hemorrhage. However, there is no def inite mass, hematoma, midline shift, or acute infarct. The ventricles and sulci are within normal [place] its. Impression: No definite acute intracranial abnormality. ACT 112: Negative or not required by law. Electronically signed by: Reuben King M.D. 02/02/2023 2:18 PM
--- NOTE | 2023-02-02 14:28 | History & Physical Report ---
Date of Service February 02, 2023 Assessment & Plan (1) Stroke-like symptoms: (2) CAD (coronary artery disease): (3) Hypertension: (4) Dyslipidemia: Plan This is a 67-year-old male who has significant past medical history of CAD, HTN, HLD, hypothyroidism, hyperuricemia, IPMN, GERD, depression and history of alcoholism who presents to ED via EMS due to feeling like his, "surroundings were off." Stroke like sx - pt reported visual change, difficulty getting words out per ED provider s/p [place]NK [place] [facility] [place] NIH 0, TNK given @1224 pt received IV Labetalol x 2 and started on nicardipine gtt in ED admit to ICU consult veneer clipper helper Dr. Phelps for Post TNK management will hold home BP meds of coreg, ranolazine while on nicardipine hold ASA until repeat CT negative tomorrow pt already on high intensity statin obtain MRI, echo, PT/OT consult neuro, Dr. Estefani hercules initially concerning for CO poisoning but carboxyhemoglobin normal CAD HTN elevated in ED on coreg, ranolazine at home, will hold while on nicardipine gtt on ASA, Statin as well follows Dr. Bess, [facility] cards HLD chronic, stable continue statin Hypothyroidism Chronic, stable continue levothyroxine DVT ppx: SCDS 2/2 pt given TNK FULL CODE PCP: Jem/HITESH Dispo: admit to ICU for TNK protocol Pt was seen and examined in collaboration with Dr. Winters, please see addendum History of Present Illness Chief Complaint: Visual changes and word finding difficulty starting at 9:15 am Primary Care Provider: Moise Parish MD This is a 67-year-old male who has significant past medical history of CAD, HTN, HLD, hypothyroidism, hyperuricemia, IPMN, GERD, depression and history of alcoholism who presents to ED via EMS due to feeling like his, "surroundings were off." He was out hunting this morning when approximately at 915 he was sitting in a hunting blind with a propane heater and felt like his, "surroundings were off." He felt off balance and felt like something was going on with his vision. He then tried to get out of the blind when he stumbled and fell. He felt generally weak. His grandson was with him. His grandson helped him to the camp where EMS was summoned. He did not lose consciousness and there was no report of any slurred speech, facial droop or unilateral weakness. According to history provided by ED physician patient was having some word finding difficulties as it was taking him an extended duration of time to figure out what he wanted to say. Currently he complains of a bilateral frontal/sinus headache which started en route via EMS. He denies any prior history of migraine or headaches in the past. He denies any similar symptoms to this in the past. The patient overall felt very shaky and tremulous. He did take his morning medications. His last dose of aspirin was last evening as he takes this at bedtime. He does admit to prior history of CAD with a stent placement. He d enies any recent illness, fever, chills, sweats, lightheadedness, dizziness, chest pain, shortness of breath, cough, nausea, vomiting or abdominal pain. Family members are at bedside. Patient was significantly hypertensive in ED. He required 2 rounds of IV labetalol with minimal improvement and therefore was started on a nicardipine drip due to administration of TNK. Telemetry neurology was consulted in ED who recommended TNK. Patient's symptoms have significantly improved. Family member at bedside states only new medication is he was recently taken off Bystolic and placed on carvedilol. Allergies Allergy/AdvReac Type Severity Reaction Status Date / Time hydrocodone Allergy Verified 06/05/22 10:09 acetaminophen [From Percocet] AdvReac Verified 06/05/22 10:09 oxycodone [From Percocet] AdvReac Verified 06/05/22 10:09 LORCET Allergy Mild Itching Uncoded 06/05/22 10:09 Home Medications Medication Instructions Recorded Confirmed Type B-complex with vitamin C 1 cap PO HS 05/04/20 02/02/23 History aspirin 81 mg tablet,delayed 81 mg PO HS 05/04/20 02/02/23 History release (Adult Low Dose Aspirin) cholecalciferol (vitamin D3) 25 1,000 units PO QAM 05/04/20 02/02/23 History mcg (1,000 unit) capsule ezetimibe 10 mg tablet (Zetia) 10 mg PO HS 05/04/20 02/02/23 History levothyroxine 88 mcg capsule 88 mcg PO QAM 05/04/20 02/02/23 History multivitamin (Multiple Vitamins 1 tab PO HS 05/04/20 02/02/23 History tablet) omeprazole 20 mg tablet,delayed 20 mg PO QAM 05/04/20 02/02/23 History release ranolazine 1,000 mg 1,000 mg PO Q12 05/04/20 02/02/23 History tablet,extended release,12 hr rosuvastatin 40 mg tablet (Crestor) 40 mg PO HS 05/04/20 02/02/23 History nitroglycerin 0.4 mg sublingual 0.4 mg sublingual Q5M PRN chest 06/05/22 02/02/23 Rx tablet pain #25 tabs carvedilol 12.5 mg tablet 12.5 mg PO BID 02/02/23 02/02/23 History Past Med/Surg History Medical History Rib fracture Mechanical fall 04/17/19 > Acute/subacute nondisplaced right lateral 7th rib fracture per 05/06/20 CT > pt reports residual rib pain but improving 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 Did not have formal testing at time of symptoms but did have COVID antibodies test 04/19/20 positive ([facility]) Chronic back pain RLE radiculopathy Osteoarthritis Hypothyroidism Depression Nonspecific reaction to 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 subsequent negative CXR Dyslipidemia Hypertension CAD (coronary artery disease) stent x1 to LAD (2003) Surgical History History of foot surgery Left great toe History of colonoscopy History of esophagogastroduodenoscopy (EGD) History of cardiac cath 2003 (stent x1), 2015 (no stent) H/O hernia repair Family History Grandfather (Maternal) Coronary heart disease Grandmother (Maternal) Family history of diabetes mellitus Father Family hx of colon cancer Social History Smoking Status: Never smoker Second Hand Exposure: No; Do You Dip or Chew Tobacco: No; Tobacco Cessation Education Requested by Patient: No Hx Alcohol Use: Yes Alcohol type: wine Hx Substance Use: No Preferred Language: Swedish Communication Ability: Effective Manager Critical Care Unit Required: No Beliefs That Will Affect Care: None marital status: Current Living Situation: Spouse current occupational status: retired current occupation: Psychologist Other Information That Helps Us Care for You: No Feels Safe at Home: Yes Safety Concerns: Feels Safe At This Time Assistive Devices: Glasses and Hearing Aid - Bilateral Review of Systems Review of Systems: All systems reviewed & are unremarkable except as noted in HPI & below Physical Exam Physical Exam: Constitutional: WD/WN, vitals as above, NAD, sitting up in bed, pleasant, conversing easily Head: Normocephalic, Atraumatic Eyes: PERRL, conjunctivae normal, anicteric sclerae ENMT: external ear and nose normal, oropharynx normal Neck: trachea midline, no thyromegaly normal visual inspection Respiratory: normal respiratory effort, lungs clear to auscultation, no wheeze, rales, rhonchi. Normal insp/exp effort, no accessory muscle use Cardiovascular: RRR, 1/6 CHERELLE noted rusb, no edema Vessels: no JVD or carotid bruit Chest: normal inspection of chest Abdomen: normal bowel sounds, soft, nontender, no hepatosplenomegaly Musculoskeletal: no cyanosis or clubbing, extremities motor strength 5/5 Skin: no rashes, warm and dry normal turgor Neurologic: PERRL, EOMI, accommodation nl, no face palsy, no dysarthria CN's II-XI intact bilaterally and moves all extremities Psychiatric: A+Ox3, euthymic affect Lymphatic: no cervical or axillary lymphadenopathy : deferred Results & Data Results & Data Vital Signs (Past 12 Hours) Vital Signs Temp Pulse Pulse Resp BP BP Pulse Ox 02/02/23 13:29 77 16 173/91 H 97 02/02/23 13:15 76 15 176/96 H 95 02/02/23 13:07 77 182/95 H 02/02/23 13:00 74 14 182/95 H 99 02/02/23 12:59 70 16 177/96 H 97 02/02/23 12:49 76 164/118 H 02/02/23 12:46 71 164/118 H 02/02/23 12:45 76 16 164/118 H 98 02/02/23 12:37 75 14 171/91 H 96 02/02/23 12:30 75 18 168/90 H 97 02/02/23 12:25 80 16 162/61 H 95 02/02/23 12:22 82 16 180/84 H 99 02/02/23 12:22 74 16 168/90 H 96 02/02/23 12:18 83 17 188/91 H 98 02/02/23 12:15 85 19 02/02/23 12:00 84 17 161/88 H 96 02/02/23 11:53 83 02/02/23 11:48 83 19 173/83 H 97 02/02/23 11:30 84 17 181/111 H 98 02/02/23 11:00 36.6 C 87 17 148/86 H 94 O2 Del Method 02/02/23 13:29 Room Air 02/02/23 13:15 Room Air 02/02/23 13:07 02/02/23 13:00 02/02/23 12:59 Room Air 02/02/23 12:49 02/02/23 12:46 02/02/23 12:45 Room Air 02/02/23 12:37 Room Air 02/02/23 12:30 Room Air 02/02/23 12:25 Room Air 02/02/23 12:22 Room Air 02/02/23 12:22 Room Air 02/02/23 12:18 Room Air 02/02/23 12:15 02/02/23 12:00 Room Air 02/02/23 11:53 02/02/23 11:48 Room Air 02/02/23 11:30 Room Air 02/02/23 11:00 Room Air Diagnostic Findings Head CT 02/02/23 11:[address] DOSE: HISTORY: neuro deficit, acute stroke suspected TECHNIQUE: Multiaxial CT images of the head were performed without the use of intravenous contrast. Automated exposure control was utilized for this study. A dose lowering technique was utilized adhering to the principles of ALARA. Comparison: None. Findings: Mild mucosal thickening within the right maxillary sinus. The mastoid air cells are clear. The calvarium and skull base are intact. The ventricles and sulci are within normal limits. There is no mass, hematoma, midline shift, or acute infarct. Impression: No acute intracranial abnormality. ACT 112: Negative or not required by law. Electronically signed by: Reuben King M.D. 02/02/2023 11:47 AM Head CTA 02/02/23 11:29 HEAD & NECK CTA HISTORY: neuro deficit, acute stroke suspected TECHNIQUE: Multiaxial CT images of the head were performed following the intravenous administration of contrast to evaluate the major cerebral vessels. Multiaxial CT images of the neck were also performed following the intravenous administration of contrast to evaluate the major cervical vessels. 3D/MIP images were also obtained. Sagittal and coronal reformats were reviewed. A dose lowering technique was utilized adhering to the principles of ALARA. COMPARISON: Noncontrast head CT 02/02/2023. FINDINGS: There is no mass, hematoma, midline shift, or acute infarct. Visualized intracranial internal carotid arteries, distal vertebral arteries, and basilar artery are widely patent. There is no significant stenosis, occlusion, or aneurysm seen within the bilateral ACAs, MCAs, or scientific specialist. Mild calcified plaque within the bilateral carotid siphons. The major dural venous sinuses are patent. The aortic arch and proximal great vessels are widely patent. There is no significant stenosis, occlusion, or dissection identified within the bilateral common carotid, internal carotid, or vertebral arteries. Mild calcified plaque within the bilateral carotid bulbs. IMPRESSION: 1. No significant stenosis, occlusion, or aneurysm within the [place]. 2. No significant stenosis, occlusion, or dissection identified within the carotid or vertebral arteries. ACT 112: Negative or not required by law. Electronically signed by: Reuben King M.D. 02/02/2023 12:07 PM Neck CTA 02/02/23 11:29 HEAD & NECK CTA HISTORY: neuro deficit, acute stroke suspected TECHNIQUE: Multiaxial CT images of the head were performed following the intrave nous administration of contrast to evaluate the major cerebral vessels. Multiaxial CT images of the neck were also performed following the intravenous administration of contrast to evaluate the major cervical vessels. 3D/MIP images were also obtained. Sagittal and coronal reformats were reviewed. A dose lowering technique was utilized adhering to the principles of ALARA. COMPARISON: Noncontrast head CT 02/02/2023. FINDINGS: There is no mass, hematoma, midline shift, or acute infarct. Visualized intracranial internal carotid arteries, distal vertebral arteries, and basilar artery are widely patent. There is no significant stenosis, occlusion, or aneurysm seen within the bilateral ACAs, MCAs, or scientific specialist. Mild calcified plaque within the bilateral carotid siphons. The major dural venous sinuses are patent. The aortic arch and proximal great vessels are widely patent. There is no significant stenosis, occlusion, or dissection identified within the bilateral common carotid, internal carotid, or vertebral arteries. Mild calcified plaque within the bilateral carotid bulbs. IMPRESSION: 1. No significant stenosis, occlusion, or aneurysm within the [place]. 2. No significant stenosis, occlusion, or dissection identified within the carotid or vertebral arteries. ACT 112: Negative or not required by law. Electronically signed by: Reuben King M.D. 02/02/2023 12:[address] 02/02/23 13:[address] DOSE: 625.8 mGy.cm HISTORY: headache, s/p tpa TECHNIQUE: Multiaxial CT images of the head were performed without the use of intravenous contrast. Automated exposure control was utilized for this study. A dose lowering technique was utilized adhering to the principles of ALARA. Comparison: Head CT 02/02/2023. Findings: Mild mucosal thickening within the right maxillary sinus. The mastoid air cells are clear. The calvarium and skull base are intact. There is residual contrast within the brain from the recent head CTA. This results in suboptimal evaluation for intracranial hemorrhage. However, there is no definite mass, hematoma, midline shift, or acute infarct. The ventricles and sulci are within normal limits. Impression: No definite acute intracranial abnormality. ACT 112: Negative or not required by law. Electronically signed by: Reuben King M.D. 02/02/2023 2:18 PM Medications Administered Medication List Nicardipine HCl 25 mg/ Sodium (Chloride) 250 mls @ 50 mls/hr IV .Q5H CARLO; Protocol Stop: 03/04/23 13:14 Last Titration: 02/02/23 13:51 Dose: 5 mg/hr, 50 mls/hr Documented By: Titration: 02/02/23 13:39 Dose: 7.5 mg/hr, 75 mls/hr Documented By: Admin: 02/02/23 13:22 Dose: 5 mg/hr, 50 mls/hr Documented By: LORIN Co-signed By: TOY Discontinued Medications Sodium Chloride (Nss) 500 mls @ 999 mls/hr IV .Q31M ONE Stop: 02/02/23 11:59 Last Admin: 02/02/23 12:53 Dose: 999 mls/hr Documented By: LORIN Tenecteplase 25 mg/ Syringe 5 mls @ 60 mls/min IV NOW ONE; Protocol Stop: 02/02/23 12:27 Last Admin: 02/02/23 12:24 Dose: 60 mls/min Documented By: LORIN Co-signed By: MONICA Ioversol (Optiray 320 125ml) 115 ml IV ONCE ONE Stop: 02/02/23 11:34 Last Admin: 02/02/23 11:33 Dose: 115 ml Documented By: JOSE DAVID Labetalol HCl (Labetalol Hcl Iv 5 Mg/Ml 20ml) 10 mg IV NOW STA Stop: 02/02/23 12:20 Last Admin: 02/02/23 12:22 Dose: 10 mg Documented By: LORIN Co-signed By: MONICA Labetalol HCl (Labetalol Hcl Iv 5 Mg/Ml 20ml) 10 mg IV NOW STA Stop: 02/02/23 12:48 Last Admin: 02/02/23 12:49 Dose: 10 mg Documented By: LORIN Co-signed By: MAN ECG Rate (beats per minute): 86 Rhythm: normal sinus Additional Comments: no st t wave changes COVID-19 Results Results COVID-19 Adm Lab Results: RBC 4.56 M/uL (4.70-6.10) L 02/02/23 WBC 5.61 K/ul (4.8-10.8) 02/02/23 Hgb 13.8 g/dl (14.0-18.0) L 02/02/23 Hct 40.6 % (42.0-52.0) L 02/02/23 Plt Count 164 K/uL (130-400) 02/02/23 Neutrophils (%) (Auto) 63.6 % 02/02/23 Lymphocytes (%) (Auto) 17.5 % 02/02/23 Monocytes # (Auto) 0.81 K/uL (0.11-0.59) H 02/02/23 Eosinophils # (Auto) 0.13 K/uL (0.00-0.50) 02/02/23 Immature Granulocyte % (Auto) 1.8 % 02/02/23 Neutrophils # (Auto) 3.57 K/uL (1.40-6.50) 02/02/23 Lymphocytes # (Auto) 0.98 K/uL (1.20-3.40) L 02/02/23 Monocytes # (Auto) 0.81 K/uL (0.11-0.59) H 02/02/23 Eosinophils # (Auto) 0.13 K/uL (0.00-0.50) 02/02/23 Basophils # (Auto) 0.02 K/uL (0.00-0.20) 02/02/23 Immature Granulocyte # (Auto) 0.10 K/uL (0.01-0.20) Na 137 mmol/L (136-145) 02/02/23 K 4.3 mmol/L (3.5-5.1) 02/02/23 Cl 103 mmol/L (98-107) 02/02/23 CO2 25 mmol/L (21-32) 02/02/23 Anion Gap 9 (3-11) 02/02/23 BUN 17 mg/dl (6-23) 02/02/23 Creatinine 1.01 mg/dl (0.6-1.4) 02/02/23 BUN/Creatinine Ratio 16.8 (10-20) 02/02/23 Glucose Level 107 mg/dl (70-99(Fasting)) H 02/02/23 Ca 9.3 mg/dl (8.6-10.3) 02/02/23 Total Bilirubin 0.5 mg/dl (0.2-1.0) 02/02/23 AST/SGOT 18 U/L (13-39) 02/02/23 ALT/SGPT 21 U/L (7-52) 02/02/23 Alkaline Phosphatase 59 U/L (34-104) 02/02/23 Total Protein 7.5 gm/dl (6.0-8.3) 02/02/23 Albumin 4.3 gm/dl (3.4-5.0) 02/02/23 Globulin 3.2 gm/dl (2.5-4.0) 02/02/23 Albumin/Globulin Ratio 1.3 (0.9-2) 02/02/23 PTT 25.1 Seconds (21.0-31.0) 02/02/23 INR 1.0 (0.9-1.1) 02/02/23 Code Status & VTE Plan Code Status FULL CODE VTE Prophylaxis Plan Reason for no VTE drug order: Treatment not indicated Supervising Physician Co-Signing Physician Notes Pt seen and examined by myself, Kary Winters MD on the day of service. Care was coordinated with Emily Cornell PA-C. 67yoM with PMhx significant for HTN, HLD, CAD s/p stent placement admitted with concern for acute CVA. Pt states that he was out hunting, had just had a soft BM without straining when he felt unsteady on his feet and fell, did not hit his head. Noted change in "visual perception". Per ED provider episode of stuttering that family member in the room confirms. AOOx3 on exam, strength 5/5 bilaterally in both upper and lower extremities. CT head, CTA neck with no acute changes, brain MRI pending Received Tenecteplase per recs from [email or web address], in ICU for further monitoring, repeat head CT pending as well. Was on Nicardipine drip, has a headache currently being treated with prn tylenol. PT/OT, neuro consult, further stroke workup. Otherwise as above.
[2023-02-02] MEDS ORDERED: PHARMACIST DISCHARGE MED REC CONSULT PRN (14:39)
[2023-02-02] MEDS ORDERED: GADOBUTROL 30ML VIAL IV ONE (16:03)
--- NOTE | 2023-02-02 16:33 | Magnetic Resonance Report ---
Brain MRI WITH AND WITHOUT CONTRAST HISTORY: Dizziness. Lower extremity weakness. eval for cva TECHNIQUE: Multiplanar multisequence MRI of the brain was performed both before and after the intrave nous administration of contrast. COMPARISON STUDY: Head CT 02/02/2023. FINDINGS: There are no areas of restricted diffusion to suggest acute infarction. The midline structu res are intact. Mild mucosal thickening within the right maxillary sinus. The mastoid air cells are c lear. The ventricles and sulci are within normal limits for age. There is no mass, hematoma, midline shift. The major vascular flow-voids at the skull base are well maintained. Postcontrast sequences sh ow no areas of abnormal enhancement. IMPRESSION: No acute intracranial abnormality. ACT 112: Negative or not required by law. Electronically signed by: Reuben Kign M.D. 02/02/2023 4:31 PM
[2023-02-02] MEDS ORDERED: ZOLPIDEM TARTRATE 5 MG TAB PO PRN (17:13)
--- NOTE | 2023-02-02 17:14 | Critical Care Consultation ---
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 Imaging including MRI of the brain has been unrevealing. The patient's symptoms have resolved with control of his blood pressure. Unclear etiology for the patient's symptoms. If this was a stroke, it appears aborted before any radiographic sequelae were identified. Hypertensive urgency may have a similar manifestation. Recommendations: 1. Status post TNK administration: Continue to observe in the ICU for bleeding 24 hours post administration per protocol. Follow-up CT scan in 24 hours after administration to rule out bleed and if negative patient can likely transfer to the floor. 2. Will have nursing perform a bedside swallow evaluation. If he passes will advance diet as tolerated. Continue oral medications. 3. Hypertension: Patient was initiated on Cardene. His blood pressure appears reasonably well-controlled currently. Will restart his carvedilol and try and wean off of the Cardene. Okay to tolerate blood pressures in the 140-170 range. 4. Continue thyroid medications as well as antireflux medication and lipid- lowering therapy. 5. Formal neurology consultation pending. Defer additional workup to them. 6. Patient requests sleep medication. He uses doxepin at night. Would favor nonbenzodiazepines and will pursue a trial of Ambien. He may require CPAP as well. The above recommendations and plan were extensively discussed with the patient and family at bedside. Questions were answered to the best my ability. They expressed understanding and are in agreement with plan as outlined History of Present Illness Attending Physician: Kary Winters MD History of Present Illness Asked by hospitalist to assist in management of this patient status post systemic thrombolytics for strokelike symptoms. History is obtained from discussion with the patient as well as review of electronic medical record. Patient is a 67-year-old male with a history of hypertension and coronary disease who was out hunting today. He developed weakness and an out of body sensation. He had a ground-level fall largely due to weakness and disequilibrium. EMS was activated. He was brought to the emergency room. Stroke alert was called. Telestroke recommended administration of systemic thrombolytics after initial imaging was unrevealing. He was also hypertensive and was initiated on a Cardene drip. The patient states that his symptoms are now essentially resolved. He is complaining of some mild vertigo. He has left greater than right dysmetria but otherwise his neurological exam is unrevealing. Allergies Allergy/AdvReac Type Severity Reaction Status Date / Time hydrocodone Allergy Verified 06/05/22 10:09 acetaminophen [From Percocet] AdvReac Verified 06/05/22 10:09 oxycodone [From Percocet] AdvReac Verified 06/05/22 10:09 LORCET Allergy Mild Itching Uncoded 06/05/22 10:09 Home Medications Medication Instructions Recorded Confirmed Type B-complex with vitamin C 1 cap PO HS 05/04/20 02/02/23 History aspirin 81 mg tablet,delayed 81 mg PO HS 05/04/20 02/02/23 History release (Adult Low Dose Aspirin) cholecalciferol (vitamin D3) 25 1,000 units PO QAM 05/04/20 02/02/23 History mcg (1,000 unit) capsule ezetimibe 10 mg tablet (Zetia) 10 mg PO HS 05/04/20 02/02/23 History levothyroxine 88 mcg capsule 88 mcg PO QAM 05/04/20 02/02/23 History multivitamin (Multiple Vitamins 1 tab PO HS 05/04/20 02/02/23 History tablet) omeprazole 20 mg tablet,delayed 20 mg PO QAM 05/04/20 02/02/23 History release ranolazine 1,000 mg 1,000 mg PO Q12 05/04/20 02/02/23 History tablet,extended release,12 hr rosuvastatin 40 mg tablet (Crestor) 40 mg PO HS 05/04/20 02/02/23 History nitroglycerin 0.4 mg sublingual 0.4 mg sublingual Q5M PRN chest 06/05/22 02/02/23 Rx tablet pain #25 tabs carvedilol 12.5 mg tablet 12.5 mg PO BID 02/02/23 02/02/23 History Patient History Medical History Rib fracture Mechanical fall 04/17/19 > Acute/subacute nondisplaced right lateral 7th rib fracture per 2/26/21 CT > pt reports residual rib pain but improving 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 Did not have formal testing at time of symptoms but did have COVID antibodies test 04/19/20 positive ([facility]) Chronic back pain RLE radiculopathy Osteoarthritis Hypothyroidism Depression Nonspecific reaction to 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 subsequent negative CXR Dyslipidemia Hypertension CAD (coronary artery disease) stent x1 to LAD (2003) Surgical History History of foot surgery Left great toe History of colonoscopy History of esophagogastroduodenoscopy (EGD) History of cardiac cath 2003 (stent x1), 2015 (no stent) H/O hernia repair Family History Grandfather (Maternal) Coronary heart disease Grandmother (Maternal) Family history of diabetes mellitus Father Family hx of colon cancer Social History Smoking Status: Never smoker Second Hand Exposure: No; Do You Dip or Chew Tobacco: No; Tobacco Cessation Education Requested by Patient: No Hx Alcohol Use: Yes Alcohol type: wine Hx Substance Use: No Preferred Language: Sudanese Communication Ability: Effective Manual Arts Therapist Required: No Beliefs That Will Affect Care: None marital status: Current Living Situation: Spouse current occupational status: retired current occupation: Psychologist Other Information That Helps Us Care for You: No Feels Safe at Home: Yes Safety Concerns: Feels Safe At This Time Assistive Devices: Glasses and Hearing Aid - Bilateral Review of Systems Review of Systems: Please refer to admission H&P. No additions or deletions Physical Exam Constitutional: WD/WN, vitals as above Neck: trachea midline, no thyromegaly Respiratory: normal respiratory effort, lungs clear to auscultation Cardiovascular: RRR, no murmur, no edema Gastrointestinal (Abdomen): normal bowel sounds, soft, nontender, no hepatosplenomegaly Musculoskeletal: Extremities: extremities normal to inspection Skin: no rashes, warm and dry Neurologic: [id number] on the left demonstrates dysmetria with an intention tremor which is new for the patient. Otherwise exam unremarkable Lymphatic: no cervical lymphadenopathy Results & Data Results & Data Vital Signs (Past 12 Hours) Vital Signs Temp Pulse Pulse Resp BP BP Pulse Ox 02/02/23 16:31 36.9 C 94 H 14 173/73 H 91 02/02/23 16:03 75 18 190/56 H 95 02/02/23 16:00 78 02/02/23 15:50 75 18 163/57 H 96 02/02/23 15:30 36.8 C 80 14 156/80 H 97 02/02/23 15:00 77 14 163/70 H 93 02/02/23 14:46 78 13 95 02/02/23 14:45 79 15 162/68 H 97 02/02/23 14:39 78 02/02/23 14:31 80 16 165/76 H 96 02/02/23 14:30 80 14 165/76 H 97 02/02/23 14:27 82 15 171/81 H 95 02/02/23 14:23 84 16 182/83 H 95 02/02/23 14:21 83 17 184/86 H 98 02/02/23 14:00 80 18 153/69 H 97 02/02/23 13:50 80 16 138/78 99 02/02/23 13:45 81 17 142/85 H 97 02/02/23 13:39 80 17 161/72 H 97 02/02/23 13:30 77 16 156/77 H 97 02/02/23 13:29 77 16 173/91 H 97 02/02/23 13:15 76 15 176/96 H 95 02/02/23 13:07 77 182/95 H 02/02/23 13:00 74 14 182/95 H 99 02/02/23 12:59 70 16 177/96 H 97 02/02/23 12:49 76 164/118 H 02/02/23 12:46 71 164/118 H 02/02/23 12:45 76 16 164/118 H 98 02/02/23 12:37 75 14 171/91 H 96 02/02/23 12:30 75 18 168/90 H 97 02/02/23 12:25 80 16 162/61 H 95 02/02/23 12:22 82 16 180/84 H 99 02/02/23 12:22 74 16 168/90 H 96 02/02/23 12:18 83 17 188/91 H 98 02/02/23 12:15 85 19 02/02/23 12:00 84 17 161/88 H 96 02/02/23 11:53 83 02/02/23 11:48 83 19 173/83 H 97 02/02/23 11:30 84 17 181/111 H 98 02/02/23 11:00 36.6 C 87 17 148/86 H 94 O2 Del Method 02/02/23 16:31 Room Air 02/02/23 16:03 Room Air 02/02/23 16:00 02/02/23 15:50 Room Air 02/02/23 15:30 Room Air 02/02/23 15:00 Room Air 02/02/23 14:46 02/02/23 14:45 Room Air 02/02/23 14:39 02/02/23 14:31 Room Air 02/02/23 14:30 Room Air 02/02/23 14:27 Room Air 02/02/23 14:23 Room Air 02/02/23 14:21 Room Air 02/02/23 14:00 Room Air 02/02/23 13:50 Room Air 02/02/23 13:45 Room Air 02/02/23 13:39 Room Air 02/02/23 13:30 Room Air 02/02/23 13:29 Room Air 02/02/23 13:15 Room Air 02/02/23 13:07 02/02/23 13:00 02/02/23 12:59 Room Air 02/02/23 12:49 02/02/23 12:46 02/02/23 12:45 Room Air 02/02/23 12:37 Room Air 02/02/23 12:30 Room Air 02/02/23 12:25 Room Air 02/02/23 12:22 Room Air 02/02/23 12:22 Room Air 02/02/23 12:18 Room Air 02/02/23 12:15 02/02/23 12:00 Room Air 02/02/23 11:53 02/02/23 11:48 Room Air 02/02/23 11:30 Room Air 02/02/23 11:00 Room Air Critical Care Results & Data Vital Signs (Past 12 Hours) Vital Signs Temp Pulse Pulse Resp BP BP Pulse Ox 02/02/23 16:31 36.9 C 94 H 14 173/73 H 91 02/02/23 16:03 75 18 190/56 H 95 02/02/23 16:00 78 02/02/23 15:50 75 18 163/57 H 96 02/02/23 15:30 36.8 C 80 14 156/80 H 97 02/02/23 15:00 77 14 163/70 H 93 02/02/23 14:46 78 13 95 02/02/23 14:45 79 15 162/68 H 97 02/02/23 14:39 78 02/02/23 14:31 80 16 165/76 H 96 02/02/23 14:30 80 14 165/76 H 97 02/02/23 14:27 82 15 171/81 H 95 02/02/23 14:23 84 16 182/83 H 95 02/02/23 14:21 83 17 184/86 H 98 02/02/23 14:00 80 18 153/69 H 97 02/02/23 13:50 80 16 138/78 99 02/02/23 13:45 81 17 142/85 H 97 02/02/23 13:39 80 17 161/72 H 97 02/02/23 13:30 77 16 156/77 H 97 02/02/23 13:29 77 16 173/91 H 97 02/02/23 13:15 76 15 176/96 H 95 02/02/23 13:07 77 182/95 H 02/02/23 13:00 74 14 182/95 H 99 02/02/23 12:59 70 16 177/96 H 97 02/02/23 12:49 76 164/118 H 02/02/23 12:46 71 164/118 H 02/02/23 12:45 76 16 164/118 H 98 02/02/23 12:37 75 14 171/91 H 96 02/02/23 12:30 75 18 168/90 H 97 02/02/23 12:25 80 16 162/61 H 95 02/02/23 12:22 82 16 180/84 H 99 02/02/23 12:22 74 16 168/90 H 96 02/02/23 12:18 83 17 188/91 H 98 02/02/23 12:15 85 19 02/02/23 12:00 84 17 161/88 H 96 02/02/23 11:53 83 02/02/23 11:48 83 19 173/83 H 97 02/02/23 11:30 84 17 181/111 H 98 02/02/23 11:00 36.6 C 87 17 148/86 H 94 O2 Del Method 02/02/23 16:31 Room Air 02/02/23 16:03 Room Air 02/02/23 16:00 02/02/23 15:50 Room Air 02/02/23 15:30 Room Air 02/02/23 15:00 Room Air 02/02/23 14:46 02/02/23 14:45 Room Air 02/02/23 14:39 02/02/23 14:31 Room Air 02/02/23 14:30 Room Air 02/02/23 14:27 Room Air 02/02/23 14:23 Room Air 02/02/23 14:21 Room Air 02/02/23 14:00 Room Air 02/02/23 13:50 Room Air 02/02/23 13:45 Room Air 02/02/23 13:39 Room Air 02/02/23 13:30 Room Air 02/02/23 13:29 Room Air 02/02/23 13:15 Room Air 02/02/23 13:07 02/02/23 13:00 02/02/23 12:59 Room Air 02/02/23 12:49 02/02/23 12:46 02/02/23 12:45 Room Air 02/02/23 12:37 Room Air 02/02/23 12:30 Room Air 02/02/23 12:25 Room Air 02/02/23 12:22 Room Air 02/02/23 12:22 Room Air 02/02/23 12:18 Room Air 02/02/23 12:15 02/02/23 12:00 Room Air 02/02/23 11:53 02/02/23 11:48 Room Air 02/02/23 11:30 Room Air 02/02/23 11:00 Room Air Lab & Micro Results (Past 24 Hours) RBC 4.56 M/uL (4.70-6.10) L 02/02/23 WBC 5.61 K/ul (4.8-10.8) 02/02/23 Hgb 13.8 g/dl (14.0-18.0) L 02/02/23 Hct 40.6 % (42.0-52.0) L 02/02/23 MCV 89.0 fL (80.0-100.0) 02/02/23 MCH 30.3 pg (25.0-34.0) 02/02/23 MCHC 34.0 g/dL (32.0-36.0) 02/02/23 RDW Standard Deviation 43.3 fL (36.4-46.3) 02/02/23 RDW Coefficient of Variation 13.2 % (11.5-14.5) 02/02/23 Plt Count 164 K/uL (130-400) 02/02/23 MPV 8.7 fL (9.4-12.4) L 02/02/23 Neutrophils (%) (Auto) 63.6 % 02/02/23 Lymphocytes (%) (Auto) 17.5 % 02/02/23 Monocytes # (Auto) 0.81 K/uL (0.11-0.59) H 02/02/23 Eosinophils # (Auto) 0.13 K/uL (0.00-0.50) 02/02/23 Immature Granulocyte % (Auto) 1.8 % 02/02/23 Neutrophils # (Auto) 3.57 K/uL (1.40-6.50) 02/02/23 Lymphocytes # (Auto) 0.98 K/uL (1.20-3.40) L 02/02/23 Monocytes # (Auto) 0.81 K/uL (0.11-0.59) H 02/02/23 Eosinophils # (Auto) 0.13 K/uL (0.00-0.50) 02/02/23 Basophils # (Auto) 0.02 K/uL (0.00-0.20) 02/02/23 Immature Granulocyte # (Auto) 0.10 K/uL (0.01-0.20) 3 Na 137 mmol/L (136-145) 02/02/23 K 4.3 mmol/L (3.5-5.1) 02/02/23 Cl 103 mmol/L (98-107) 02/02/23 CO2 25 mmol/L (21-32) 02/02/23 Anion Gap 9 (3-11) 02/02/23 BUN 17 mg/dl (6-23) 02/02/23 Creatinine 1.01 mg/dl (0.6-1.4) 02/02/23 Estimated GFR ( Amer) 88.2 ml/min 02/02/23 Estimated GFR (Non-Af Amer) 76.1 ml/min 02/02/23 BUN/Creatinine Ratio 16.8 (10-20) 02/02/23 Glu 107 mg/dl (70-99(Fasting)) H 02/02/23 Ca 9.3 mg/dl (8.6-10.3) 02/02/23 Total Bilirubin 0.5 mg/dl (0.2-1.0) 02/02/23 AST 18 U/L (13-39) 02/02/23 ALT 21 U/L (7-52) 02/02/23 Alkaline Phosphatase 59 U/L (34-104) 02/02/23 TP 7.5 gm/dl (6.0-8.3) 02/02/23 Albumin 4.3 gm/dl (3.4-5.0) 02/02/23 Globulin 3.2 gm/dl (2.5-4.0) 02/02/23 Albumin/Globulin Ratio 1.3 (0.9-2) 02/02/23 Mg 1.7 mg/dl (1.7-2.4) 02/02/23 11:20 Calcium Level 9.3 mg/dl (8.6-10.3) 02/02/23 11:20 Prothromb Time International Ratio 1.0 (0.9-1.1) 02/02/23 11:2 0 Diagnostic Findings (Past 24 Hours) Head CT 02/02/23 11:[address] DOSE: HISTORY: neuro deficit, acute stroke suspected TECHNIQUE: Multiaxial CT images of the head were performed without the use of intravenous contrast. Automated exposure control was utilized for this study. A dose lowering technique was utilized adhering to the principles of ALARA. Comparison: None. Findings: Mild mucosal thickening within the right maxillary sinus. The mastoid air cells are clear. The calvarium and skull base are intact. The ventricles and sulci are within normal limits. There is no mass, hematoma, midline shift, or acute infarct. Impression: No acute intracranial abnormality. ACT 112: Negative or not required by law. Electronically signed by: Reuben King M.D. 02/02/2023 11:47 AM Head CTA 02/02/23 11:29 HEAD & NECK CTA HISTORY: neuro deficit, acute stroke suspected TECHNIQUE: Multiaxial CT images of the head were performed following the i ntravenous administration of contrast to evaluate the major cerebral vessels. Multiaxial CT images of the neck were also performed following the intravenous administration of contrast to evaluate the major cervical vessels. 3D/MIP images were also obtained. Sagittal and coronal reformats were reviewed. A dose lowering technique was utilized adhering to the principles of ALARA. COMPARISON: Noncontrast head CT 02/02/2023. FINDINGS: There is no mass, hematoma, midline shift, or acute infarct. Visualized intracranial internal carotid arteries, distal vertebral arteries, and basilar artery are widely patent. There is no significant stenosis, occlusion, or aneurysm seen within the bilateral ACAs, MCAs, or bilingual inside sales representative. Mild calcified plaque within the bilateral carotid siphons. The major dural venous sinuses are patent. The aortic arch and proximal great vessels are widely patent. There is no significant stenosis, occlusion, or dissection identified within the bilateral common carotid, internal carotid, or vertebral arteries. Mild calcified plaque within the bilateral carotid bulbs. IMPRESSION: 1. No significant stenosis, occlusion, or aneurysm within the standing [place] of [place]. 2. No significant stenosis, occlusion, or dissection identified within the carotid or vertebral arteries. ACT 112: Negative or not required by law. Electronically signed by: Reuben King M.D. 02/02/2023 12:07 PM Neck CTA 02/02/23 11:29 HEAD & NECK CTA HISTORY: neuro deficit, acute stroke suspected TECHNIQUE: Multiaxial CT images of the head were performed following the intravenous administration of contrast to evaluate the major cerebral vessels. Multiaxial CT images of the neck were also performed following the intravenous administration of contrast to evaluate the major cervical vessels. 3D/MIP images were also obtained. Sagittal and coronal reformats were reviewed. A dose lowering technique was utilized adhering to the principles of ALARA. COMPARISON: Noncontrast head CT 02/02/2023. FINDINGS: There is no mass, hematoma, midline shift, or acute infarct. Visualized intracranial internal carotid arteries, distal vertebral arteries, and basilar artery are widely patent. There is no significant stenosis, occlusion, or aneurysm seen within the bilateral ACAs, MCAs, or bilingual inside sales representative. Mild calcified plaque within the bilateral carotid siphons. The major dural venous sinuses are patent. The aortic arch and proximal great vessels are widely patent. There is no significant stenosis, occlusion, or dissection identified within the bilateral common carotid, internal carotid, or vertebral arteries. Mild calcified plaque within the bilateral carotid bulbs. IMPRESSION: 1. No significant stenosis, occlusion, or aneurysm within the standing [place] of [place]. 2. No significant stenosis, occlusion, or dissection identified within the carotid or vertebral arteries. ACT 112: Negative or not required by law. Electronically signed by: Reuben King M.D. 02/02/2023 12:[address] 02/02/23 13:[address] DOSE: 625.8 mGy.cm HISTORY: headache, s/p tpa TECHNIQUE: Multiaxial CT images of the head were performed without the use of intravenous contrast. Automated exposure control was utilized for this study. A dose lowering technique was utilized adhering to the principles of ALARA. Comparison: Head CT 02/02/2023. Findings: Mild mucosal thickening within the right maxillary sinus. The mastoid air cells are clear. The calvarium and skull base are intact. There is residual contrast within the brain from the recent head CTA. This results in suboptimal evaluation for intracranial hemorrhage. However, there is no definite mass, hematoma, midline shift, or acute infarct. The ventricles and sulci are within normal limits. Impression: No definite acute intracranial abnormality. ACT 112: Negative or not required by law. Electronically signed by: Reuben King M.D. 02/02/2023 2:18 PM Brain MRI 02/02/23 13:37 Brain MRI WITH AND WITHOUT CONTRAST HISTORY: Dizziness. Lower extremity weakness. eval for cva TECHNIQUE: Multiplanar multisequence MRI of the brain was performed both before and after the intravenous administration of contrast. COMPARISON STUDY: Head CT 02/02/2023. FINDINGS: There are no areas of restricted diffusion to suggest acute infarction. The midline structures are intact. Mild mucosal thickening within the right maxillary sinus. The mastoid air cells are clear. The ventricles and sulci are within normal limits for age. There is no mass, hematoma, midline shift. The major vascular flow-voids at the skull base are well maintained. Postcontrast sequences show no areas of abnormal enhancement. IMPRESSION: No acute intracranial abnormality. ACT 112: Negative or not required by law. Electronically signed by: Reuben King M.D. 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
[2023-02-02] MEDS: ACETAMINOPHEN 325 MG TAB PO PRN ×2 (17:29→22:19)
[2023-02-02] MEDS ORDERED: carvediloL 12.5 MG TAB PO ONE (17:30)
[2023-02-02] MEDS: ICU Protocol for HYPERglycemia SCH ×2 (18:06→20:12)
--- NOTE | 2023-02-02 19:44 | XCELERA ---
[id number] [id number]
[2023-02-02] MEDS ORDERED: ROSUVASTATIN CALCIUM 20 MG TAB PO SCH (21:00)
[2023-02-02] MEDS ORDERED: EZETIMIBE 10 MG TAB PO SCH (21:00)
[2023-02-02] MEDS ORDERED: ACETAMINOPHEN 325 MG TAB PO STA (22:45)
--- NOTE | 2023-02-03 00:31 | CT Scan Report ---
Exam(s): CT HEAD Without Contrast EXAM: CT Head Without Intravenous Contrast CLINICAL HISTORY: Reason for exam: headache eval for hemorrhage- post TNK. TECHNIQUE: Axial computed tomography images of the head/brain without intravenous contrast. Automated exposure control was utilized for the study. A dose lowering technique was utilized adhering to the principles of ALARA. COMPARISON: February 02, 2023 at 1409 hrs. FINDINGS: Brain: Unremarkable. No hemorrhage. No significant white matter disease. No edema. Ventricles: Unremarkable. No ventriculomegaly. Bones/joints: Unremarkable. No acute fracture. Soft tissues: Unremarkable. Sinuses: Unremarkable as visualized. No acute sinusitis. Mastoid air cells: Unremarkable as visualized. No mastoid effusion. IMPRESSION: Normal head/brain CT. Electronically signed by: Rashawn Diaz MD 02/03/23 00:29 AM
[2023-02-03 04:35] LABS: Hematocrit (blood only) 36.6 % (42.0-52.0); Hemoglobin 12.6 g/dl (14.0-18.0); Mean Corpuscular Hemoglobin 30.2 pg (25.0-34.0); Mean Corpuscular Hgb Conc 34.4 g/dL (32.0-36.0); Mean Corpuscular Volume 87.8 fL (80.0-100.0); Mean Platelet Volume 8.4 fL (9.4-12.4); Platelet Count 142 K/uL (130-400); RDW Coefficient of Variation 13.2 % (11.5-14.5); RDW Standard Deviation 41.9 fL (36.4-46.3); Red Blood Count 4.17 M/uL (4.70-6.10); White Blood Count 5.98 K/ul (4.8-10.8)
[2023-02-03 04:48] LABS: BUN Creatinine Ratio 20.2 (10-20); Calcium 8.7 mg/dl (8.6-10.3); Chol HDL Ratio 5.3 (0-5); Creatinine Clr Calc Pharmacy 102.3 ml/min; Est GFR (African American) 104.3 ml/min; Potassium 3.5 mmol/L (3.5-5.1)
[2023-02-03] MEDS ORDERED: LEVOTHYROXINE SODIUM 88 MCG TABLET PO SCH (06:30)
[2023-02-03] MEDS: niCARdipine 25 MG in SODIUM CHLORIDE 0.9% 240 ML IV SCH (07:13)
--- NOTE | 2023-02-03 07:47 | Critical Care Progress Note ---
Date of Service February 03, 2023 Assessment & Plan (1) tPA adm status 24 hr CONTACT LENS CUTTER: (2) Stroke-like symptoms: (3) Hypertension: Plan Impression: 67-year-old male with history of coronary disease and hypertension admitted with strokelike symptoms status post tNK. Imaging including MRI of the brain has been unrevealing. The patient's symptoms have resolved with control of his blood pressure. Unclear etiology for the patient's symptoms. If this was a stroke, it appears aborted before any radiographic sequelae were identified. Hypertensive urgency may have a similar manifestation. Recommendations: 1. Status post TNK administration: Follow-up CT to be done around 1230 today and if negative the patient can transition out of the intensive care unit 2. PT OT evaluations. 3. Hypertension: Cardene off: Continue carvedilol. May need to add second agent. Will use low-dose labetalol pending response to carvedilol 4. Continue thyroid medications as well as antireflux medication and lipid- lowering therapy. 5. Formal neurology consultation pending. Defer additional workup to them. Discussed with patient and bedside critical care nurse and multidisciplinary rounds. Follow-up with CT scan. If no bleeding, the patient will be transferred out of the intensive care unit and critical care services will sign off. Admission and Anticipated Discharge Date Admission Date: February 02, 2023 Subjective Patient seen and examined. EMR reviewed. Review of Systems 2 Review of Systems: All systems reviewed & are unremarkable except as noted in Subjective Physical Exam 2 Constitutional: WD/WN, vitals as above Neck: trachea midline, no thyromegaly Respiratory: normal respiratory effort, lungs clear to auscultation Cardiovascular: RRR, no murmur, no edema Gastrointestinal (Abdomen): normal bowel sounds, soft, nontender, no hepatosplenomegaly Musculoskeletal: Extremities: extremities normal to inspection Skin: no rashes, warm and dry Lymphatic: no cervical lymphadenopathy Results & Data Results & Data Vital Signs (Past 12 Hours) Vital Signs Temp Pulse Pulse Resp BP BP Pulse Ox 02/03/23 07:20 69 02/03/23 07:00 36.9 C 88 16 180/89 H 94 02/03/23 06:34 65 12 142/72 H 02/03/23 06:31 69 8 L 160/86 H 92 02/03/23 06:30 68 15 92 02/03/23 06:00 65 2 L 142/72 H 94 02/03/23 05:50 36.7 C 02/03/23 05:34 69 14 139/73 02/03/23 05:30 69 14 157/71 H 96 02/03/23 05:00 66 1 L 139/73 93 02/03/23 04:34 67 14 137/77 02/03/23 04:30 72 18 141/80 H 93 02/03/23 04:00 67 14 137/77 94 02/03/23 03:34 71 14 142/59 H 02/03/23 03:30 81 13 153/76 H 92 02/03/23 03:00 71 14 142/57 H 90 02/03/23 02:34 68 12 128/61 02/03/23 02:30 70 18 93 02/03/23 02:00 68 12 128/61 93 02/03/23 01:34 85 20 129/74 02/03/23 01:30 69 14 139/72 93 02/03/23 01:00 85 20 129/74 94 02/03/23 00:58 88 16 160/56 H 02/03/23 00:58 36.7 C 02/03/23 00:42 79 02/03/23 00:34 87 19 164/67 H 02/03/23 00:30 79 26 H 162/62 H 91 02/03/23 00:00 82 19 164/67 H 89 L 02/02/23 23:34 87 16 154/75 H 02/02/23 23:30 89 16 151/71 H 91 02/02/23 23:00 83 16 154/73 H 91 02/02/23 22:42 79 7 L 94 02/02/23 22:15 81 4 L 143/72 H 93 02/02/23 22:04 82 14 139/60 02/02/23 22:01 02/02/23 22:00 82 14 139/60 94 02/02/23 21:45 84 15 123/53 L 89 L 02/02/23 21:30 81 16 129/56 L 92 02/02/23 21:15 78 16 137/57 L 92 02/02/23 21:04 76 17 137/72 98 02/02/23 21:00 76 17 137/72 92 02/02/23 20:45 82 14 145/74 H 89 L 02/02/23 20:30 88 14 129/80 91 02/02/23 20:15 81 16 168/63 H 93 02/02/23 20:04 83 18 166/68 H 97 02/02/23 20:00 83 18 166/68 H 92 O2 Del Method O2 Flow Rate 02/03/23 07:20 02/03/23 07:00 Room Air 02/03/23 06:34 02/03/23 06:31 02/03/23 06:30 02/03/23 06:00 02/03/23 05:50 02/03/23 05:34 02/03/23 05:30 02/03/23 05:00 02/03/23 04:34 02/03/23 04:30 02/03/23 04:00 02/03/23 03:34 02/03/23 03:30 02/03/23 03:00 02/03/23 02:34 02/03/23 02:30 02/03/23 02:00 02/03/23 01:34 02/03/23 01:30 02/03/23 01:00 02/03/23 00:58 02/03/23 00:58 02/03/23 00:42 02/03/23 00:34 02/03/23 00:30 02/03/23 00:00 02/02/23 23:34 02/02/23 23:30 02/02/23 23:00 02/02/23 22:42 02/02/23 22:15 02/02/23 22:04 02/02/23 22:01 Nasal Cannula 1 02/02/23 22:00 02/02/23 21:45 02/02/23 21:30 02/02/23 21:15 02/02/23 21:04 Room Air 02/02/23 21:00 02/02/23 20:45 02/02/23 20:30 02/02/23 20:15 02/02/23 20:04 Room Air 02/02/23 20:00 Laboratory Results 02/03/23 04:10 02/03/23 04:10 Critical Care Results & Data Vital Signs (Past 12 Hours) Vital Signs Temp Pulse Pulse Resp BP BP Pulse Ox 02/03/23 07:20 69 02/03/23 07:00 36.9 C 88 16 180/89 H 94 02/03/23 06:34 65 12 142/72 H 02/03/23 06:31 69 8 L 160/86 H 92 02/03/23 06:30 68 15 92 02/03/23 06:00 65 2 L 142/72 H 94 02/03/23 05:50 36.7 C 02/03/23 05:34 69 14 139/73 02/03/23 05:30 69 14 157/71 H 96 02/03/23 05:00 66 1 L 139/73 93 02/03/23 04:34 67 14 137/77 02/03/23 04:30 72 18 141/80 H 93 02/03/23 04:00 67 14 137/77 94 02/03/23 03:34 71 14 142/59 H 02/03/23 03:30 81 13 153/76 H 92 02/03/23 03:00 71 14 142/57 H 90 02/03/23 02:34 68 12 128/61 02/03/23 02:30 70 18 93 02/03/23 02:00 68 12 128/61 93 02/03/23 01:34 85 20 129/74 02/03/23 01:30 69 14 139/72 93 02/03/23 01:00 85 20 129/74 94 02/03/23 00:58 88 16 160/56 H 02/03/23 00:58 36.7 C 02/03/23 00:42 79 02/03/23 00:34 87 19 164/67 H 02/03/23 00:30 79 26 H 162/62 H 91 02/03/23 00:00 82 19 164/67 H 89 L 02/02/23 23:34 87 16 154/75 H 02/02/23 23:30 89 16 151/71 H 91 02/02/23 23:00 83 16 154/73 H 91 02/02/23 22:42 79 7 L 94 02/02/23 22:15 81 4 L 143/72 H 93 02/02/23 22:04 82 14 139/60 02/02/23 22:01 02/02/23 22:00 82 14 139/60 94 02/02/23 21:45 84 15 123/53 L 89 L 02/02/23 21:30 81 16 129/56 L 92 02/02/23 21:15 78 16 137/57 L 92 02/02/23 21:04 76 17 137/72 98 02/02/23 21:00 76 17 137/72 92 02/02/23 20:45 82 14 145/74 H 89 L 02/02/23 20:30 88 14 129/80 91 02/02/23 20:15 81 16 168/63 H 93 02/02/23 20:04 83 18 166/68 H 97 O2 Del Method O2 Flow Rate 02/03/23 07:20 02/03/23 07:00 Room Air 02/03/23 06:34 02/03/23 06:31 02/03/23 06:30 02/03/23 06:00 02/03/23 05:50 02/03/23 05:34 02/03/23 05:30 02/03/23 05:00 02/03/23 04:34 02/03/23 04:30 02/03/23 04:00 02/03/23 03:34 02/03/23 03:30 02/03/23 03:00 02/03/23 02:34 02/03/23 02:30 02/03/23 02:00 02/03/23 01:34 02/03/23 01:30 02/03/23 01:00 02/03/23 00:58 02/03/23 00:58 02/03/23 00:42 02/03/23 00:34 02/03/23 00:30 02/03/23 00:00 02/02/23 23:34 02/02/23 23:30 02/02/23 23:00 02/02/23 22:42 02/02/23 22:15 02/02/23 22:04 02/02/23 22:01 Nasal Cannula 1 02/02/23 22:00 02/02/23 21:45 02/02/23 21:30 02/02/23 21:15 02/02/23 21:04 Room Air 02/02/23 21:00 02/02/23 20:45 02/02/23 20:30 02/02/23 20:15 02/02/23 20:04 Room Air Lab & Micro Results (Past 24 Hours) 2 RBC 4.17 M/uL (4.70-6.10) L 02/03/23 WBC 5.98 K/ul (4.8-10.8) 02/03/23 Hgb 12.6 g/dl (14.0-18.0) L 02/03/23 Hct 36.6 % (42.0-52.0) L 02/03/23 MCV 87.8 fL (80.0-100.0) 02/03/23 MCH 30.2 pg (25.0-34.0) 02/03/23 MCHC 34.4 g/dL (32.0-36.0) 02/03/23 RDW Standard Deviation 41.9 fL (36.4-46.3) 02/03/23 RDW Coefficient of Variation 13.2 % (11.5-14.5) 02/03/23 Plt Count 142 K/uL (130-400) 02/03/23 MPV 8.4 fL (9.4-12.4) L 02/03/23 Neutrophils (%) (Auto) 63.6 % 02/02/23 Lymphocytes (%) (Auto) 17.5 % 02/02/23 Monocytes # (Auto) 0.81 K/uL (0.11-0.59) H 02/02/23 Eosinophils # (Auto) 0.13 K/uL (0.00-0.50) 02/02/23 Immature Granulocyte % (Auto) 1.8 % 02/02/23 Neutrophils # (Auto) 3.57 K/uL (1.40-6.50) 02/02/23 Lymphocytes # (Auto) 0.98 K/uL (1.20-3.40) L 02/02/23 Monocytes # (Auto) 0.81 K/uL (0.11-0.59) H 02/02/23 Eosinophils # (Auto) 0.13 K/uL (0.00-0.50) 02/02/23 Basophils # (Auto) 0.02 K/uL (0.00-0.20) 02/02/23 Immature Granulocyte # (Auto) 0.10 K/uL (0.01-0.20) 3 2 Na 136 mmol/L (136-145) 02/03/23 K 3.5 mmol/L (3.5-5.1) 02/03/23 Cl 104 mmol/L (98-107) 02/03/23 CO2 25 mmol/L (21-32) 02/03/23 Anion Gap 7 (3-11) 02/03/23 BUN 17 mg/dl (6-23) 02/03/23 Creatinine 0.84 mg/dl (0.6-1.4) 02/03/23 Estimated GFR ( Amer) 104.3 ml/min 02/03/23 Estimated GFR (Non-Af Amer) 90.0 ml/min 02/03/23 BUN/Creatinine Ratio 20.2 (10-20) H 02/03/23 Glu 106 mg/dl (70-99(Fasting)) H 02/03/23 Ca 8.7 mg/dl (8.6-10.3) 02/03/23 Total Bilirubin 0.5 mg/dl (0.2-1.0) 02/02/23 AST 18 U/L (13-39) 02/02/23 ALT 21 U/L (7-52) 02/02/23 Alkaline Phosphatase 59 U/L (34-104) 02/02/23 TP 7.5 gm/dl (6.0-8.3) 02/02/23 Albumin 4.3 gm/dl (3.4-5.0) 02/02/23 Globulin 3.2 gm/dl (2.5-4.0) 02/02/23 Albumin/Globulin Ratio 1.3 (0.9-2) 02/02/23 2 Mg 1.7 mg/dl (1.7-2.4) 02/02/23 11:20 Calcium Level 8.7 mg/dl (8.6-10.3) 02/03/23 04:10 Prothromb Time International Ratio 1.0 (0.9-1.1) 02/02/23 11:2 0 Diagnostic Findings (Past 24 Hours) Head CT 02/02/23 11:[address] DOSE: HISTORY: neuro deficit, acute stroke suspected TECHNIQUE: Multiaxial CT images of the head were performed without the use of intravenous contrast. Automated exposure control was utilized for this study. A dose lowering technique was utilized adhering to the principles of ALARA. Comparison: None. Findings: Mild mucosal thickening within the right maxillary sinus. The mastoid air cells are clear. The calvarium and skull base are intact. The ventricles and sulci are within normal limits. There is no mass, hematoma, midline shift, or acute infarct. Impression: No acute intracranial abnormality. ACT 112: Negative or not required by law. Electronically signed by: Reuben King M.D. 02/02/2023 11:47 AM Head CTA 02/02/23 11:29 HEAD & NECK CTA HISTORY: neuro deficit, acute stroke suspected TECHNIQUE: Multiaxial CT images of the head were performed following the intravenous administration of contrast to evaluate the major cerebral vessels. Multiaxial CT images of the neck were also performed following the intravenous administration of contrast to evaluate the major cervical vessels. 3D/MIP images were also obtained. Sagittal and coronal reformats were reviewed. A dose lowering technique was utilized adhering to the principles of ALARA. COMPARISON: Noncontrast head CT 02/02/2023. FINDINGS: There is no mass, hematoma, midline shift, or acute infarct. Visualized intracranial internal carotid arteries, distal vertebral arteries, and basilar artery are widely patent. There is no significant stenosis, occlusion, or aneurysm seen within the bilateral ACAs, MCAs, or health care assistant. Mild calcified plaque within the bilateral carotid siphons. The major dural venous sinuses are patent. The aortic arch and proximal great vessels are widely patent. There is no significant stenosis, occlusion, or dissection identified within the bilateral common carotid, internal carotid, or vertebral arteries. Mild calcified plaque within the bilateral carotid bulbs. IMPRESSION: 1. No significant stenosis, occlusion, or aneurysm within the [place]. 2. No significant stenosis, occlusion, or dissection identified within the carotid or vertebral arteries. ACT 112: Negative or not required by law. Electronically signed by: Reuben King M.D. 02/02/2023 12:07 PM Neck CTA 02/02/23 11:29 HEAD & NECK CTA HISTORY: neuro deficit, acute stroke suspected TECHNIQUE: Multiaxial CT images of the head were performed following the intravenous administration of contrast to evaluate the major cerebral vessels. Multiaxial CT images of the neck were also performed following the intravenous administration of contrast to evaluate the major cervical vessels. 3D/MIP images were also obtained. Sagittal and coronal reformats were reviewed. A dose lowering technique was utilized adhering to the principles of ALARA. COMPARISON: Noncontrast head CT 02/02/2023. FINDINGS: There is no mass, hematoma, midline shift, or acute infarct. Visualized intracranial internal carotid arteries, distal vertebral arteries, and basilar artery are widely patent. There is no significant stenosis, occlusion, or aneurysm seen within the bilateral ACAs, MCAs, or health care assistant. Mild calcified plaque within the bilateral carotid siphons. The major dural venous sinuses are patent. The aortic arch and proximal great vessels are widely patent. There is no significant stenosis, occlusion, or dissection identified within the bilateral common carotid, internal carotid, or vertebral arteries. Mild calcified plaque within the bilateral carotid bulbs. IMPRESSION: 1. No significant stenosis, occlusion, or aneurysm within the [place]. 2. No significant stenosis, occlusion, or dissection identified within the carotid or vertebral arteries. ACT 112: Negative or not required by law. Electronically signed by: Reuben King M.D. 02/02/2023 12:[address] 02/02/23 13:[address] DOSE: 625.8 mGy.cm HISTORY: headache, s/p tpa TECHNIQUE: Multiaxial CT images of the head were performed without the use of intravenous contrast. Automated exposure control was utilized for this study. A dose lowering technique was utilized adhering to the principles of ALARA. Comparison: Head CT 02/02/2023. Findings: Mild mucosal thickening within the right maxillary sinus. The mastoid air cells are clear. The calvarium and skull base are intact. There is residual contrast within the brain from the recent head CTA. This results in suboptimal evaluation for intracranial hemorrhage. However, there is no definite mass, hematoma, midline shift, or acute infarct. The ventricles and sulci are within normal limits. Impression: No definite acute intracranial abnormality. ACT 112: Negative or not required by law. Electronically signed by: Reuben King M.D. 02/02/2023 2:18 PM Brain MRI 02/02/23 13:37 Brain MRI WITH AND WITHOUT CONTRAST HISTORY: Dizziness. Lower extremity weakness. eval for cva TECHNIQUE: Multiplanar multisequence MRI of the brain was performed both before and after the intravenous administration of contrast. COMPARISON STUDY: Head CT 02/02/2023. FINDINGS: There are no areas of restricted diffusion to suggest acute infarction. The midline structures are intact. Mild mucosal thickening within the right maxillary sinus. The mastoid air cells are clear. The ventricles and sulci are within normal limits for age. There is no mass, hematoma, midline shift. The major vascular flow-voids at the skull base are well maintained. Postcontrast sequences show no areas of abnormal enhancement. IMPRESSION: No acute intracranial abnormality. ACT 112: Negative or not required by law. Electronically signed by: Reuben King M.D. 02/02/2023 4:[address] 02/02/23 22:20 Exam(s): CT HEAD Without Contrast EXAM: CT Head Without Intravenous Contrast CLINICAL HISTORY: Reason for exam: headache eval for hemorrhage- post TNK. TECHNIQUE: Axial computed tomography images of the head/brain without intravenous contrast. Automated exposure control was utilized for the study. A dose lowering technique was utilized adhering to the principles of ALARA. COMPARISON: February 02, 2023 at 1409 hrs. FINDINGS: Brain: Unremarkable. No hemorrhage. No significant white matter disease. No edema. Ventricles: Unremarkable. No ventriculomegaly. Bones/joints: Unremarkable. No acute fracture. Soft tissues: Unremarkable. Sinuses: Unremarkable as visualized. No acute sinusitis. Mastoid air cells: Unremarkable as visualized. No mastoid effusion. IMPRESSION: Normal head/brain CT. Electronically signed by: Rashawn Diaz MD 02/03/23 00:29 AM I & O Totals 24 Hours 02/02/23 02/03/23 02/04/23 06:59 06:59 06:59 Intake Total 1392.750 / 1392.750 0 / 0 Output Total 900 / 900 Balance 492.750 / 492.750 0 / 0 Cumulative 02/02/23 10:48 thru 02/03/23 07:13 Intake Total 1392.750 Output Total 900 Balance 492.750 RT Ventilator Mngmt (Last Documented) Ventilator Ordered Settings Respiratory Rate 16 02/03/23 07:00 Ventilator - PT Measurements Respiratory Rate 16 Coding Level of Care Code 65269 SUB INP/OBS CARE 2/35MIN Diagnoses tPA adm status 24 hr CONTACT LENS CUTTER Z92.82 Stroke-like symptoms R29.90 Hypertension I10
--- NOTE | 2023-02-03 07:52 | Electrocardiogram Report ---
Test Reason : Blood Pressure : / mmHG Vent. Rate : 083 BPM Atrial Rate : 083 BPM P-R Int : 194 ms QRS Dur : 100 ms QT Int : 418 ms P-R-T Axes : 052 -27 023 degrees QTc Int : 491 ms Normal sinus rhythm Left anterior fascicular block Prolonged QT Abnormal ECG When compared with ECG of 02-FEB-2023 11:08, No significant change was found Confirmed by Moise Clement ([id number]) on 02/03/2023 7:52:14 AM Referred By: REFERRED SELF Confirmed By:Moise Clement
--- NOTE | 2023-02-03 07:52 | Electrocardiogram Report ---
Test Reason : Blood Pressure : / mmHG Vent. Rate : 086 BPM Atrial Rate : 086 BPM P-R Int : 176 ms QRS Dur : 104 ms QT Int : 396 ms P-R-T Axes : 046 -37 026 degrees QTc Int : 473 ms Normal sinus rhythm Left anterior fascicular block Abnormal ECG When compared with ECG of 10-MAY-2020 15:25, No significant change was found Confirmed by Moise Clement ([id number]) on 02/03/2023 7:51:59 AM Referred By: REFERRED SELF Confirmed By:Moise Clement
--- NOTE | 2023-02-03 07:52 | Electrocardiogram Report ---
Test Reason : Blood Pressure : / mmHG Vent. Rate : 076 BPM Atrial Rate : 076 BPM P-R Int : 184 ms QRS Dur : 096 ms QT Int : 436 ms P-R-T Axes : 044 -29 024 degrees QTc Int : 490 ms Normal sinus rhythm Prolonged QT Abnormal ECG When compared with ECG of 02-FEB-2023 11:49, No significant change was found Confirmed by Moise Clement ([id number]) on 02/03/2023 7:51:44 AM Referred By: REFERRED SELF Confirmed By:Moise Clement
[2023-02-03] MEDS: ICU Protocol for HYPERglycemia SCH ×2 (07:59→11:31)
[2023-02-03] MEDS ORDERED: carvediloL 12.5 MG TAB PO SCH (08:00)
[2023-02-03] MEDS: LABETALOL HCL IV 5 MG/ML 20ML IV PRN ×2 (08:35→13:16)
--- NOTE | 2023-02-03 09:54 | Neurology Consultation ---
Date of Consultation February 03, 2023 Assessment & Plan (1) Spell of generalized weakness: Gary Bush presents with a constellation of symptoms including myoclonus, generalized weakness, peripheral numbness, speech changes, vision changes and a frontal headache. Without focal signs and a negative CTA and MRI I do not suspect that this was a stroke or TIA. Rather these symptoms are more likely caused by hypercarbia - perhaps due to the propane heater or perhaps hypertensive urgency. There was no medications or substances taken that would have caused these symptoms but caffeine overdose for example would also fit. More importantly we are overall reassured by the negative testing. He can remain on aspirin and crestor for stroke prevention and follow-up with his PCP for the hypertension. -- No further neurologic workup, presentation not consistent with stroke or TIA -- Continue aspirin and crestor -- PCP follow-up for HTN Telehealth Consultation Telehealth Information Telehealth Information: I performed this visit using a real-time telehealth connection between my location and the patients location ([facility]). After connecting through interactive tele-video, patient was identified by name and date of and/or wristband check.Patient (or authorized healthcare liability claims representative) was informed that this was a telemedicine visit and it was being conducted confidentially over secure lines. My office door was closed and no one else was present in the room with me.Patient (or authorized healthcare liability claims representative) provided consent to proceed with the visit, expressed an understanding of privacy and security of the telemedicine visit, and gave permission to have a hospital liability claims representative in the room in order to assist with the visit and to conduct portions of the visit, as needed. I informed the patient (or authorized healthcare liability claims representative) that I reviewed their record and presented the opportunity for them to ask any questions regarding the visit today. The patient agreed to participate. History of Present Illness Reason for Consultation: Spell Requesting Physician: Dr. Wilcox Attending Physician: Jordin Wilcox MD History of Present Illness Gary Bush is a 67 yo M presenting with an episode of vision changes, generalized weakness and word finding difficulties. The patient was hunting in his blind with a propane heater. He felt his vision was wavy and became dizzy. He remembers having numbness of the bilateral lower extremities and weakness to the point that he needed assistance to walk. In talking with EMS he was having word finding difficulty as well. He also describes uncontrolled jerking motions of the arms and a frontal headache. Although he has not yet tried to walk he does feel back to normal. He has no history of stroke or hypertension but blood pressure was high yesterday. Allergies Allergy/AdvReac Type Severity Reaction Status Date / Time hydrocodone Allergy Verified 06/05/22 10:09 acetaminophen [From Percocet] AdvReac Verified 06/05/22 10:09 oxycodone [From Percocet] AdvReac Verified 06/05/22 10:09 LORCET Allergy Mild Itching Uncoded 06/05/22 10:09 Home Medications Medication Instructions Recorded Confirmed Type B-complex with vitamin C 1 cap PO HS 05/04/20 02/02/23 History aspirin 81 mg tablet,delayed 81 mg PO HS 05/04/20 02/02/23 History release (Adult Low Dose Aspirin) cholecalciferol (vitamin D3) 25 1,000 units PO QAM 05/04/20 02/02/23 History mcg (1,000 unit) capsule ezetimibe 10 mg tablet (Zetia) 10 mg PO HS 05/04/20 02/02/23 History levothyroxine 88 mcg capsule 88 mcg PO QAM 05/04/20 02/02/23 History multivitamin (Multiple Vitamins 1 tab PO HS 05/04/20 02/02/23 History tablet) omeprazole 20 mg tablet,delayed 20 mg PO QAM 05/04/20 02/02/23 History release ranolazine 1,000 mg 1,000 mg PO Q12 05/04/20 02/02/23 History tablet,extended release,12 hr rosuvastatin 40 mg tablet (Crestor) 40 mg PO HS 05/04/20 02/02/23 History nitroglycerin 0.4 mg sublingual 0.4 mg sublingual Q5M PRN chest 06/05/22 02/02/23 Rx tablet pain #25 tabs carvedilol 12.5 mg tablet 12.5 mg PO BID 02/02/23 02/02/23 History Patient History Medical History Rib fracture Mechanical fall 04/17/19 > Acute/subacute nondisplaced right lateral 7th rib fracture per 05/06/20 CT > pt reports residual rib pain but improving 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 Did not have formal testing at time of symptoms but did have COVID antibodies test 04/19/20 positive ([facility]) Chronic back pain RLE radiculopathy Osteoarthritis Hypothyroidism Depression Nonspecific reaction to 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 subsequent negative CXR Dyslipidemia Hypertension CAD (coronary artery disease) stent x1 to LAD (2003) Surgical History History of foot surgery Left great toe History of colonoscopy History of esophagogastroduodenoscopy (EGD) History of cardiac cath 2003 (stent x1), 2015 (no stent) H/O hernia repair Family History Grandfather (Maternal) Coronary heart disease Grandmother (Maternal) Family history of diabetes mellitus Father Family hx of colon cancer Social History Smoking Status: Never smoker Second Hand Exposure: No; Do You Dip or Chew Tobacco: No; Hx Alcohol Use: Yes Alcohol type: wine Hx Substance Use: No Preferred Language: Persian Communication Ability: Effective Senior Supply Chain Analyst Required: No Beliefs That Will Affect Care: None marital status: Current Living Situation: Spouse current occupational status: retired current occupation: Psychologist Feels Safe at Home: Yes Assistive Devices: Glasses and Hearing Aid - Bilateral Review of Systems +weakness, vision changes, tremor - resolved Physical Exam Neurological Examination: Mental Status: Awake and alert. Oriented to person, place, and time. Fluent. Comprehension intact. Affect appropriate. Cranial Nerves: II: pupils 3/3 to 2/2 III/IV/: Versions intact without nystagmus VII: Facial expression symmetric VIII: Hearing intact to voice Motor: Pronator drift was absent. There were no abnormal movements. Coordination: Movements were non-ataxic Reflexes: Unable to assess over telemedicine Results & Data Vital Signs (Past 12 Hours) Vital Signs Temp Pulse Pulse Resp BP BP Pulse Ox 02/03/23 09:00 80 16 149/75 H 94 02/03/23 08:46 81 148/77 H 02/03/23 08:35 84 161/77 H 02/03/23 08:00 86 14 153/82 H 95 02/03/23 07:20 69 02/03/23 07:00 36.9 C 88 16 180/89 H 94 02/03/23 06:34 65 12 142/72 H 02/03/23 06:31 69 8 L 160/86 H 92 02/03/23 06:30 68 15 92 02/03/23 06:00 65 2 L 142/72 H 94 02/03/23 05:50 36.7 C 02/03/23 05:34 69 14 139/73 02/03/23 05:30 69 14 157/71 H 96 02/03/23 05:00 66 1 L 139/73 93 02/03/23 04:34 67 14 137/77 02/03/23 04:30 72 18 141/80 H 93 02/03/23 04:00 67 14 137/77 94 02/03/23 03:34 71 14 142/59 H 02/03/23 03:30 81 13 153/76 H 92 02/03/23 03:00 71 14 142/57 H 90 02/03/23 02:34 68 12 128/61 02/03/23 02:30 70 18 93 02/03/23 02:00 68 12 128/61 93 02/03/23 01:34 85 20 129/74 02/03/23 01:30 69 14 139/72 93 02/03/23 01:00 85 20 129/74 94 02/03/23 00:58 88 16 160/56 H 02/03/23 00:58 36.7 C 02/03/23 00:42 79 02/03/23 00:34 87 19 164/67 H 02/03/23 00:30 79 26 H 162/62 H 91 02/03/23 00:00 82 19 164/67 H 89 L 02/02/23 23:34 87 16 154/75 H 02/02/23 23:30 89 16 151/71 H 91 02/02/23 23:00 83 16 154/73 H 91 02/02/23 22:42 79 7 L 94 02/02/23 22:15 81 4 L 143/72 H 93 02/02/23 22:04 82 14 139/60 02/02/23 22:01 02/02/23 22:00 82 14 139/60 94 O2 Del Method O2 Flow Rate 02/03/23 09:00 Room Air 02/03/23 08:46 02/03/23 08:35 02/03/23 08:00 Room Air 02/03/23 07:20 02/03/23 07:00 Room Air 02/03/23 06:34 02/03/23 06:31 02/03/23 06:30 02/03/23 06:00 02/03/23 05:50 02/03/23 05:34 02/03/23 05:30 02/03/23 05:00 02/03/23 04:34 02/03/23 04:30 02/03/23 04:00 02/03/23 03:34 02/03/23 03:30 02/03/23 03:00 02/03/23 02:34 02/03/23 02:30 02/03/23 02:00 02/03/23 01:34 02/03/23 01:30 02/03/23 01:00 02/03/23 00:58 02/03/23 00:58 02/03/23 00:42 02/03/23 00:34 02/03/23 00:30 02/03/23 00:00 02/02/23 23:34 02/02/23 23:30 02/02/23 23:00 02/02/23 22:42 02/02/23 22:15 02/02/23 22:04 02/02/23 22:01 Nasal Cannula 1 02/02/23 22:00 Laboratory Results Abnormal lab results 02/02/23 02/02/23 02/03/23 Range/Units 11:20 21:05 04:10 RBC 4.56 L 4.17 L (4.70-6.10) M/uL Hgb 13.8 L 12.6 L (14.0-18.0) g/dl Hct 40.6 L 36.6 L (42.0-52.0) % MPV 8.7 L 8.4 L (9.4-12.4) fL Lymph # (Auto) 0.98 L (1.20-3.40) K/uL Loup # (Auto) 0.81 H (0.11-0.59) K/uL BUN/Creatinine Ratio 20.2 H (10-20) Glucose 107 H 106 H (70-99(Fasting)) mg/dl POC Glucose 123 H (70-99) mg/dl Triglycerides 238 H (0-150) mg/dl Cholesterol 201 H (0-200) mg/dl VLDL Cholesterol, Calc 48 H (0-30) mg/dl Cholesterol/HDL Ratio 5.3 H (0-5) Diagnostic Findings CTA - Unremarkable MRI brain - Unremarkable
--- NOTE | 2023-02-03 12:58 | Discharge Summary ---
Date of Service February 03, 2023 Admission HPI Per Admitting Provider This is a 67-year-old male who has significant past medical history of CAD, HTN, HLD, hypothyroidism, hyperuricemia, IPMN, GERD, depression and history of alcoholism who presents to ED via EMS due to feeling like his, "surroundings were off." He was out hunting this morning when approximately at 915 he was sitting in a hunting blind with a propane heater and felt like his, "surroundings were off." He felt off balance and felt like something was going on with his vision. He then tried to get out of the blind when he stumbled and fell. He felt generally weak. His grandson was with him. His grandson helped him to the camp where EMS was summoned. He did not lose consciousness and there was no report of any slurred speech, facial droop or unilateral weakness. According to history provided by ED physician patient was having some word finding difficulties as it was taking him an extended duration of time to figure out what he wanted to say. Currently he complains of a bilateral frontal/sinus headache which started en route via EMS. He denies any prior history of migraine or headaches in the past. He denies any similar symptoms to this in the past. The patient overall felt very shaky and tremulous. He did take his morning medications. His last dose of aspirin was last evening as he takes this at bedtime. He does admit to prior history of CAD with a stent placement. He denies any recent illness, fever, chills, sweats, lightheadedness, dizziness, chest pain, shortness of breath, cough, nausea, vomiting or abdominal pain. Family members are at bedside. Patient was significantly hypertensive in ED. He required 2 rounds of IV labetalol with minimal improvement and therefore was started on a nicardipine drip due to administration of TNK. Telemetry neurology was consulted in ED who recommended TNK. Patient's symptoms have significantly improved. Family member at bedside states only new medication is he was recently taken off Bystolic and placed on carvedilol. Admission Exam Per Admitting Provider Constitutional: WD/WN, vitals as above, NAD, sitting up in bed, pleasant, conversing easily Head: Normocephalic, Atraumatic Eyes: PERRL, conjunctivae normal, anicteric sclerae ENMT: external ear and nose normal, oropharynx normal Neck: trachea midline, no thyromegaly normal visual inspection Respiratory: normal respiratory effort, lungs clear to auscultation, no wheeze, rales, rhonchi. Normal insp/exp effort, no accessory muscle use Cardiovascular: RRR, 1/6 CHERELLE noted rusb, no edema Vessels: no JVD or carotid bruit Chest: normal inspection of chest Abdomen: normal bowel sounds, soft, nontender, no hepatosplenomegaly Musculoskeletal: no cyanosis or clubbing, extremities motor strength 5/5 Skin: no rashes, warm and dry normal turgor Neurologic: PERRL, EOMI, accommodation nl, no face palsy, no dysarthria CN's II-XI intact bilaterally and moves all extremities Psychiatric: A+Ox3, euthymic affect Lymphatic: no cervical or axillary lymphadenopathy : deferred Principal Diagnosis Strokelike symptoms status post tPA Hypertensive emergency Discharge Exam Constitutional: WD/WN, vitals as above, NAD, sitting up in bed, pleasant, conversing easily Respiratory: normal respiratory effort, lungs clear to auscultation, no wheeze, rales, rhonchi. Normal insp/exp effort, no accessory muscle use Cardiovascular: RRR, no murmur, no edema Vessels: no JVD or carotid bruit Chest: normal inspection of chest Abdomen: normal bowel sounds, soft, nontender, no hepatosplenomegaly Musculoskeletal: no cyanosis or clubbing, extremities motor strength 5/5 Skin: no rashes, warm and dry normal turgor Neurologic: PERRL, EOMI, accommodation nl, no face palsy, no dysarthria CN's II- XI intact bilaterally and moves all extremities Psychiatric: A+Ox3, euthymic affect Discharge Data Allergies Allergy/AdvReac Type Severity Reaction Status Date / Time hydrocodone Allergy Verified 06/05/22 10:09 acetaminophen [From Percocet] AdvReac Verified 06/05/22 10:09 oxycodone [From Percocet] AdvReac Verified 06/05/22 10:09 LORCET Allergy Mild Itching Uncoded 06/05/22 10:09 Consultations 02/02/23 13:33 ED Decision to Admit Stat 02/02/23 13:33 Consult Ophthalmologist Retina Specialist Routine 02/02/23 13:37 Consult Neurology Routine Ordered Studies 02/02/23 11:29 CT angio head w con Stat CT angio neck with con Stat CT head/brain wo con Stat 02/02/23 13:25 CT head/brain wo con Stat 02/02/23 13:37 MR brain wo/w con Routine 02/02/23 22:[address] [CT head/brain wo con] Stat 02/03/23 13:35 CT head/brain wo con Routine Hospital Course (1) Stroke-like symptoms: (2) CAD (coronary artery disease): (3) Hypertension: (4) Dyslipidemia: Plan This is a 67-year-old male who has significant past medical history of CAD, HTN, HLD, hypothyroidism, hyperuricemia, IPMN, GERD, depression and history of alcoholism who presents to ED via EMS due to feeling like his, "surroundings were off." Patient reported to strokelike symptoms which include visual changes and difficulty getting words out. Patient underwent evaluation by teleneuro; was given tPA. Patient was also found to have very high blood pressure for which he was placed on nicardipine drip. Patient was admitted to ICU for further care after the tPA. MRI of the brain did not show any stroke. Repeat CT head did not show any bleeding. Patient's blood pressure down trended after resumption of his home antihypertensives. Neurology was consulted for comanagement; the symptoms not likely are due to strokes but likely caused by hypercarbia. Patient was alert oriented x 3 at the time of discharge. He did not have any weakness. Echocardiogram showed EF of 60 to 65% with grade 1 diastolic dysfunction. Telemetry did not show any abnormal arrhythmias. Patient was discharged home with instruction to follow-up with PCP. Please note the above document was generated using voice recognition software. It may contain grammatical, syntax or spelling errors. Any formal questions or concerns about the content, text or information contained within the body of this dictation should be directly addressed to the provider for clarification Total Time Total Time Spent Total Time Spent (In Minutes): 45 Total Time Includes: Examination of the Patient, Discharge Planning, Medication Reconciliation, Communication With Other Providers and Other Discharge Plan Discharge Items Patient Disposition: Home - Self-Care Reason For Visit: STROKE, HTN EMERGENCY Discharge Diagnosis: Strokelike symptoms status post tPA Hypertensive emergency Condition on Discharge: Good Activity: Resume your previous activity Non-emergency contact: Primary Care Provider Call non-emergency contact if: you have any medication questions and your symptoms worsen Follow-up/Referrals: Moise Parish MD [Primary Care Provider] - Diet: Regular Addtl Attending Provider Instructions: You were admitted to the hospital due to concern for stroke. You received medication for a stroke reversal. The repeat CT of the head did not show any bleeding. The MRI of the brain did not show any stroke. Please continue to take aspirin and rosuvastatin as prescribed. Please continue to take Coreg 12.5 mg twice daily for high blood pressure. Please measure blood pressure at the same time in the morning. Please be in a seated position with both feet on the ground and arm rested and rest for 5 dolores benjamin before measuring your blood pressure. Please make a note of your blood pressure reading. Take this to your primary care doctor and discuss about adding any further medication. Pending Studies at Discharge: No Stand-Alone Forms: [facility] [employer], Smoking Cessation Medications and DC Order Prescriptions: Continued nitroglycerin 0.4 mg tablet, sublingual 0.4 mg SL Q5M PRN (Reason: chest pain) Qty: 25 1RF Rx Instructions: until response; do not exceed 3 doses per episode aspirin [Adult Low Dose Aspirin] 81 mg tablet,delayed release (DR/EC) 81 mg PO HS cholecalciferol (vitamin D3) 1,000 unit capsule 1,000 units PO QAM B-complex with vitamin C capsule 1 cap PO HS ezetimibe [Zetia] 10 mg tablet 10 mg PO HS levothyroxine 88 mcg capsule 88 mcg PO QAM multivitamin [Multiple Vitamins] tablet 1 tab PO HS rosuvastatin [Crestor] 40 mg tablet 40 mg PO HS ranolazine 1,000 mg tablet extended release 12 hr 1,000 mg PO Q12 omeprazole 20 mg tablet,delayed release (DR/EC) 20 mg PO QAM carvedilol 12.5 mg Tablet 12.5 mg PO BID Rx Instructions: must administer with a meal/food Admission Data Admit Date/Time: 02/02/23 13:33 Attending Provider: Jordin Wilcox Admit Provider: Kary Winters Primary Care Provider: Moise Parish Other Providers: Ramone Phelps; Moise Jara; Kary Winters
[2023-02-03] MEDS: ACETAMINOPHEN 325 MG TAB PO PRN (13:31)
--- NOTE | 2023-02-03 13:41 | CT Scan Report ---
CT head/brain wo con CLINICAL HISTORY: Post TPA/TNK 24 hour Technique: Contiguous axial CT images of the head were acquired from the base of the skull to the kirti rachel without intravenous contrast administration. Images were viewed in brain, subdural and [facility]. Automated dose lowering techniques and/or adjustment according to patient size were utilized for this exam. Comparison: Comparison is made to CT head 02/02/2023 Findings: The ventricles, basal cisterns, and cerebral sulci are normal. There is no acute intracranial hemorrh age or evidence of acute territorial infarction. Neither mass effect, shift of the midline structures , nor abnormal extra-axial fluid collections are shown. Imaged portions of the paranasal sinuses and mastoid air cells are clear. The orbits appear normal. There are no acute fractures of the calvaria or scalp swelling. Impression: No acute abnormality and in particular no evidence of hemorrhagic transformation. ACT 112: Negative or not required by law. Electronically signed by: Jf Myers M.D. 02/03/2023 1:40 PM
[2023-02-03] MEDS ORDERED: STROKE PATIENT DISCHARGE STA (13:59)
[2023-02-04 07:42] LABS: Estimated Average Glucose 114 mg/dl; Hemoglobin A1C 5.6 % (4.5-5.6)
--- NOTE | 2023-02-05 16:28 | Discharge Summary ---
Date of Service February 04, 2023 Admission HPI Per Admitting Provider This is a 67-year-old male who has significant past medical history of CAD, HTN, HLD, hypothyroidism, hyperuricemia, IPMN, GERD, depression and history of alcoholism who presents to ED via EMS due to feeling like his, "surroundings were off." He was out hunting this morning when approximately at 915 he was sitting in a hunting blind with a propane heater and felt like his, "surroundings were off." He felt off balance and felt like something was going on with his vision. He then tried to get out of the blind when he stumbled and fell. He felt generally weak. His grandson was with him. His grandson helped him to the camp where EMS was summoned. He did not lose consciousness and there was no report of any slurred speech, facial droop or unilateral weakness. According to history provided by ED physician patient was having some word finding difficulties as it was taking him an extended duration of time to figure out what he wanted to say. Currently he complains of a bilateral frontal/sinus headache which started en route via EMS. He denies any prior history of migraine or headaches in the past. He denies any similar symptoms to this in the past. The patient overall felt very shaky and tremulous. He did take his morning medications. His last dose of aspirin was last evening as he takes this at bedtime. He does admit to prior history of CAD with a stent placement. He denies any recent illness, fever, chills, sweats, lightheadedness, dizziness, chest pain, shortness of breath, cough, nausea, vomiting or abdominal pain. Family members are at bedside. Patient was significantly hypertensive in ED. He required 2 rounds of IV labetalol with minimal improvement and therefore was started on a nicardipine drip due to administration of TNK. Telemetry neurology was consulted in ED who recommended TNK. Patient's symptoms have significantly improved. Family member at bedside states only new medication is he was recently taken off Bystolic and placed on carvedilol. Admission Exam Per Admitting Provider Constitutional: WD/WN, vitals as above, NAD, sitting up in bed, pleasant, conversing easily Head: Normocephalic, Atraumatic Eyes: PERRL, conjunctivae normal, anicteric sclerae ENMT: external ear and nose normal, oropharynx normal Neck: trachea midline, no thyromegaly normal visual inspection Respiratory: normal respiratory effort, lungs clear to auscultation, no wheeze, rales, rhonchi. Normal insp/exp effort, no accessory muscle use Cardiovascular: RRR, 1/6 CHERELLE noted rusb, no edema Vessels: no JVD or carotid bruit Chest: normal inspection of chest Abdomen: normal bowel sounds, soft, nontender, no hepatosplenomegaly Musculoskeletal: no cyanosis or clubbing, extremities motor strength 5/5 Skin: no rashes, warm and dry normal turgor Neurologic: PERRL, EOMI, accommodation nl, no face palsy, no dysarthria CN's II-XI intact bilaterally and moves all extremities Psychiatric: A+Ox3, euthymic affect Lymphatic: no cervical or axillary lymphadenopathy : deferred Principal Diagnosis Strokelike symptoms status post tPA Discharge Exam Constitutional: WD/WN, vitals as above, NAD, sitting up in bed, pleasant, conversing easily Respiratory: normal respiratory effort, lungs clear to auscultation, no wheeze, rales, rhonchi. Normal insp/exp effort, no accessory muscle use Cardiovascular: RRR, no murmur, no edema Vessels: no JVD or carotid bruit Chest: normal inspection of chest Abdomen: normal bowel sounds, soft, nontender, no hepatosplenomegaly Musculoskeletal: no cyanosis or clubbing, extremities motor strength 5/5 Skin: no rashes, warm and dry normal turgor Neurologic: PERRL, EOMI, accommodation nl, no face palsy, no dysarthria CN's II- XI intact bilaterally and moves all extremities Psychiatric: A+Ox3, euthymic affect Discharge Data Allergies Allergy/AdvReac Type Severity Reaction Status Date / Time hydrocodone Allergy Verified 06/05/22 10:09 acetaminophen [From Percocet] AdvReac Verified 06/05/22 10:09 oxycodone [From Percocet] AdvReac Verified 06/05/22 10:09 LORCET Allergy Mild Itching Uncoded 06/05/22 10:09 Consultations 02/02/23 13:33 ED Decision to Admit Stat 02/02/23 13:33 Consult Software Quality Engineer Routine 02/02/23 13:37 Consult Neurology Routine Ordered Studies 02/02/23 11:29 CT angio head w con Stat CT angio neck with con Stat CT head/brain wo con Stat 02/02/23 13:25 CT head/brain wo con Stat 02/02/23 13:37 MR brain wo/w con Routine 02/02/23 22:[address] [CT head/brain wo con] Stat 02/03/23 13:35 CT head/brain wo con Routine Hospital Course (1) Stroke-like symptoms: (2) CAD (coronary artery disease): (3) Hypertension: (4) Dyslipidemia: Plan 67-year-old male with history of coronary disease and hypertension admitted with strokelike symptoms. Patient was given tPA as per tele-neuro recommendation. Patient was admitted to ICU for closer monitoring. MRI brain did not show any stroke. Echocardiogram showed EF of 60 to 65% with grade [address] head 24 hours after the tPA did not show any hemorrhagic transformation Patient was neurologically intact. Neurology evaluated the patient; the symptoms are most likely caused by hypercarbia rather than stroke. Patient ambulated in the hallways without any difficulty at discharge. No medication changes were done. Please note the above document was generated using voice recognition software. It may contain grammatical, syntax or spelling errors. Any formal questions or concerns about the content, text or information contained within the body of this dictation should be directly addressed to the provider for clarification Total Time Total Time Spent Total Time Spent (In Minutes): 45 Discharge Plan Discharge Items Patient Disposition: Home - Self-Care Reason For Visit: STROKE, HTN EMERGENCY Discharge Diagnosis: Strokelike symptoms status post tPA Hypertensive emergency Condition on Discharge: Good Activity: Resume your previous activity Non-emergency contact: Primary Care Provider Call non-emergency contact if: you have any medication questions and your symptoms worsen Follow-up/Referrals: Moise Parish MD [Primary Care Provider] - Diet: Regular Addtl Attending Provider Instructions: You were admitted to the hospital due to concern for stroke. You received medication for a stroke reversal. The repeat CT of the head did not show any bleeding. The MRI of the brain did not show any stroke. Please continue to take aspirin and rosuvastatin as prescribed. Please continue to take Coreg 12.5 mg twice daily for high blood pressure. Please measure blood pressure at the same time in the morning. Please be in a seated position with both feet on the ground and arm rested and rest for 5 minutes before measuring your blood pressure. Please make a note of your blood pressure reading. Take this to your primary care doctor and discuss about adding any further medication. Pending Studies at Discharge: No Stand-Alone Forms: My [facility], Smoking Cessation Medications and DC Order Prescriptions: Continued nitroglycerin 0.4 mg tablet, sublingual 0.4 mg SL Q5M PRN (Reason: chest pain) Qty: 25 1RF Rx Instructions: until response; do not exceed 3 doses per episode aspirin [Adult Low Dose Aspirin] 81 mg tablet,delayed release (DR/EC) 81 mg PO HS cholecalciferol (vitamin D3) 1,000 unit capsule 1,000 units PO QAM B-complex with vitamin C capsule 1 cap PO HS ezetimibe [Zetia] 10 mg tablet 10 mg PO HS levothyroxine 88 mcg capsule 88 mcg PO QAM multivitamin [Multiple Vitamins] tablet 1 tab PO HS rosuvastatin [Crestor] 40 mg tablet 40 mg PO HS ranolazine 1,000 mg tablet extended release 12 hr 1,000 mg PO Q12 omeprazole 20 mg tablet,delayed release (DR/EC) 20 mg PO QAM carvedilol 12.5 mg Tablet 12.5 mg PO BID Rx Instructions: must administer with a meal/food Discharge Orders: Discharge Order (Routine); Ordered 02/03/23 Ordered By: Jordin Wilcox Admission Data Admit Date/Time: 02/02/23 13:33 Attending Provider: Jordin Wilcox Admit Provider: Kary Winters Primary Care Provider: Moise Parish Other Providers: Ramone Phelps; Moise Jara; Kary Winters Other Interventions: Discharge Summary Assessment (RN) Last Done: 02/03/23 14:18
== END 2023-02-03 14:35 | disposition home or self-care (01) | DRG 91 ==
LOC: ED 10:57 → SUATTDRO 13:33 → 1E 13:33

== ENCOUNTER 2023-11-07 18:39 | Observation (INO) ==
--- NOTE | 2023-11-07 18:53 | Emergency Department Note ---
Impression & Plan Witnessed seizure-like activity ADMIT ED Provider Note HPI: History obtained from patient, patient's son at the bedside, EMS report. The patient is a 68-year-old gentleman with history of coronary artery disease, presents the emergency department with a chief complaint of seizure-like activity. According to the patient's son at the bedside, the patient was at home with his and he was taking a nap when he began to have some tonic- clonic type activity. This lasted for several minutes and 911 was contacted. By the time the EMS crew arrived the patient was becoming more alert, he still seemed postictal and confused. On arrival here to the ED the patient appears to be back to his baseline mental status, he does not have any focal deficits, he denies any recent illness, he states the last thing he remembers is waking up when they were loading him into the stretcher to go into the ambulance. ROS: - Per HPI Differential Diagnosis: Stroke, intracranial hemorrhage, brain tumor, new onset seizure disorder, acute coronary syndrome, TIA, hyponatremia, alcohol withdrawal, amongst other potential pathologies. *Outpatient medications and allergy history reviewed. PE: General: Alert HEENT: Normocephalic, trachea midline Eyes: Extraocular eye movement is intact, no scleral erythema Pulmonary: Clear to auscultation bilaterally, no wheezing Cardio: Regular rate and rhythm GI: Abdomen is soft to palpation : No suprapubic tenderness MSK: No evidence of trauma or malformation of the extremities, no edema Skin: No evidence of rash Neuro: Alert, no focal deficits, equal bilateral turbine mechanic strength, symmetrical facial movements are appreciated, there is no drift of the upper extremities or lower extremities with testing against gravity Psychiatric: Cooperative INDEPENDENT INTERPRETATIONS: quality assurance monitor chassis: (As interpreted by myself): - An order was placed for continuous cardiac monitoring - Patient was noted to be in sinus rhythm with a rate of 80 EKG: (As interpreted by myself): Rate: 87 Rhythm: Normal sinus rhythm Intervals: Within normal limits ST changes: No ST elevation Time: 1846 Interventions provided in ED: -IV fluid bolus, IV Keppra Medical Decision Making: IV was established and lab work obtained, patient was placed on cardiac catheterization technician. Lab work shows no leukocytosis, hemoglobin is stable at 13.0, platelet count is slightly reduced at 129, CMP does not show any evidence of any critical findings, troponin is negative, EKG per my interpretation shows normal sinus rhythm. CT imaging of the head was obtained that did not show any evidence of any acute intracranial process. On my reassessment the patient remains resting comfortably in bed, he is alert and oriented and without focal deficits, unclear source for the patient's event earlier today but he has no history of seizure. I think would be reasonable to admit him to the hospital for neurology consultation and for observation overnight should he have any further events. Patient and his son at the bedside are in agreement to this plan. Case was discussed with the on-call hospitalist, Dr. Nelson, the patient was placed for admission in stable condition. Consultants/Discussions held with other healthcare providers: -Hospitalist, Dr. Nelson Disposition discussion held by myself with: -Patient Diagnosis: 1. Seizure-like activity, acute Disposition: Admission Murray Roland DO Emergency Medicine Past Med/Surg History Problem List (Updated 11/07/23 @ 23:47 by Murray Roland DO) Witnessed seizure-like activity (Acute) Nausea (Acute) Headache (Acute) Fall (Acute) Involuntary trembling (Acute) Weakness (Acute) Stuttering (Acute) Hypertension (Acute) Stroke-like symptoms Medication monitoring encounter Neurogenic claudication due to lumbar spinal stenosis Sleep apnea (Acute) Nephrolithiasis (Acute) Generalized osteoarthritis of multiple sites (Acute) Esophageal reflux (Acute) Benign prostatic hyperplasia (Acute) Antiplatelet or antithrombotic long-term use Presence of drug coated stent in LAD coronary artery Dyslipidemia Hypertension CAD (coronary artery disease) stent x1 to LAD (2003) Medical History 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 Spell of generalized weakness Rib fracture Tremor of both hands History of COVID-19 Chronic back pain Osteoarthritis Hypothyroidism Depression Nonspecific reaction to 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 Dyslipidemia Hypertension CAD (coronary artery disease) Surgical History History of foot surgery History of colonoscopy History of esophagogastroduodenoscopy (EGD) History of cardiac cath H/O hernia repair Family History Grandfather (Maternal) Coronary heart disease Grandmother (Maternal) Family history of diabetes mellitus Father Family hx of colon cancer Social History Smoking Status: Never smoker Second Hand Exposure: No; Do You Dip or Chew Tobacco: No; Hx Alcohol Use: Yes Alcohol type: wine Hx Substance Use: No Preferred Language: Taiwanese Communication Ability: Effective Supervisor Machine Workers Required: No Beliefs That Will Affect Care: None marital status: Current Living Situation: Spouse current occupational status: retired current occupation: Psychologist Feels Safe at Home: Yes Assistive Devices: Glasses and Hearing Aid - Bilateral Allergies Allergies Allergy/AdvReac Type Severity Reaction Status Date / Time bee venom protein (honey bee) Allergy Severe Anaphylaxis Verified 11/07/23 21:06 hydrocodone Allergy Intermediate Itching Verified 11/07/23 21:05 oxycodone [From Percocet] Allergy Intermediate Itching Verified 11/07/23 21:05 Home Meds Home Medications Medication Instructions Recorded Confirmed aspirin 81 mg tablet,delayed 162 mg PO DAILY 05/04/20 11/07/23 release (Adult Low Dose Aspirin) levothyroxine 88 mcg capsule 88 mcg PO DAILYBB 05/04/20 11/07/23 multivitamin (Multiple Vitamins 1 tab PO DAILY 05/04/20 11/07/23 tablet) omeprazole 20 mg tablet,delayed 20 mg PO DAILYBB 05/04/20 11/07/23 release rosuvastatin 40 mg tablet (Crestor) 40 mg PO HS 05/04/20 11/07/23 carvedilol 12.5 mg tablet 12.5 mg PO BID 02/02/23 11/07/23 cholecalciferol (vitamin D3) 10 10 mcg PO DAILY 11/07/23 11/07/23 mcg (400 unit) capsule (Vitamin D3) lidocaine 5 % topical patch 1 patch topical DAILY PRN Pain 11/07/23 11/07/23 loratadine 10 mg tablet (Claritin) 10 mg PO DAILY 11/07/23 11/07/23 losartan 50 mg tablet 50 mg PO DAILY 11/07/23 11/07/23 methyl salicylate 15 %-menthol 10 1 applic topical TID PRN Pain 11/07/23 11/07/23 % topical cream metronidazole 0.75 % topical cream 1 applic topical HS 11/07/23 11/07/23 tizanidine 4 mg tablet 4 mg PO HS PRN MUSCLE SPASMS 11/07/23 11/07/23 turmeric 400 mg capsule 400 mg PO DAILY 11/07/23 11/07/23 Previous Rx's Medication Instructions Recorded ranolazine 500 mg tablet,extended 500 mg PO BID #180 tabs 03/28/23 release,12 hr Results & Data (ED) Vital Signs Vital Signs - 24 hr 11/07/23 18:49 11/07/23 18:52 11/07/23 20:25 Temperature 36.9 C Temperature Source Oral Pulse Rate 87 89 Pulse Rate [Apical] Pulse Rhythm [Apical] Pulse Strength [Apical] Respiratory Rate 18 Respiratory Effort / Characteristics Non-Labored Spontaneous Respiratory Depth Normal Respiratory Pattern Blood Pressure 158/101 H Blood Pressure [Right Arm] Blood Pressure Mean 120 Blood Pressure Mean [Right Arm] Blood Pressure Position [Right Arm] Pulse Oximetry 92 96 Oxygen Delivery Method Room Air Room Air Sepsis Recent Fever Within 48 Hours No Sepsis New/Unexplained Change in Mental Status N/A Sepsis Action Taken by Nursing No Action Required 11/07/23 21:00 11/07/23 22:44 Temperature Temperature Source Pulse Rate 79 Pulse Rate [Apical] 72 Pulse Rhythm [Apical] Regular Pulse Strength [Apical] Normal Respiratory Rate 18 Respiratory Effort / Characteristics Non-Labored Spontaneous Respiratory Depth Normal Respiratory Pattern Regular Blood Pressure Blood Pressure [Right Arm] 160/84 H Blood Pressure Mean Blood Pressure Mean [Right Arm] 109 Blood Pressure Position [Right Arm] Lying Pulse Oximetry 96 Oxygen Delivery Method Room Air Sepsis Recent Fever Within 48 Hours Sepsis New/Unexplained Change in Mental Status Sepsis Action Taken by Nursing Laboratory Data 11/07/23 19:09 11/07/23 19:09 Lab Results 11/07/23 Range/Units 19:09 WBC 6.19 (4.8-10.8) K/ul RBC 4.73 (4.70-6.10) M/uL Hgb 13.0 L (14.0-18.0) g/dl Hct 40.0 L (42.0-52.0) % MCV 84.6 (80.0-100.0) fL MCH 27.5 (25.0-34.0) pg MCHC 32.5 (32.0-36.0) g/dL RDW Std Deviation 39.9 (36.4-46.3) fL RDW Coeff of [place] 13.0 (11.5-14.5) % Plt Count 129 L (130-400) K/uL MPV 8.8 L (9.4-12.4) fL Immature Gran % (Auto) 4.2 % Neut % (Auto) 64.0 % Lymph % (Auto) 11.3 % [place] % (Auto) 18.1 % Eos % (Auto) 1.8 % Baso % (Auto) 0.6 % Neut # (Auto) 3.96 (1.40-6.50) K/uL Lymph # (Auto) 0.70 L (1.20-3.40) K/uL [place] # (Auto) 1.12 H (0.11-0.59) K/uL Eos # (Auto) 0.11 (0.00-0.50) K/uL Baso # (Auto) 0.04 (0.00-0.20) K/uL Immature Gran # (Auto) 0.26 H (0.01-0.20) K/uL Sodium 136 (136-145) mmol/L Potassium 3.8 (3.5-5.1) mmol/L Chloride 104 (98-107) mmol/L Carbon Dioxide 25 (21-32) mmol/L Anion Gap 7 (3-11) BUN 18 (6-23) mg/dl Creatinine 1.09 (0.6-1.4) mg/dl Est Cr Clr Drug Dosing 79.3 ml/min Est GFR ( Amer) 79.8 ml/min Est GFR (Non-Af Amer) 68.9 ml/min BUN/Creatinine Ratio 16.5 (10-20) Glucose 119 H (70-99(Fasting)) mg/dl Calcium 9.1 (8.6-10.3) mg/dl Total Bilirubin 0.4 (0.2-1.0) mg/dl AST 22 (13-39) U/L ALT 23 (7-52) U/L Alkaline Phosphatase 57 (34-104) U/L Troponin I High Sens 13.9 (0-20) pg/ml Total Protein 7.3 (6.0-8.3) gm/dl Albumin 4.2 (3.4-5.0) gm/dl Globulin 3.1 (2.5-4.0) gm/dl Albumin/Globulin Ratio 1.4 (0.9-2) Administered Medications Discontinued Medications Sodium Chloride (Nss) 1,000 mls @ 999 mls/hr IV .Q1H1M ONE Stop: 11/07/23 19:51 Last Infusion: 11/07/23 21:12 Dose: Infused Documented By: Admin: 11/07/23 19:47 Dose: 999 mls/hr Documented By: IDD Levetiracetam (Levetiracetam 500 Mg/5 Ml Vial) 1,000 mg IV NOW STA Stop: 11/07/23 18:52 Last Admin: 11/07/23 19:47 Dose: 1,000 mg Documented By: IDD Oxycodone HCl (Oxycodone Hcl Ir 5 Mg Tab (Immediate Release)) 5 mg PO NOW STA Stop: 11/07/23 20:45 Last Admin: 11/07/23 21:11 Dose: 5 mg Documented By: IDD Imaging Data Radiologist's Impression: Head CT 11/07/23 18:51 Exam(s): CT HEAD Without Contrast EXAM: CT Head Without Intravenous Contrast CLINICAL HISTORY: Reason for exam: Seizure. TECHNIQUE: Axial computed tomography images of the head/brain without intravenous contrast. CTDI is 35.65 mGy and DLP is 703.85 mGy-cm. Automated exposure control was utilized for the study. A dose lowering technique was utilized adhering to the principles of ALARA. COMPARISON: 02/03/23 FINDINGS: Brain: Unremarkable. No hemorrhage. No significant white matter disease. No edema. No midline shift. [place]-white matter differentiation maintained. Ventricles: Unremarkable. No hydrocephalus. Bones/joints: Unremarkable. No acute fracture. Soft tissues: Unremarkable. Sinuses: Unremarkable as visualized. Mastoid air cells: Unremarkable as visualized. No mastoid effusion. Vasculature: Intracranial atherosclerosis. IMPRESSION: No acute intracranial process. Electronically signed by: Laura Farias M.D. 11/07/23 20:02 PM Discharge Plan Visit Data Chief Complaint: Seizure ED Provider: Murray Roland Discharge Problem: Witnessed seizure-like activity Forms Stand Alone Forms: My [facility] [place] [employer] Prescriptions Prescriptions: No Action ranolazine 500 mg tablet extended release 12 hr 500 mg PO BID Qty: 180 3RF aspirin [Adult Low Dose Aspirin] 81 mg tablet,delayed release (DR/EC) 162 mg PO DAILY levothyroxine 88 mcg capsule 88 mcg PO DAILYBB multivitamin [Multiple Vitamins] tablet 1 tab PO DAILY rosuvastatin [Crestor] 40 mg tablet 40 mg PO HS omeprazole 20 mg tablet,delayed release (DR/EC) 20 mg PO DAILYBB carvedilol 12.5 mg Tablet 12.5 mg PO BID Rx Instructions: must administer with a meal/food losartan 50 mg Tablet 50 mg PO DAILY tizanidine 4 mg Tablet 4 mg PO HS PRN (Reason: MUSCLE SPASMS) lidocaine 5 % Adhesive Patch,Medicated 1 patch TOPICAL DAILY PRN (Reason: Pain) Rx Instructions: leave on most painful area for up to 12 hrs metronidazole 0.75 % Cream 1 applic TOPICAL HS Rx Instructions: APPLY SPARINGLY ON SKIN FOR ROSECEA loratadine [Claritin] 10 mg Tablet 10 mg PO DAILY cholecalciferol (vitamin D3) [Vitamin D3] 10 mcg (400 unit) Capsule 10 mcg PO DAILY [place] Greaseless 15-10 % Cream 1 applic TOPICAL TID PRN (Reason: Pain) turmeric 400 mg Capsule 400 mg PO DAILY Referrals Referrals: Moise Parish MD [Primary Care Provider] -
[2023-11-07 19:36] LABS: Basophils # (auto) 0.04 K/uL (0.00-0.20); Basophils % (auto) 0.6 %; Eosinophils # (auto) 0.11 K/uL (0.00-0.50); Eosinophils % (auto) 1.8 %; Immature Granulocytes # (auto) 0.26 K/uL (0.01-0.20); Immature Granulocytes % (auto) 4.2 %; Lymphocytes % (auto) 11.3 %; Mean Corpuscular Hemoglobin 27.5 pg (25.0-34.0); Mean Corpuscular Hgb Conc 32.5 g/dL (32.0-36.0); Mean Corpuscular Volume 84.6 fL (80.0-100.0); Mean Platelet Volume 8.8 fL (9.4-12.4); Monocytes # (auto) 1.12 K/uL (0.11-0.59); Monocytes % (auto) 18.1 %; Neutrophils # (auto) 3.96 K/uL (1.40-6.50); Platelet Count 129 K/uL (130-400); RDW Standard Deviation 39.9 fL (36.4-46.3); Red Blood Count 4.73 M/uL (4.70-6.10); White Blood Count 6.19 K/ul (4.8-10.8)
[2023-11-07] MEDS: levETIRAcetam 500 MG/5 ML VIAL IV STA (19:47)
[2023-11-07] MEDS: SODIUM CHLORIDE 0.9% 1,000 ML IV ONE (19:47)
[2023-11-07 19:55] LABS: Albumin Globulin Ratio 1.4 (0.9-2); Albumin Level 4.2 gm/dl (3.4-5.0); BUN Creatinine Ratio 16.5 (10-20); Bilirubin,Total 0.4 mg/dl (0.2-1.0); Calcium 9.1 mg/dl (8.6-10.3); Creatinine Clr Calc Pharmacy 79.3 ml/min; Est GFR (African American) 79.8 ml/min; Est GFR (Non-African American) 68.9 ml/min; Globulin 3.1 gm/dl (2.5-4.0); Potassium 3.8 mmol/L (3.5-5.1); Total Protein 7.3 gm/dl (6.0-8.3)
--- NOTE | 2023-11-07 20:03 | CT Scan Report ---
Exam(s): CT HEAD Without Contrast EXAM: CT Head Without Intravenous Contrast CLINICAL HISTORY: Reason for exam: Seizure. TECHNIQUE: Axial computed tomography images of the head/brain without intravenous contrast. CTDI is 35.65 mGy and DLP is 703.85 mGy-cm. Automated exposure control was utilized for the study. A dose lowering technique was utilized adhering to the principles of ALARA. COMPARISON: 02/03/23 FINDINGS: Brain: Unremarkable. No hemorrhage. No significant white matter disease. No edema. No midline shift. [place]-white matter differentiation maintained. Ventricles: Unremarkable. No hydrocephalus. Bones/joints: Unremarkable. No acute fracture. Soft tissues: Unremarkable. Sinuses: Unremarkable as visualized. Mastoid air cells: Unremarkable as visualized. No mastoid effusion. Vasculature: Intracranial atherosclerosis. IMPRESSION: No acute intracranial process. Electronically signed by: Laura Farias M.D. 11/07/23 20:02 PM
[2023-11-07 20:32] LABS: Troponin I High Sensitivity 13.9 pg/ml (0-20)
[2023-11-07] MEDS: oxyCODONE HCL IR 5 MG TAB (IMMEDIATE RELEASE) PO STA (21:11)
--- OUTSIDE RECORDS SUMMARY | 2023-11-08 00:34 | External Medical Summary | Summary of Care ---
Author Name Unknown Organization [facility] Address [address] [facility] [place] [address] Phone [phone] Care Team Providers Care Icu Specialist Name Role Phone Ace Turk MD Primary Care Provider [phone] Reason for Visit * Reason Onset Date Comments Medication Refill 10/25/2023 Encounter Details Date Type Department Care Team (Late st Contact Info) Description 10/25/2023 Refill Family Practice [facility] [address] [place] [id number] Ace Turk MD [address] [place] [id number] Persistent insomnia Allergies Active Allergy Reactions Criticality Noted Date Comments Acetaminophen 01/31/2022 Bee Venom Rash Medium 03/26/2012 Honeybees Honey Bee Venom Anaphylaxis High 04/11/2021 Hydrocodone 01/31/2022 Hydrocodone-Acetaminophen 01/31/2022 Other reaction(s): Dermatological problems, e.g., rash, hives Propoxyphene N-Acetaminophen Hives 12/28/2009 Oxycodone Medium 12/08/2019 Other reaction(s): Itching, Skin irritation documented as of this encounter (statuses as of 10/28/2023) Medications Medication Sig Dispensed Refills Start Date End Date Status ASPIRIN 81 MG PO TABS 1 daily Active DAILY MULTIVITAMIN PO TABS 1 daily Active Cholecalciferol (VITAMIN D) 1000 UNIT Capsule Take 1 Capsule by mouth in the morning. Active EPINEPHrine, anaphylaxis, (EPI-PEN) 0.3 MG/0.3ML SOAJ injectionIndicatio ns:Bee sting allergy For a severe reaction: Place orange end against the outer thigh, press firmly, hold in place for 10 seconds and go to the Emergency room. 2 Each 3 07/08/2019 Active betamethasone dipropionate (DIPROSONE) 0.05 % creamIndications:S eborrheic dermatitis Apply topically to affected area 2 times a day. To affected area. 90 g 07/07/2019 Active metroNIDAZOLE, topical, (METROCREAM) 0.75 % creamIndications:D ermatitis Apply topically to affected area 2 times a day. apply to affected area. 45 g 07/07/2019 Active Fluticasone Propionate 50 MCG/ACT Nasal Suspension (Flonase)Indicatio ns:Seasonal allergic rhinitis due to pollen Administer 2 Sprays into each nostril in the morning. 16 g 05/29/2022 Active Loratadine 10 MG Oral CapsuleIndications :Allergic rhinitis due to pollen Take 1 Capsule by mouth in the morning. 90 Capsule 3 08/25/2022 Active Ezetimibe 10 MG Oral Tablet (Zetia)Indications :Atherosclerosis of [place] coronary artery of [place] heart without angina pectoris Take 1 Tablet by mouth in the morning. In the morning.. 30 Tablet 08/25/2022 Active Levothyroxine Sodium 88 MCG Oral Tablet (Levoxyl)Indicatio ns:Atherosclerosis of [place] coronary artery of [place] heart without angina pectoris,Hypothyro idism, acquired Take 1 Tablet by mouth daily first thing in the morning. (at least 30 min prior to breakfast or other meds) 90 Tablet 3 08/25/2022 Active Rosuvastatin Calcium 40 MG Oral Tablet (Crestor)Indicatio ns:Atherosclerosis of [place] coronary artery of [place] heart without angina pectoris Take 1 Tablet by mouth in the morning. In the morning.. 30 Tablet 09/25/2022 Active Carvedilol 12.5 MG Oral Tablet (Coreg) Take 1 Tablet by mouth in the morning and 1 Tablet before bedtime. 11/21/2022 Active Ranolazine ER 1000 MG Oral Tablet Extended Release 12 HourIndications:At herosclerosis of [place] coronary artery of [place] heart without angina pectoris Take 1 Tablet by mouth in the morning and 1 Tablet before bedtime. 60 Tablet 02/19/2023 Active Additional Information Patient taking differently: 500 mgOral BID (.AM/PM), Reported on 03/28/2023 Omeprazole Magnesium 20 MG Oral Tablet Delayed Release (PriLOSEC OTC) 1 Tablet. 04/19/2022 Active Cyclobenzaprine HCl 10 MG Oral Tablet (Flexeril) 1 Tablet. 10/15/2022 Active Doxepin HCl 6 MG Oral Tablet (Silenor) Take 1 Tablet by mouth at bedtime as needed. 10/15/2022 Active Lidocaine 5 % External Patch (Lidoderm) APPLY ONE PATCH TO SKIN EVERY DAY NEEDED FOR PAIN APPLY FOR 12 HOURS THEN REMOVE FOR 12 HOURS 10/15/2022 Active oxyCODONE-Acetamin ophen 5-325 MG Oral Tablet (Percocet) Take 1 Tablet by mouth every 4 hours as needed. Active Zolpidem Tartrate 10 MG Oral Tablet (Ambien)Indication s:Persistent insomnia Take 1 Tablet by mouth at bedtime as needed for Sleep. 15 Tablet 10/28/2023 Active Zolpidem Tartrate 10 MG Oral Tablet (Ambien)Indication s:Persistent insomnia Take 1 Tablet by mouth at bedtime as needed for Sleep. 15 Tablet 07/02/2023 Discontinue d(Refill) documented as of this encounter (statuses as of 10/28/2023) Active Problems Problem Noted Date Diagnosed Date History of TIA (transient ischemic attack) 02/11 Alcoholism in recovery 12/12/2021 IPMN (intraductal papillary mucinous neoplasm) 0 11/09/2020 Arthritis of carpometacarpal (CMC) joints of bot h thumbs 01/06/2020 Spinal stenosis of lumbar re gion with neurogenic claudication 12/29/2019 Rosacea 04/30/2018 Recurrent major depressive disorder, in full rem ission 01/01/2018 Persistent insomnia 12/27/2016 HTN, goal below 130/80 01/06/2016 Coronary artery disease invo lving [place] coronary artery of [place] heart without angina pectoris 11/09/2015 Gastroesophageal reflux disease with esophagitis 01/06/2015 Obesity, Class I, BMI 30.0-34.9 (see actual BMI) 01/06/2015 S/P angioplasty with stent 01/06/2015 Primary osteoarthritis involving multiple joints 01/06/2015 Hypothyroidism, acquired 10/04/2014 Dyslipidemia 12/28/2009 BPH with obstruction/lower urinary tract symptom s 12/28/2009 documented as of this encounter (statuses as of 10/28/2023) Resolved Problems Problem Noted Date Diagnosed Date Resolved Date Seasonal allergic rhinitis due to pollen 01/01/2018 02/11/2023 Chronic bilateral low back p ain without sciatica 11/09/2015 01/01/2018 Epigastric pain 11/09/2015 12/27/2016 Diarrhea 11/09/2015 12/27/2016 Ganglion cyst 11/09/2015 07/01/2017 Overview: 1st carpal/metacarpal joint at base of left thumb Tick bite 11/09/2015 12/27/2016 Overview: Questionable - Early October Atherosclerosis of [place] co ronary artery without angina pectoris 01/06/2015 [...] narcotic use 03/26/2012 014 Overview: Intermittant use Hyperuricuria 03/26/2012 02/11/2023 Hearing loss 03/26/2012 01/06/2015 Right kidney stone [...] as of this encounter (statuses as of 10/28/2023) Immunizations Name Administration Dates Next Due PPD 03/11/1994 Pneumococcal Conjugate Vacc, 13 Valent (Prevnar) 09/15/2019 Pneumococcal Polysaccharide PPV23 (Pneumovax) 03/30/2011 Season Influenza, Quad, PF, Adjuvanted, 65+ Yrs, IM (FLUAD) 12/29/2019 Seasonal Influenza, PF, 6 M & above, IM , (FluLaval or Fluzone) 12/04/2022,12/07/2021,12/27/2016 Seasonal Influenza, Quadriva lent, No Preserve, IM 02/28/2021,01/22/2018,02/15/2015 Seasonal Influenza, Split, I IV3, With Preserve, Inj 12/23/2015,11/01/2014,01/09/2014,11/24,12/05/2011,12/09/2010,12/27/2009 ,12/09/2006,12/09/2005,01/09/2005 TDAP, Age 7 and older, IM (Adacel) 03/30/2011 Varicella Zoster Vaccine (Adult) 11/01/2014 documented as of this encounter Social History Tobacco Use Types Packs/Day Years Used Date Smoking Tobacco: Never Smokeless Tobacco: Never Alcohol Use Standard Drinks/Week Comments Yes 0 (1 standard drink = 0.6 oz pur e alcohol) daily 1 bottle wine PHQ-2 Answer Date Recorded PHQ-2 Score 0 01/07/2019 Hunger Vital Sign Answer Date Recorded Worried About Running Out of Food in the Last Ye ar Never true 01/07/2019 Ran Out of Food in the Last Year Never true 01/07/2019 Utilities Answer Date Recorded Do you have trouble paying y our heating, water, or electric bill? (Adult - for ages 18 years and over) Not on file 08/27/2023 Is your family able to pay t he heat, water, or electric bill? (Household - for ages 0-17 years) Not on file 08/27/2023 Does your family have access to good internet? (Household - for ages 0-17 years) Not on file 08/27/2023 Social Connections Answer Date Recorded How often do you feel lonely or isolated from those around you? (Adult - for ages 18 years and over) Not on file 08/27/2023 Sex and Gender Information Value Date Recorded Sex Assigned at Not on file Gender Identity Not on file Sexual Orientation Not on file Job Start Date Occupation Industry Not on file Not on file Not on file documented as of this encounter Miscellaneous Notes * Telephone Encounter - Ace Turk MD - 10/28/2023 7:47 AM EDTSigned Prescriptions: Disp Refills Zolpidem Tartrate 10 MG Oral Tablet (Ambie*15 Tab*0 Sig: Take 1 Tablet by mouth at bedtime as needed for Sleep. Authorizing Provider: ACE TURK * Telephone Encounter - Rayna Drew [facility] - 10/28/2023 6:48 AM EDT Pending Prescriptions: Disp Refills Zolpidem Tartrate 10 MG Oral Tablet (Ambie*15 Tab*0 Sig: Take 1 Tablet by mouth at bedtime as needed for Sleep. * Telephone Encounter - Rayna Drew RPh - 10/28/2023 6:48 AM EDT I have reviewed the patients controlled substance dispensing history in the Prescription Drug Monitoring Program in compliance with the [facility] regulations before prescribing a controlled substance. PDMP checked on 10/28/2023. Pending Prescriptions: Disp Refills Zolpidem Tartrate 10 MG Oral Tablet (Ambi*15 Tab*0 Sig: Take 1 Tablet by mouth at bedtime as needed for Sleep. Last Visit: 02/11/2023 (in office), 05/05/2020 (telemedicine) Next Visit: Visit date not found Date medication was last filled: 07/01 Date medication is due for refill: 07/16 Pharmacy: [id number] Is this request for a controlled substance? Yes and Urine Drug Screen Not completed Toxicology results: No results found for this or any previous visit. Please approve if appropriate. Thank you, Rayna Drew, PharmD. Clinical Pharmacist [facility] 10/28/2023, 6:48 AM documented in this encounter Plan of Treatment Scheduled Procedures Name Priority Associated Diagnoses Date/Ti me COLONOSCOPY FLEXIBLE PROXIMA L DIAGNOSTIC Recall History of colonic polyps Family history of colon cancer Health Maintenance Due Date Last Done Comments Albumin/Creatinine Ratio 02/09/1972 Cologuard 1999 Fecal Occult Blood Test 1999 Sigmoidoscopy 1999 Adult Wellness Visit 02/09/2020 Pneumococcal Vaccine: 65+ Years (3 of 3 - PPSV23 or PCV20) 09/14/2020 09/15/2019, 03/30/2011 Depression Monitoring 12/28/2020 12/29/2019 DTaP,Tdap,and Td Vaccines (2 - Td or Tdap) 03/30/2021 03/30/2011 COVID-19 Vaccine (1 - 2022- season) 2022 GFR 04/03/2023 04/03/2022, 100 06/2021, 10/25/2020, Additional history exists TSH 04/03/2023 04/03/2022, 0405/2021, 02/13/2021, Additional history exists Influenza Vaccine (FLU shot) (#1) 2023 12/04/2022, 12/07/2021, 02/28/2021, Additional history exists Diabetes Screening 04/03/2025 04/03/2022, 1 , 10/25/2020, Additional history exists Colonoscopy 02/07/2027 02/07/2022, 01/11, 08/08/2016, Additional history exists Colorectal Cancer Screening 02/07/2027 Zoster Vaccines Completed 07/19/2021, 02/03/2021, 11/01/2014 RETIRED - COLONOSCOPY-EVERY 5 YRS AGES 18-100 Discontinued 02/07/2022, 02/07/2022, 08/08/2016, Additional history exists HPV (Gardasil) Vaccine Aged Out No lo nger eligible based on patient's age to complete this topic Hepatitis B Vaccine Aged Out No longe r eligible based on patient's age to complete this topic MENINGOCOCCAL (MENACTRA/MENVEO) Aged Out No longer eligible based on patient's age to complete this topic documented as of this encounter Medical Devices Not on filedocumented as of this encounter Visit Diagnoses Diagnosis Persistent insomnia Persistent disorder of initiating or maintaining sleep documented in this encounter Care Teams Icu Specialist Relationship Specialty Start Date End Date Ace Turk MD [address] [place] [id number] PCP - General Family Medicine 01/07/19 documented as of this encounter
--- NOTE | 2023-11-08 01:39 | History & Physical Report ---
Date of Service November 08, 2023 Assessment & Plan (1) Witnessed seizure-like activity: Plan: 68-year-old male with past medical history significant for hyperlipidemia, hypothyroidism, IPMN, CAD s/p angioplasty with stent, hypertension, GERD, BPH, osteoarthritis, recurrent depression, persistent insomnia, rosacea, history of TIA, ongoing alcoholism presents with seizure like episode. Patient states he went to sleep at 4 PM. Thinks he might had seizure episode between 4 and 5 PM. Apparently had a tonic-clonic type activity lasted for several minutes and EMS was called. For EMS patient seem to be somewhat confused and postictal. By the time he came to the ER he was back to his usual self. Seems his son and were with him when he had this episode. No prior episodes. Patient states he drinks 1 bottle of wine every day in the evening around 6 PM to help him go to sleep and to help with his back pain. In the past he had gone without drinking for couple of weeks with no withdrawal symptoms or shakiness per patient. And patient states recently he did not stop drinking. Currently alert and oriented and resting comfortably and hemodynamically stable. Has some back pain and headache. No dizziness. Denies cough. No runny nose or sore throat. No fevers. No chest pain or shortness of breath. No nausea or vomiting. No biting of tongue. No bowel or bladder incontinence.Patient states his losartan dose was doubled to 50 mg daily and first dose he took in the morning.Patient also has diarrhea for several months now Witnessed seizure-like activity CT head okay Currently patient is alert and oriented Received IV Keppra Will continue with IV Keppra 500 mg twice daily IV Ativan as needed for breakthrough seizures Seizure precautions Telemetry Will follow EEG and MRI scan Neurology consult in a.m. for further recommendations Alcoholism States drinks 1 bottle of wine daily Will do alcohol withdrawal protocol with gabapentin and IV Ativan as needed Banana bag IV thiamine and folic acid Close monitor History of CAD s/p stent On aspirin, Coreg ranolazine, statin Hypertension On Coreg, losartan Patient states his losartan was doubled to 50 mg daily which he took yesterday Will monitor Diarrhea Seems chronic Will follow stool studies Hyperlipidemia On statin Hypothyroidism On Synthyroid Will follow TSH Chronic back pain Continue home medications History of IPMN Needs follow-up History of TIA On aspirin and statin Thrombocytopenia Platelets 129 Follow labs Needs follow-up DVT prophylaxis Lovenox. Monitor platelets Disposition Telemetry Full code History of Present Illness Chief Complaint: Seizures Primary Care Provider: Moise Parish MD 68-year-old male with past medical history significant for hyperlipidemia, hypothyroidism, IPMN, CAD s/p angioplasty with stent, hypertension, GERD, BPH, osteoarthritis, recurrent depression, persistent insomnia, rosacea, history of TIA, ongoing alcoholism presents with seizure like episode. Patient states he went to sleep at 4 PM. Thinks he might had seizure episode between 4 and 5 PM. Apparently had a tonic-clonic type activity lasted for several minutes and EMS was called. For EMS patient seem to be somewhat confused and postictal. By the time he came to the ER he was back to his usual self. Seems his son and were with him when he had this episode. No prior episodes. Patient states he drinks 1 bottle of wine every day in the evening around 6 PM to help him go to sleep and to help with his back pain. In the past he had gone without drinking for couple of weeks with no withdrawal symptoms or shakiness per patient. And patient states recently he did not stop drinking. Currently alert and oriented and resting comfortably and hemodynamically stable. Has some back pain and headache. No dizziness. Denies cough. No runny nose or sore throat. No fevers. No chest pain or shortness of breath. No nausea or vomiting. No biting of tongue. No bowel or bladder incontinence.Patient states his losartan dose was doubled to 50 mg daily and first dose he took in the morning.Patient also has diarrhea for several months now Past medical history. As mentioned above. Past surgical history. Hernia repair lower abdomen premature . Right foot bunion correction. Colonoscopy. Hemorrhoidectomy. Coronary artery stent placement. Social history. . No smoking. Drinks alcohol 1 bottle of wine daily. No drug use. Family history. Father had colon cancer. Maternal grandmother had brain cancer. Diabetes. Thyroid disorder. Mother has thyroid disorder. Sister has thyroid disorder. Maternal grandfather had heart disorder. Allergies Allergy/AdvReac Type Severity Reaction Status Date / Time bee venom protein (honey bee) Allergy Severe Anaphylaxis Verified 11/07/23 21:06 hydrocodone Allergy Intermediate Itching Verified 11/07/23 21:05 oxycodone [From Percocet] Allergy Intermediate Itching Verified 11/07/23 21:05 Home Medications Medication Instructions Recorded Confirmed Type aspirin 81 mg tablet,delayed 162 mg PO DAILY 05/04/20 11/07/23 History release (Adult Low Dose Aspirin) levothyroxine 88 mcg capsule 88 mcg PO DAILYBB 05/04/20 11/07/23 History multivitamin (Multiple Vitamins 1 tab PO DAILY 05/04/20 11/07/23 History tablet) omeprazole 20 mg tablet,delayed 20 mg PO DAILYBB 05/04/20 11/07/23 History release rosuvastatin 40 mg tablet (Crestor) 40 mg PO HS 05/04/20 11/07/23 History carvedilol 12.5 mg tablet 12.5 mg PO BID 02/02/23 11/07/23 History ranolazine 500 mg tablet,extended 500 mg PO BID #180 tabs 03/28/23 11/07/23 Rx release,12 hr cholecalciferol (vitamin D3) 10 10 mcg PO DAILY 11/07/23 11/07/23 History mcg (400 unit) capsule (Vitamin D3) lidocaine 5 % topical patch 1 patch topical DAILY PRN Pain 11/07/23 11/07/23 History loratadine 10 mg tablet (Claritin) 10 mg PO DAILY 11/07/23 11/07/23 History losartan 50 mg tablet 50 mg PO DAILY 11/07/23 11/07/23 History methyl salicylate 15 %-menthol 10 1 applic topical TID PRN Pain 11/07/23 11/07/23 History % topical cream metronidazole 0.75 % topical cream 1 applic topical HS 11/07/23 11/07/23 History tizanidine 4 mg tablet 4 mg PO HS PRN MUSCLE SPASMS 11/07/23 11/07/23 History turmeric 400 mg capsule 400 mg PO DAILY 11/07/23 11/07/23 History Past Med/Surg History Problem List (Updated 11/07/23 @ 23:47 by Murray Roland DO) Witnessed seizure-like activity (Acute) Nausea (Acute) Headache (Acute) Fall (Acute) Involuntary trembling (Acute) Weakness (Acute) Stuttering (Acute) Hypertension (Acute) Stroke-like symptoms Medication monitoring encounter Neurogenic claudication due to lumbar spinal stenosis Sleep apnea (Acute) Nephrolithiasis (Acute) Generalized osteoarthritis of multiple sites (Acute) Esophageal reflux (Acute) Benign prostatic hyperplasia (Acute) Antiplatelet or antithrombotic long-term use Presence of drug coated stent in LAD coronary artery Dyslipidemia Hypertension CAD (coronary artery disease) stent x1 to LAD (2003) Medical History 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 Spell of generalized weakness Rib fracture Tremor of both hands History of COVID-19 Chronic back pain Osteoarthritis Hypothyroidism Depression Nonspecific reaction to 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 Dyslipidemia Hypertension CAD (coronary artery disease) Surgical History History of foot surgery History of colonoscopy History of esophagogastroduodenoscopy (EGD) History of cardiac cath H/O hernia repair Family History Grandfather (Maternal) Coronary heart disease Grandmother (Maternal) Family history of diabetes mellitus Father Family hx of colon cancer Social History Smoking Status: Never smoker Second Hand Exposure: No; Do You Dip or Chew Tobacco: No; Hx Alcohol Use: Yes Alcohol type: wine Hx Substance Use: No Preferred Language: Welsh Communication Ability: Effective Refrigerating Engineer Required: No Beliefs That Will Affect Care: None marital status: Current Living Situation: Spouse current occupational status: retired current occupation: Psychologist Other Information That Helps Us Care for You: No Feels Safe at Home: Yes Safety Concerns: Feels Safe At This Time Assistive Devices: Glasses and Hearing Aid - Bilateral Review of Systems Review of Systems: All systems reviewed & are unremarkable except as noted in HPI & below Physical Exam Physical Exam: General- Not in distress. Head- atraumatic Eyes- PERRL. ENT- oropharynx clear Neck- supple, no JVD. Lungs- clear to auscultation no wheezing or crackles. Heart- regular rate and rhythm; no murmur, no gallop. Abdomen- normal bowel sounds, soft, nontender, no distension Extremities- no pretibial edema, no erythema seen. Neuro- alert, oriented x 3; PERRL, no facial palsy; no dysarthria; motor 5/5 bilaterally; no pronator drift, co ordination of movements normal. Skin- warm & dry Results & Data Results & Data Vital Signs (Past 12 Hours) Vital Signs Temp Pulse Pulse Resp BP BP Pulse Ox 11/08/23 00:00 83 18 120/98 99 11/07/23 22:44 79 11/07/23 21:00 72 18 160/84 H 96 11/07/23 20:25 96 11/07/23 18:52 36.9 C 89 18 158/101 H 92 11/07/23 18:49 87 O2 Del Method 11/08/23 00:00 Room Air 11/07/23 22:44 11/07/23 21:00 Room Air 11/07/23 20:25 Room Air 11/07/23 18:52 Room Air 11/07/23 18:49 Diagnostic Findings Laboratory Results WBC 6.19 K/ul (4.8-10.8) 11/07/23 19:09 RBC 4.73 M/uL (4.70-6.10) 11/07/23 19:09 Hgb 13.0 g/dl (14.0-18.0) L 11/07/23 19:09 Hct 40.0 % (42.0-52.0) L 11/07/23 19:09 MCV 84.6 fL (80.0-100.0) 11/07/23 19:09 MCH 27.5 pg (25.0-34.0) 11/07/23 19:09 MCHC 32.5 g/dL (32.0-36.0) 11/07/23 19:09 RDW Std Deviation 39.9 fL (36.4-46.3) 11/07/23 19:09 RDW Coeff of [place] 13.0 % (11.5-14.5) 11/07/23 19:09 Plt Count 129 K/uL (130-400) L 11/07/23 19:09 MPV 8.8 fL (9.4-12.4) L 11/07/23 19:09 Immature Gran % (Auto) 4.2 % 11/07/23 19:09 Neut % (Auto) 64.0 % 11/07/23 19:09 Lymph % (Auto) 11.3 % 11/07/23 19:09 Mower % (Auto) 18.1 % 11/07/23 19:09 Eos % (Auto) 1.8 % 11/07/23 19:09 Baso % (Auto) 0.6 % 11/07/23 19:09 Neut # (Auto) 3.96 K/uL (1.40-6.50) 11/07/23 19:09 Lymph # (Auto) 0.70 K/uL (1.20-3.40) L 11/07/23 19:09 Mower # (Auto) 1.12 K/uL (0.11-0.59) H 11/07/23 19:09 Eos # (Auto) 0.11 K/uL (0.00-0.50) 11/07/23 19:09 Baso # (Auto) 0.04 K/uL (0.00-0.20) 11/07/23 19:09 Immature Gran # (Auto) 0.26 K/uL (0.01-0.20) H 11/07/23 19:09 Sodium 136 mmol/L (136-145) 11/07/23 19:09 Potassium 3.8 mmol/L (3.5-5.1) 11/07/23 19:09 Chloride 104 mmol/L (98-107) 11/07/23 19:09 Carbon Dioxide 25 mmol/L (21-32) 11/07/23 19:09 Anion Gap 7 (3-11) 11/07/23 19:09 BUN 18 mg/dl (6-23) 11/07/23 19:09 Creatinine 1.09 mg/dl (0.6-1.4) 11/07/23 19:09 Est Cr Clr Drug Dosing 79.3 ml/min 11/07/23 19:09 Est GFR ( Amer) 79.8 ml/min 11/07/23 19:09 Est GFR (Non-Af Amer) 68.9 ml/min 11/07/23 19:09 BUN/Creatinine Ratio 16.5 (10-20) 11/07/23 19:09 Glucose 119 mg/dl (70-99(Fasting)) H 11/07/23 19:09 Calcium 9.1 mg/dl (8.6-10.3) 11/07/23 19:09 Total Bilirubin 0.4 mg/dl (0.2-1.0) 11/07/23 19:09 AST 22 U/L (13-39) 11/07/23 19:09 ALT 23 U/L (7-52) 11/07/23 19:09 Alkaline Phosphatase 57 U/L (34-104) 11/07/23 19:09 Troponin I High Sens 13.9 pg/ml (0-20) 11/07/23 19:09 Total Protein 7.3 gm/dl (6.0-8.3) 11/07/23 19:09 Albumin 4.2 gm/dl (3.4-5.0) 11/07/23 19:09 Globulin 3.1 gm/dl (2.5-4.0) 11/07/23 19:09 Albumin/Globulin Ratio 1.4 (0.9-2) 11/07/23 19:[address] 11/07/23 18:51 Exam(s): CT HEAD Without Contrast EXAM: CT Head Without Intravenous Contrast CLINICAL HISTORY: Reason for exam: Seizure. TECHNIQUE: Axial computed tomography images of the head/brain without intravenous contrast. CTDI is 35.65 mGy and DLP is 703.85 mGy-cm. Automated exposure control was utilized for the study. A dose lowering technique was utilized adhering to the principles of ALARA. COMPARISON: 02/03/23 FINDINGS: Brain: Unremarkable. No hemorrhage. No significant white matter disease. No edema. No midline shift. [place]-white matter differentiation maintained. Ventricles: Unremarkable. No hydrocephalus. Bones/joints: Unremarkable. No acute fracture. Soft tissues: Unremarkable. Sinuses: Unremarkable as visualized. Mastoid air cells: Unremarkable as visualized. No mastoid effusion. Vasculature: Intracranial atherosclerosis. IMPRESSION: No acute intracranial process. Electronically signed by: Laura Farias M.D. 11/07/23 20:02 PM ECG Additional Comments: ECG normal sinus rhythm with a rate of 87. Left axis deviation. No significant change was found. Code Status & VTE Plan VTE Prophylaxis Plan VTE Prophylaxis will be ordered: Yes
[2023-11-08] MEDS ORDERED: tiZANidine HCL 4 MG TABLET PO PRN (01:56)
[2023-11-08] MEDS ORDERED: Ativan IV Alcohol Withdrawal--Active Protocol IV PRN (01:56)
[2023-11-08] MEDS ORDERED: POLYETHYLENE (MIRALAX) 17 GM PACK PO PRN (01:56)
[2023-11-08] MEDS ORDERED: LORazepam 2 MG/1 ML VIAL IV PRN ×4 (01:56)
[2023-11-08] MEDS ORDERED: NITROGLYCERIN SL 0.4 MG/TAB TAB SL PRN (01:56)
[2023-11-08] MEDS ORDERED: LIDOCAINE 5% 1 PATCH TD PRN (01:56)
[2023-11-08] MEDS ORDERED: GABAPENTIN 1200MG ALCOHOL WITHDRAWAL LOAD PO STA (01:56)
[2023-11-08] MEDS: oxyCODONE HCL IR 5 MG TAB (IMMEDIATE RELEASE) PO STA ×3 (02:17→20:46)
[2023-11-08] MEDS: GABAPENTIN 600 MG TAB PO ONE (02:17)
[2023-11-08] MEDS: GADOBUTROL 65ML VIAL IV ONE (03:12)
[2023-11-08] MEDS: MULTI-VITAMIN INFUSION 10 ML, THIAMINE HCL 100 MG, FOLIC ACID 1 MG in SODIUM CHLORIDE 0... IV ONE (03:37)
[2023-11-08] MEDS: SODIUM CHLORIDE 0.9% 1,000 ML IV SCH (03:38)
[2023-11-08 04:04] LABS: Basophils # (auto) 0.03 K/uL (0.00-0.20); Basophils % (auto) 0.5 %; Eosinophils % (auto) 1.8 %; Hematocrit (blood only) 36.7 % (42.0-52.0); Immature Granulocytes # (auto) 0.23 K/uL (0.01-0.20); Immature Granulocytes % (auto) 4.2 %; Lymphocytes # (auto) 0.85 K/uL (1.20-3.40); Lymphocytes % (auto) 15.3 %; Mean Corpuscular Hemoglobin 27.7 pg (25.0-34.0); Mean Corpuscular Hgb Conc 32.7 g/dL (32.0-36.0); Mean Corpuscular Volume 84.8 fL (80.0-100.0); Mean Platelet Volume 8.4 fL (9.4-12.4); Monocytes # (auto) 1.09 K/uL (0.11-0.59); Monocytes % (auto) 19.7 %; Neutrophils # (auto) 3.24 K/uL (1.40-6.50); Neutrophils % (auto) 58.5 %; Platelet Count 101 K/uL (130-400); Red Blood Count 4.33 M/uL (4.70-6.10); White Blood Count 5.54 K/ul (4.8-10.8)
[2023-11-08 04:13] LABS: BUN Creatinine Ratio 14.6 (10-20); Calcium 8.2 mg/dl (8.6-10.3); Creatinine Clr Calc Pharmacy 90.1 ml/min; Est GFR (African American) 93.1 ml/min; Est GFR (Non-African American) 80.3 ml/min; Magnesium 1.7 mg/dl (1.7-2.4); Potassium 3.4 mmol/L (3.5-5.1)
[2023-11-08 04:40] LABS: Folate (Folic Acid),Ser orPlas 14.9 ng/ml (>5.38)
--- NOTE | 2023-11-08 05:17 | Magnetic Resonance Report ---
Exam(s): MRI HEAD W/WO Contrast IV Amt: 10cc gadavist EXAM: MR Head Without and With Intravenous Contrast CLINICAL HISTORY: Reason for exam: seizure. TECHNIQUE: Magnetic resonance images of the head/brain without and with intravenous contrast in multiple planes. CONTRAST: Patient received 10cc Gadavist of IV contrast COMPARISON: 02/02/2023. FINDINGS: Brain: No acute hemorrhage or infarct. There are some mild signal abnormality noted in the white matter. No abnormal contrast enhancement is noted.. Ventricles: No ventriculomegaly. Sinuses: Unremarkable as visualized. No acute sinusitis. Mastoid air cells: Unremarkable as visualized. No mastoid effusion. Orbits: Unremarkable as visualized. IMPRESSION: There is mild nonspecific white matter disease. Electronically signed by: Merrill Lombardo MD 11/08/23 05:16 AM
[2023-11-08] MEDS: LEVOTHYROXINE SODIUM 88 MCG TABLET PO SCH (07:02)
[2023-11-08] MEDS: PANTOprazole 40 MG TAB PO SCH (07:02)
[2023-11-08] MEDS: levETIRAcetam IV 500 MG in SODIUM CHLOR 0.9% MINI-B 100 ML IV SCH (08:23)
[2023-11-08] MEDS: FOLIC ACID 1 MG in SYRINGE 9.8 ML IV SCH (08:25)
[2023-11-08] MEDS: GABAPENTIN 600 MG TAB PO SCH ×2 (08:25→20:48)
[2023-11-08] MEDS: THIAMINE HCL 100 MG in SYRINGE 9 ML IV SCH (08:25)
[2023-11-08] MEDS: carvediloL 12.5 MG TAB PO SCH (08:25)
[2023-11-08] MEDS: MULTIVITAMIN TAB PO SCH (08:25)
[2023-11-08] MEDS: ASPIRIN 81 MG ECTAB PO SCH (08:26)
[2023-11-08] MEDS: CHOLECALCIFEROL 10 MCG (400 UNITS) TAB PO SCH (08:26)
[2023-11-08] MEDS: RANOLAZINE 500 MG ER TAB PO SCH (08:26)
[2023-11-08] MEDS: LORATADINE 10 MG TAB PO SCH (08:26)
[2023-11-08] MEDS: LOSARTAN POTASSIUM 50 MG TAB PO SCH (08:26)
[2023-11-08] MEDS: ENOXAPARIN INJ 40 MG/0.4 ML SYR SQ SCH (08:41)
--- NOTE | 2023-11-08 10:41 | Communication Note ---
Date of Service: November 08, 2023 Patient seen and examined at bedside. No episode of altered mentation since admission He is alert oriented x 3. Vital signs stable MRI brain does not show any acute findings On physical exam; Constitutional: WD/WN, vitals as above, NAD, sitting up in bed, pleasant, conversing easily Respiratory: normal respiratory effort, lungs clear to auscultation, no wheeze, rales, rhonchi. Normal insp/exp effort, no accessory muscle use Cardiovascular: RRR, no murmur, no edema Vessels: no JVD or carotid bruit Chest: normal inspection of chest Abdomen: normal bowel sounds, soft, nontender, no hepatosplenomegaly Musculoskeletal: Pain in movement of right hip; chronic Skin: no rashes, warm and dry normal turgor Neurologic: PERRL, EOMI, accommodation nl, no face palsy, no dysarthria CN's II- XI intact bilaterally and moves all extremities Psychiatric: A+Ox3, euthymic affect Assessment/plan Possible seizure Patient presented with possible seizure with confusion Head CTno acute finding Brain MRImild nonspecific white matter disease Started on Keppra 500 twice daily Neurology consulted for comanagement; appreciate recommendation Seizure precaution Alcohol use disorder Currently on gabapentin and Ativan alcohol withdrawal regimen Monitor for signs or symptoms of withdrawal. Please note the above document was generated using voice recognition software. It may contain grammatical, syntax or spelling errors. Any formal questions or concerns about the content, text or information contained within the body of this dictation should be directly addressed to the provider for clarification
--- NOTE | 2023-11-08 16:14 | Neurology Consultation ---
Date of Consultation November 08, 2023 Assessment & Plan (1) Witnessed seizure-like activity: MRI of the brain shows some signal changes of bilateral mesial temporal lobes EEG read is still pending Plan Recommend continue Keppra 500 mg twice daily. Consider phenobarbital taper to get him off alcohol versus Librium. To help with chronic pain, depression and sleep consider nortriptyline 25 mg at bedtime. The patient needs to follow-up with neurology as an outpatient to further determine plan of care. Continue thiamine and folate. seizure precautions : please report to [place] Do not drive. Avoid all other activities in which a sudden loss of consciousness would be dangerous, including but not limited to unsecured heights (scaffolding, ladders...), heavy machiner or machine tools or other machinery with moving parts, open flame, swimming pools (keeping in mind that a bathtub full of water is a small swimming pool), etc. Telehealth Consultation Telehealth Information Telehealth Information: I performed this visit using a real-time telehealth connection between my location and the patients location ([facility]). After connecting through interactive tele-video, patient was identified by name and date of and/or wristband check.Patient (or authorized healthcare life assurance representative) was informed that this was a telemedicine visit and it was being conducted confidentially over secure lines. My office door was closed and no one else was present in the room with me.Patient (or authorized healthcare life assurance representative) provided consent to proceed with the visit, expressed an understanding of privacy and security of the telemedicine visit, and gave permission to have a hospital life assurance representative in the room in order to assist with the visit and to conduct portions of the visit, as needed. I informed the patient (or authorized healthcare life assurance representative) that I reviewed their record and presented the opportunity for them to ask any questions regarding the visit today. The patient agreed to participate. 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 The patient reports that he drinks wine for insomnia and for chronic pain. He denies any blurry vision numbness weakness or current focal neurological deficits, there was an incidence in January 2023 that is unclear in etiology. . Denies any recent illness Allergies Allergy/AdvReac Type Severity Reaction Status Date / Time bee venom protein (honey bee) Allergy Severe Anaphylaxis Verified 11/07/23 21:06 hydrocodone Allergy Intermediate Itching Verified 11/07/23 21:05 oxycodone [From Percocet] Allergy Intermediate Itching Verified 11/07/23 21:05 Home Medications Medication Instructions Recorded Confirmed Type aspirin 81 mg tablet,delayed 162 mg PO DAILY 05/04/20 11/07/23 History release (Adult Low Dose Aspirin) levothyroxine 88 mcg capsule 88 mcg PO DAILYBB 05/04/20 11/07/23 History multivitamin (Multiple Vitamins 1 tab PO DAILY 05/04/20 11/07/23 History tablet) omeprazole 20 mg tablet,delayed 20 mg PO DAILYBB 05/04/20 11/07/23 History release rosuvastatin 40 mg tablet (Crestor) 40 mg PO HS 05/04/20 11/07/23 History carvedilol 12.5 mg tablet 12.5 mg PO BID 02/02/23 11/07/23 History ranolazine 500 mg tablet,extended 500 mg PO BID #180 tabs 03/28/23 11/07/23 Rx release,12 hr cholecalciferol (vitamin D3) 10 10 mcg PO DAILY 11/07/23 11/07/23 History mcg (400 unit) capsule (Vitamin D3) lidocaine 5 % topical patch 1 patch topical DAILY PRN Pain 11/07/23 11/07/23 History loratadine 10 mg tablet (Claritin) 10 mg PO DAILY 11/07/23 11/07/23 History losartan 50 mg tablet 50 mg PO DAILY 11/07/23 11/07/23 History methyl salicylate 15 %-menthol 10 1 applic topical TID PRN Pain 11/07/23 11/07/23 History % topical cream metronidazole 0.75 % topical cream 1 applic topical HS 11/07/23 11/07/23 History tizanidine 4 mg tablet 4 mg PO HS PRN MUSCLE SPASMS 11/07/23 11/07/23 History turmeric 400 mg capsule 400 mg PO DAILY 11/07/23 11/07/23 History Patient History Medical History 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 Spell of generalized weakness Rib fracture Tremor of both hands History of COVID-19 Chronic back pain Osteoarthritis Hypothyroidism Depression Nonspecific reaction to 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 Dyslipidemia Hypertension CAD (coronary artery disease) Surgical History History of foot surgery History of colonoscopy History of esophagogastroduodenoscopy (EGD) History of cardiac cath H/O hernia repair Family History Grandfather (Maternal) Coronary heart disease Grandmother (Maternal) Family history of diabetes mellitus Father Family hx of colon cancer Social History Smoking Status: Never smoker Second Hand Exposure: No; Do You Dip or Chew Tobacco: No; Hx Alcohol Use: Yes Alcohol type: wine Hx Substance Use: No Preferred Language: Turkmen Communication Ability: Effective Literacy Education Professor Required: No Beliefs That Will Affect Care: None marital status: Current Living Situation: Spouse current occupational status: retired current occupation: Psychologist Other Information That Helps Us Care for You: No Feels Safe at Home: Yes Safety Concerns: Feels Safe At This Time Assistive Devices: Glasses and Hearing Aid - Bilateral Review of Systems Constitutional: Patient denies weight loss, fever, chills, and night sweats Eyes: Patient denies change in vision, tearing, pain, and redness ENT: Patient denies pain, bleeding, rhinorrhea, and dysphagia Cardiovascular: Patient denies chest pain, palpitation, dyspnea at rest, and dyspnea with exertion Respiratory: Patient denies shortness of breath, cough, wheezing, and productive cough GI: Patient denies reflux, pain, constipation, and diarrhea Skin: Patient denies rash, dryness, and itching Allergies/Immune System: Patient denies rhinorrhea, seasonal allergies, reaction to current MEDS, and joint swelling Endocrine: Patient denies weight loss, weight gain, temperature intolerance, and excessive thirst Neurological: All negative unless mentioned in the HPI Physical Exam General Constitutional: Appearance normally developed Head and face: normocephalic and atraumatic Eyes: no ptosis, no anisocoria, and no dysconjugate gaze Respiratory: normal effort Cardiovascular: regular rhythm and regular rate Abdomen: non distended Skin: no rashes, lesions, or ulcers noted Psychiatric: normal judgement and insight, normal mood, and normal affect NEUROLOGIC EXAMINATION: Mental Status:alert, oriented to time, place, person, normal recent memory, normal remote memory, normal attention span, normal concentration, normal language and normal fund of knowledge Cranial Nerves: CN 2 - no visual defect on confrontation and pupils round, equal, reactive to light CN 3, 4, 6 - extra-ocular movements intact and no nystagmus CN 5 - facial sensation intact CN 7 - no facial asymmetry CN 8 - intact hearing CN 9, 10 - palate symmetric, normal gag CN 11 - good shoulder shrug CN 12 - tongue midline MOTOR: Strength was at least antigravity throughout, Pronator drift was absent and There were no abnormal movements SENSATION: intact and symmetric to pinprick, light touch, vibration and joint position GAIT: stable, no ataxia and can perform tandem walking COORDINATION: no ataxia with finger to nose testing and heel to vang testing REFLEXES: cannot assess over telemedicine Results & Data Vital Signs (Past 12 Hours) Vital Signs Pulse Pulse Resp BP Pulse Ox O2 Del Method 11/08/23 13:30 73 18 156/89 H 95 Room Air 11/08/23 13:00 65 18 166/88 H 94 Room Air 11/08/23 12:30 65 18 158/85 H 93 Room Air 11/08/23 11:20 71 14 160/82 H 95 Room Air 11/08/23 08:00 66 17 143/85 H 93 Room Air 11/08/23 07:11 67 Laboratory Results Abnormal lab results 11/07/23 11/08/23 Range/Units 19:09 03:46 RBC 4.33 L (4.70-6.10) M/uL Hgb 13.0 L 12.0 L (14.0-18.0) g/dl Hct 40.0 L 36.7 L (42.0-52.0) % Plt Count 129 L 101 L (130-400) K/uL MPV 8.8 L 8.4 L (9.4-12.4) fL Lymph # (Auto) 0.70 L 0.85 L (1.20-3.40) K/uL [place] # (Auto) 1.12 H 1.09 H (0.11-0.59) K/uL Immature Gran # (Auto) 0.26 H 0.23 H (0.01-0.20) K/uL Potassium 3.4 L (3.5-5.1) mmol/L Glucose 119 H 108 H (70-99(Fasting)) mg/dl Calcium 8.2 L (8.6-10.3) mg/dl Diagnostic Findings Head CT 11/07/23 18:51 Exam(s): CT HEAD Without Contrast EXAM: CT Head Without Intravenous Contrast CLINICAL HISTORY: Reason for exam: Seizure. TECHNIQUE: Axial computed tomography images of the head/brain without intravenous contrast. CTDI is 35.65 mGy and DLP is 703.85 mGy-cm. Automated exposure control was utilized for the study. A dose lowering technique was utilized adhering to the principles of ALARA. COMPARISON: 02/03/23 FINDINGS: Brain: Unremarkable. No hemorrhage. No significant white matter disease. No edema. No midline shift. [place]-white matter differentiation maintained. Ventricles: Unremarkable. No hydrocephalus. Bones/joints: Unremarkable. No acute fracture. Soft tissues: Unremarkable. Sinuses: Unremarkable as visualized. Mastoid air cells: Unremarkable as visualized. No mastoid effusion. Vasculature: Intracranial atherosclerosis. IMPRESSION: No acute intracranial process. Electronically signed by: Laura Farias M.D. 11/07/23 20:02 PM Brain MRI 11/08/23 01:56 Exam(s): MRI HEAD W/WO Contrast IV Amt: 10cc gadavist EXAM: MR Head Without and With Intravenous Contrast CLINICAL HISTORY: Reason for exam: seizure. TECHNIQUE: Magnetic resonance images of the head/brain without and with intravenous contrast in multiple planes. CONTRAST: Patient received 10cc Gadavist of IV contrast COMPARISON: 02/02/2023. FINDINGS: Brain: No acute hemorrhage or infarct. There are some mild signal abnormality noted in the white matter. No abnormal contrast enhancement is noted.. Ventricles: No ventriculomegaly. Sinuses: Unremarkable as visualized. No acute sinusitis. Mastoid air cells: Unremarkable as visualized. No mastoid effusion. Orbits: Unremarkable as visualized. IMPRESSION: There is mild nonspecific white matter disease. Electronically signed by: Merrill Lombardo MD 11/08/23 05:16 AM Medications Administered Home Medications Medication Instructions Recorded Confirmed Last Taken aspirin 81 mg tablet,delayed 162 mg PO DAILY 05/04/20 11/07/23 11/07/23 release (Adult Low Dose Aspirin) levothyroxine 88 mcg capsule 88 mcg PO DAILYBB 05/04/20 11/07/23 11/07/23 multivitamin (Multiple Vitamins 1 tab PO DAILY 05/04/20 11/07/23 11/07/23 tablet) omeprazole 20 mg tablet,delayed 20 mg PO DAILYBB 05/04/20 11/07/23 11/07/23 release rosuvastatin 40 mg tablet (Crestor) 40 mg PO HS 05/04/20 11/07/23 11/06/23 carvedilol 12.5 mg tablet 12.5 mg PO BID 02/02/23 11/07/23 11/07/23 08:00 ranolazine 500 mg tablet,extended 500 mg PO BID #180 tabs 03/28/23 11/07/23 11/07/23 08:00 release,12 hr cholecalciferol (vitamin D3) 10 10 mcg PO DAILY 11/07/23 11/07/23 11/07/23 mcg (400 unit) capsule (Vitamin D3) lidocaine 5 % topical patch 1 patch topical DAILY PRN Pain 11/07/23 11/07/23 Unknown loratadine 10 mg tablet (Claritin) 10 mg PO DAILY 11/07/23 11/07/23 11/07/23 losartan 50 mg tablet 50 mg PO DAILY 11/07/23 11/07/23 11/07/23 methyl salicylate 15 %-menthol 10 1 applic topical TID PRN Pain 11/07/23 11/07/23 Unknown % topical cream metronidazole 0.75 % topical cream 1 applic topical HS 11/07/23 11/07/23 11/06/23 tizanidine 4 mg tablet 4 mg PO HS PRN MUSCLE SPASMS 11/07/23 11/07/23 Unknown turmeric 400 mg capsule 400 mg PO DAILY 11/07/23 11/07/23 11/07/23 Active Medications Generic Name Dose Route Start Last Admin Trade Name Freq PRN Reason Stop Dose Admin Aspirin 162 mg 11/08/23 09:00 11/08/23 08:26 Aspirin 81 Mg Ectab PO 12/08/23 08:59 162 mg DAILY CARLO Administration Carvedilol 12.5 mg 11/08/23 09:00 11/08/23 08:25 Carvedilol 12.5 Mg Tab PO 12/08/23 08:59 12.5 mg BID CARLO Administration Enoxaparin Sodium 40 mg 11/08/23 09:00 11/08/23 08:41 Enoxaparin Inj 40 Mg/0.4 Ml Syr SQ 12/08/23 08:59 Not Given Q24H CARLO Levetiracetam 500 mg/ Sodium 105 mls @ 420 mls/hr 11/08/23 09:00 11/08/23 08:42 Chloride IV 12/08/23 08:59 Infused Q12H CARLO Infusion Thiamine HCl 100 mg/ Syringe 10 mls @ 2 mls/min 11/08/23 09:00 11/08/23 08:25 IV 12/08/23 08:59 2 mls/min QAM CARLO Administration Folic Acid 1 mg/ Syringe 10 mls @ 5 mls/min 11/08/23 09:00 11/08/23 08:25 IV 12/08/23 08:59 5 mls/min QAM CARLO Administration Levothyroxine Sodium 88 mcg 11/08/23 06:30 11/08/23 07:02 Levothyroxine Sodium 88 Mcg Tablet PO 12/08/23 06:29 88 mcg DAILYBB CARLO Administration Loratadine 10 mg 11/08/23 09:00 11/08/23 08:26 Loratadine 10 Mg Tab PO 12/08/23 08:59 10 mg DAILY CARLO Administration Losartan Potassium 50 mg 11/08/23 09:00 11/08/23 08:26 Losartan Potassium 50 Mg Tab PO 12/08/23 08:59 50 mg DAILY CARLO Administration Multivitamins 1 tab 11/08/23 09:00 11/08/23 08:25 Multivitamin Tab PO 12/08/23 08:59 1 tab DAILY CARLO Administration Pantoprazole Sodium 40 mg 11/08/23 06:30 11/08/23 07:02 Pantoprazole 40 Mg Tab PO 12/08/23 06:29 40 mg DAILYBB CARLO Administration Ranolazine 500 mg 11/08/23 09:00 11/08/23 08:26 Ranolazine 500 Mg Er Tab PO 12/08/23 08:59 500 mg BID CARLO Administration Vitamin D 10 mcg 11/08/23 09:00 11/08/23 08:26 Cholecalciferol 10 Mcg (400 Units) Tab PO 12/08/23 08:59 10 mcg DAILY CARLO Administration
[2023-11-08] MEDS: metroNIDAZOLE 0.75% TOPICAL GEL 45 GM TUBE TOP SCH (19:50)
[2023-11-08] MEDS: FLUTICASONE PROPIONATE NA SPR 16 GM BTL SCH (20:45)
[2023-11-08] MEDS: ROSUVASTATIN CALCIUM 20 MG TAB PO SCH (20:45)
[2023-11-08] MEDS: LORazepam 0.5 MG TAB PO STA (20:46)
--- NOTE | 2023-11-09 00:29 | Electrocardiogram Report ---
Test Reason : Blood Pressure : */* mmHG Vent. Rate : 87 BPM Atrial Rate : 87 BPM P-R Int : 190 ms QRS Dur : 84 ms QT Int : 368 ms P-R-T Axes : 49 -36 12 degrees QTcB Int : 442 ms Normal sinus rhythm Left axis deviation Abnormal ECG When compared with ECG of 03-Feb-2023 06:06, QT has shortened Confirmed by Joshua Akins ([id number]) on 11/09/2023 12:28:36 AM Referred By: REFERRED SELF Confirmed By: Joshua Akins
[2023-11-09 07:43] VITALS: RESP 18
[2023-11-09] MEDS: ACETAMINOPHEN 325 MG TAB PO PRN (09:00)
--- NOTE | 2023-11-09 09:05 | Discharge Summary ---
Date of Service November 09, 2023 Admission HPI Per Admitting Provider 68-year-old male with past medical history significant for hyperlipidemia, hypothyroidism, IPMN, CAD s/p angioplasty with stent, hypertension, GERD, BPH, osteoarthritis, recurrent depression, persistent insomnia, rosacea, history of TIA, ongoing alcoholism presents with seizure like episode. Patient states he went to sleep at 4 PM. Thinks he might had seizure episode between 4 and 5 PM. Apparently had a tonic-clonic type activity lasted for several minutes and EMS was called. For EMS patient seem to be somewhat confused and postictal. By the time he came to the ER he was back to his usual self. Seems his son and were with him when he had this episode. No prior episodes. Patient states he drinks 1 bottle of wine every day in the evening around 6 PM to help him go to sleep and to help with his back pain. In the past he had gone without drinking for couple of weeks with no withdrawal symptoms or shakiness per patient. And patient states recently he did not stop drinking. Currently alert and oriented and resting comfortably and hemodynamically stable. Has some back pain and headache. No dizziness. Denies cough. No runny nose or sore throat. No fevers. No chest pain or shortness of breath. No nausea or vomiting. No biting of tongue. No bowel or bladder incontinence.Patient states his losartan dose was doubled to 50 mg daily and first dose he took in the morning.Patient also has diarrhea for several months now Past medical history. As mentioned above. Past surgical history. Hernia repair lower abdomen premature . Right foot bunion correction. Colonoscopy. Hemorrhoidectomy. Coronary artery stent placement. Social history. . No smoking. Drinks alcohol 1 bottle of wine daily. No drug use. Family history. Father had colon cancer. Maternal grandmother had brain cancer. Diabetes. Thyroid disorder. Mother has thyroid disorder. Sister has thyroid disorder. Maternal grandfather had heart disorder. Admission Exam Per Admitting Provider General- Not in distress. Head- atraumatic Eyes- PERRL. ENT- oropharynx clear Neck- supple, no JVD. Lungs- clear to auscultation no wheezing or crackles. Heart- regular rate and rhythm; no murmur, no gallop. Abdomen- normal bowel sounds, soft, nontender, no distension Extremities- no pretibial edema, no erythema seen. Neuro- alert, oriented x 3; PERRL, no facial palsy; no dysarthria; motor 5/5 bilaterally; no pronator drift, co ordination of movements normal. Skin- warm & dry Principal Diagnosis Seizure disorder Discharge Exam Constitutional: WD/WN, vitals as above, NAD, sitting up in bed, pleasant, conversing easily Respiratory: normal respiratory effort, lungs clear to auscultation, no wheeze, rales, rhonchi. Normal insp/exp effort, no accessory muscle use Cardiovascular: RRR, no murmur, no edema Vessels: no JVD or carotid bruit Chest: normal inspection of chest Abdomen: normal bowel sounds, soft, nontender, no hepatosplenomegaly Musculoskeletal: Pain in movement of right hip; chronic Skin: no rashes, warm and dry normal turgor Neurologic: PERRL, EOMI, accommodation nl, no face palsy, no dysarthria CN's II- XI intact bilaterally and moves all extremities Psychiatric: A+Ox3, euthymic affect Discharge Data Allergies Allergy/AdvReac Type Severity Reaction Status Date / Time bee venom protein (honey bee) Allergy Severe Anaphylaxis Verified 11/07/23 21:06 hydrocodone Allergy Intermediate Itching Verified 11/07/23 21:05 oxycodone [From Percocet] Allergy Intermediate Itching Verified 11/07/23 21:05 Consultations 11/07/23 20:50 ED Decision to Admit Stat 11/08/23 08:00 Consult Neurology Routine Ordered Studies 11/07/23 18:51 CT head/brain wo con Stat 11/08/23 01:56 MRI Brain [MR brain wo/w con] Urgent Hospital Course (1) Witnessed seizure-like activity: 68-year-old male with past medical history significant for hyperlipidemia, hypothyroidism, IPMN, CAD s/p angioplasty with stent, hypertension, GERD, BPH, osteoarthritis, recurrent depression, persistent insomnia, rosacea, history of TIA, ongoing alcoholism presents with seizure like episode. Possible seizure Patient presented with possible seizure with confusion Head CTno acute finding Brain MRImild nonspecific white matter disease Patient was admitted to medical floor. Neurology was consulted for comanagement . Neurology recommended Keppra 500 mg twice daily. Also recommended nortriptyline at bedtime for sleep, pain. Instruction were given to the patient regarding seizure precautions. Patient to follow-up with PCP and obtain neurology referral for long-term management. Alcohol use disorder Patient was placed on alcohol withdrawal protocol with Ativan and gabapentin during the hospitalization. Patient did not have any signs or symptoms of alcohol withdrawal at the time of the discharge. Patient recommended to follow-up with primary care doctor regarding long-term management of alcohol use disorder. Please note the above document was generated using voice recognition software. It may contain grammatical, syntax or spelling errors. Any formal questions or concerns about the content, text or information contained within the body of this dictation should be directly addressed to the provider for clarification Total Time Total Time Spent Total Time Spent (In Minutes): 45 Total Time Includes: Examination of the Patient, Discharge Planning, Medication Reconciliation, Communication With Other Providers and Other Discharge Plan Discharge Items Patient Disposition: Home - Self-Care Reason For Visit: SEIZURE Discharge Diagnosis: Seizure Activity: Resume your previous activity Non-emergency contact: Primary Care Provider Call non-emergency contact if: you have any medication questions and your symptoms worsen Follow-up/Referrals: Moise Parish MD [Primary Care Provider] - Diet: Regular Addtl Attending Provider Instructions: You were admitted to the hospital due to concern for seizure. You were evaluated by neurology who recommended Keppra 500 mg twice a day. They also recommend nortriptyline 25 mg at night to help with chronic pain, depression and sleep. An appointment with her primary care doctor will be made for you. You will need referral for neurology for long-term management of seizure. Do not drive. Avoid all other activities in which a sudden loss of consciousness would be dangerous, including but not limited to unsecured heights (scaffolding, ladders...), heavy machinery or machine tools or other machinery with moving parts, open flame, swimming pools (keeping in mind that a bathtub full of water is a small swimming pool), etc. Pending Studies at Discharge: No Stand-Alone Forms: My [employer], Smoking Cessation Medications and DC Order Prescriptions: New levetiracetam [Keppra] 500 mg tablet 500 mg PO BID Qty: 60 0RF nortriptyline 25 mg capsule 25 mg PO HS Qty: 30 0RF thiamine HCl (vitamin B1) 100 mg tablet 100 mg PO DAILY Qty: 90 0RF folic acid 1 mg tablet 1,000 mcg PO DAILY Qty: 60 0RF Continued ranolazine 500 mg tablet extended release 12 hr 500 mg PO BID Qty: 180 3RF aspirin [Adult Low Dose Aspirin] 81 mg tablet,delayed release (DR/EC) 162 mg PO DAILY levothyroxine 88 mcg capsule 88 mcg PO DAILYBB multivitamin [Multiple Vitamins] tablet 1 tab PO DAILY rosuvastatin [Crestor] 40 mg tablet 40 mg PO HS omeprazole 20 mg tablet,delayed release (DR/EC) 20 mg PO DAILYBB carvedilol 12.5 mg Tablet 12.5 mg PO BID Rx Instructions: must administer with a meal/food losartan 50 mg Tablet 50 mg PO DAILY tizanidine 4 mg Tablet 4 mg PO HS PRN (Reason: MUSCLE SPASMS) lidocaine 5 % Adhesive Patch,Medicated 1 patch TOPICAL DAILY PRN (Reason: Pain) Rx Instructions: leave on most painful area for up to 12 hrs metronidazole 0.75 % Cream 1 applic TOPICAL HS Rx Instructions: APPLY SPARINGLY ON SKIN FOR ROSECEA loratadine [Claritin] 10 mg Tablet 10 mg PO DAILY cholecalciferol (vitamin D3) [Vitamin D3] 10 mcg (400 unit) Capsule 10 mcg PO DAILY methyl salicylate-menthol 15-10 % Cream 1 applic TOPICAL TID PRN (Reason: Pain) turmeric 400 mg Capsule 400 mg PO DAILY Discharge Orders: Discharge Order (Routine); Ordered 11/09/23 Ordered By: Jordin Wilcox Admission Data Admit Date/Time: 11/08/23 01:29 Attending Provider: Jordin Wilcox Admit Provider: Phillip Nelson Primary Care Provider: Moise Parish Other Providers: Phillip Nelson; Merly Hummel; Terry Quiros; Merly Clayton; Gary Staley; Neftali Broussard; Jona Palmer; Moise Jara; Davina Lovell; Osman Hayes; Zack Rice; Therese Singleton; Shahriar Bland; Jo Lezama; Judie Park; Moise Bergman Other Interventions: Discharge Summary Assessment (RN) Last Done: 11/09/23 10:50
[2023-11-09 11:04] VITALS: BP 145/84; PULSE 89; TEMP 98.6; O2SAT 93
[2023-11-10] MEDS ORDERED: GABAPENTIN 600 MG TAB PO SCH (01:30)
[2023-11-11] MEDS ORDERED: GABAPENTIN 600 MG TAB PO SCH (13:30)
== END 2023-11-09 12:33 | disposition home or self-care (01) | DRG 101 ==
LOC: ED 18:39 → INTOOBSV 11-08 01:29 → EDINP 11-08 01:29 → 2E 11-08 01:57